=== PATIENT | female | born 1955 | race Two or more races ===

== ENCOUNTER → 2016-08-30 | Outpatient (REF) | payer BC ==
[2016-08-30 17:34] LABS: ALBUMIN 4.2 GM/DL (3.2-5.2); ALBUMIN/GLOBULIN RATIO 1.62 (1.00-1.93); ALKALINE PHOSPHATASE 45 U/L (45-117); ALT/SGPT 15 U/L (12-78); ANION GAP 9 MEQ/L (8-16); AST/SGOT 8 U/L (15-37); BILIRUBIN,TOTAL 0.5 MG/DL (0.2-1.0); BLOOD UREA NITROGEN 17 MG/DL (7-18); CALCIUM LEVEL 9.1 MG/DL (8.8-10.2); CARBON DIOXIDE LEVEL 28 MEQ/L (21-32); CHLORIDE LEVEL 106 MEQ/L (98-107); CHOLESTEROL LEVEL 256 MG/DL (<200); CREATININE FOR GFR 0.79 MG/DL (0.55-1.02); GLOMERULAR FILTRATION RATE > 60.0 (>45); GLUCOSE, FASTING 103 MG/DL (80-110); POTASSIUM SERUM 4.4 MEQ/L (3.5-5.1); SODIUM LEVEL 143 MEQ/L (136-145); TOTAL PROTEIN 6.8 GM/DL (6.4-8.2); TRIGLYCERIDES LEVEL 159 MG/DL (<150)
== END ==
LOC: M SFHCCLAY 10:00
PROVIDERS: ATTEND Family Medicine
DX: E78.4 Other hyperlipidemia (principal)

== ENCOUNTER → 2016-08-30 | Outpatient (CLI) | payer BC ==
--- NOTE | 2016-08-30 10:54 | REP ---
Clinical: Right chest and rib pain . Comparison: None . Technique: PA and lateral. Findings: The mediastinum and cardiac silhouette are normal. The lung camacho are clear and without acute consolidation, effusion, or pneumothorax. The skeletal structures are intact and normal. Impression: 1. No acute cardiopulmonary process.
== END ==
LOC: M CLY 10:12
PROVIDERS: ATTEND Family Medicine
DX: R07.81 Pleurodynia (principal)

== ENCOUNTER → 2016-10-29 | Outpatient (CLI) | payer BC ==
[2016-10-29 18:21] LABS: ALBUMIN 3.9 GM/DL (3.2-5.2); ANION GAP 9 MEQ/L (8-16); BLOOD UREA NITROGEN 21 MG/DL (7-18); CARBON DIOXIDE LEVEL 27 MEQ/L (21-32); CHLORIDE LEVEL 106 MEQ/L (98-107); CREATININE FOR GFR 0.93 MG/DL (0.55-1.02); GLOMERULAR FILTRATION RATE > 60.0 (>45); GLUCOSE, FASTING 106 MG/DL (80-110); MAGNESIUM LEVEL 2.3 MG/DL (1.8-2.4); PHOSPHORUS LEVEL 3.8 MG/DL (2.5-4.9); POTASSIUM SERUM 4.1 MEQ/L (3.5-5.1); SODIUM LEVEL 142 MEQ/L (136-145)
== END ==
LOC: M LAB 16:23
PROVIDERS: ATTEND Internal Medicine Cardiovascular Disease
DX: I10 Essential (primary) hypertension (principal); R00.2 Palpitations; R94.31 Abnormal electrocardiogram [ECG] [EKG]

== ENCOUNTER → 2016-12-12 | Outpatient (CLI) | payer BC ==
[2016-12-12 09:03] LABS: ALBUMIN 3.9 GM/DL (3.2-5.2); ALBUMIN/GLOBULIN RATIO 1.39 (1.00-1.93); BILIRUBIN,DIRECT 0.1 MG/DL (0.0-0.2); BILIRUBIN,TOTAL 0.5 MG/DL (0.2-1.0); TOTAL PROTEIN 6.7 GM/DL (6.4-8.2)
== END ==
LOC: M LAB 07:56
PROVIDERS: ATTEND Internal Medicine Cardiovascular Disease
DX: E78.00 Pure hypercholesterolemia, unspecified (principal)

== ENCOUNTER → 2017-03-14 | Outpatient (CLI) | payer BC ==
--- NOTE | 2017-03-14 14:30 | REPMRS ---
Patient History The patient states she had a clinical breast exam in November 2016. Family history of prostate cancer in maternal grandfather at age 75 and breast cancer in paternal aunt at age 65. Took hormonal contraceptives for 5 years. Taking estrogen for 3 months. Taking unspecified hormones for 3 years. Digital Mammo Screening Bilat: March 14, 2017 - Exam #: [id number] Bilateral CC and MLO view(s) were taken. Technologist: Joanna Santiago, Technologist Prior study comparison: February 21, 2016, bilateral digital mammo screening bilat performed at [facility]. November 05, 2014, bilateral digital mammo screening bilat performed at [facility]. October 28, 2013, bilateral bilat screen digital mammo, performed at [facility] ([facility]). FINDINGS: There are scattered fibroglandular densities. There has been no change in the appearance of the mammogram from the prior studies. There is a mild amount of scattered fibroglandular density which is fairly symmetric. There is no interval development of dominant mass, architectural distortion, or clustered microcalcification suggestive of malignancy. ASSESSMENT: BI-RADS/ACR category 1 mammogram. Negative. Recommendation Routine screening mammogram in 1 year (for women over age 40). This mammogram was interpreted with the aid of an FDA-approved computer-aided dectection system. Electronically Signed By: Jigar Moses MD 03/14/17 1370
== END ==
LOC: M RAD 13:51
PROVIDERS: ATTEND Specialist
DX: Z12.31 Encounter for screening mammogram for malignant neoplasm of breast (principal)

== ENCOUNTER → 2017-03-14 | Outpatient (CLI) | payer BC ==
[2017-03-14 15:45] LABS: ALBUMIN 4.1 GM/DL (3.2-5.2); CREATININE FOR GFR 1.08 MG/DL (0.55-1.02); GLOMERULAR FILTRATION RATE 54.7 (>45); PHOSPHORUS LEVEL 3.7 MG/DL (2.5-4.9); POTASSIUM SERUM 3.9 MEQ/L (3.5-5.1)
== END ==
LOC: M LAB 14:17
PROVIDERS: ATTEND Internal Medicine Cardiovascular Disease
DX: I10 Essential (primary) hypertension (principal)

== ENCOUNTER → 2017-04-17 | Outpatient (CLI) | payer BC ==
--- NOTE | 2017-04-17 13:23 | PFTRPT ---
Tech: Margarito ARMSTRONG RRT Age: 62 Sex: Female Race: Height: 63.00 Inches Weight: 166.00 Lbs BSA: 1.79 Diagnosis: R06.09 PULMONARY FUNCTION REPORT ORDERING PROVIDER: Vishal Ruiz DO DATE OF SERVICE: 04/17/17 SPIROMETRY: Excellent technical quality. The forced vital capacity is normal. The FEV1 is in proportion. The obstructive index is, therefore, normal. FLOW VOLUME LOOP: The expiratory limb of the flow volume loop is normal. LUNG VOLUMES: The total lung capacity is normal. The residual volume is borderline for air trapping. DIFFUSION CAPACITY: The diffusion capacity is normal. HEMOGLOBIN: No hemoglobin is available for correction. AIRWAY MECHANICS: Airways resistance and conductance are normal. IMPRESSION: Borderline air trapping; otherwise, normal study. Please correlate clinically. MTDD
== END ==
LOC: M CARPUL 12:48
PROVIDERS: ATTEND Family Medicine
DX: R06.09 Other forms of dyspnea (principal)

== ENCOUNTER → 2017-06-06 | Outpatient (RCR) | payer BC | LOC: M PT 05-21 15:37 | PROVIDERS: ATTEND Family Medicine | DX: Z51.89 Encounter for other specified aftercare (principal); M54.6 Pain in thoracic spine; M54.5 Low back pain | CPT/HCPCS: 97035; 97110; 97162; G0283 ==

== ENCOUNTER 2017-06-10 15:41 | Outpatient (RCR) | payer BC | END 2017-07-07 | LOC: M PT 15:41 | DX: Z51.89 Encounter for other specified aftercare (principal); M54.6 Pain in thoracic spine; M54.5 Low back pain | CPT/HCPCS: 97110 ==

== ENCOUNTER 2017-07-12 12:47 | Outpatient (RCR) | payer BC | END 2017-08-07 | LOC: M PT 12:47 | DX: Z51.89 Encounter for other specified aftercare (principal); M54.6 Pain in thoracic spine; M54.5 Low back pain | CPT/HCPCS: 97110 ==

== ENCOUNTER → 2017-07-18 | Outpatient (REF) | payer BC ==
[2017-07-18 13:14] LABS: BASO # 0.1 10^3/uL (0.0-0.2); BASO % 1.2 % (0.0-1.0); EOS # 0.2 10^3/uL (0.0-0.50); EOS % 3.9 % (0.0-3.0); HEMATOCRIT 39.7 % (36.0-47.0); HEMOGLOBIN 13.3 g/dl (12.0-16.0); LYMPH # 1.7 10^3/uL (1.5-4.5); LYMPH % 39.7 % (24.0-44.0); MEAN CORPUSCULAR HEMOGLOBIN 30.9 pg (27.0-33.0); MEAN CORPUSCULAR HGB CONC 33.5 g/dl (32.0-36.5); MEAN CORPUSCULAR VOLUME 92.3 fl (80.0-96.0); MONO # 0.4 10^3/uL (0.0-0.8); MONO % 9.3 % (0.0-5.0); NEUTROPHILS % 45.9 % (36.0-66.0); PLATELET COUNT, AUTOMATED 243 10^3/uL (150-450); WHITE BLOOD COUNT 4.3 10^3/uL (4.0-10.0)
[2017-07-18 14:00] LABS: FOLATE 17.4 NG/ML (>5.4); VITAMIN B12 LEVEL 370 PG/ML (247-911)
[2017-07-18 14:19] LABS: ALBUMIN 4.3 GM/DL (3.2-5.2); ALBUMIN/GLOBULIN RATIO 1.59 (1.00-1.93); ALKALINE PHOSPHATASE 52 U/L (45-117); ALT/SGPT 20 U/L (12-78); ANION GAP 8 MEQ/L (8-16); AST/SGOT 14 U/L (7-37); BILIRUBIN,TOTAL 0.5 MG/DL (0.2-1.0); BLOOD UREA NITROGEN 23 MG/DL (7-18); CALCIUM LEVEL 9.3 MG/DL (8.8-10.2); CARBON DIOXIDE LEVEL 29 MEQ/L (21-32); CHLORIDE LEVEL 104 MEQ/L (98-107); CHOLESTEROL LEVEL 161 MG/DL (<200); CHOLESTEROL RISK RATIO 3.037 (<5); CREATININE FOR GFR 0.91 MG/DL (0.55-1.02); GLOMERULAR FILTRATION RATE > 60.0 (>45); GLUCOSE, FASTING 119 MG/DL (80-110); HDL CHOLESTEROL 53 MG/DL (>40); LDL CHOLESTEROL 79.4 MG/DL (<100); MAGNESIUM LEVEL 2.2 MG/DL (1.8-2.4); NON-HDL-C 108 MG/DL; POTASSIUM SERUM 4.3 MEQ/L (3.5-5.1); SODIUM LEVEL 141 MEQ/L (136-145); TRIGLYCERIDES LEVEL 143 MG/DL (<150)
[2017-07-22 14:11] LABS: VITAMIN D 1,25 DIHYDROXY 45.8 pg/mL (19.9-79.3)
== END ==
LOC: M SFHCCLAY 09:05
DX: E78.4 Other hyperlipidemia (principal); E53.8 Deficiency of other specified B group vitamins; K50.90 Crohn's disease, unspecified, without complications; R20.2 Paresthesia of skin; R20.0 Anesthesia of skin; E55.9 Vitamin D deficiency, unspecified
CPT/HCPCS: 82746

== ENCOUNTER → 2018-03-06 | Outpatient (CLI) | payer BC | LOC: M CLY 11:06 | DX: M25.572 Pain in left ankle and joints of left foot (principal) ==

== ENCOUNTER 2018-03-13 14:18 | Outpatient (RCR) | payer BC | END 2018-04-06 | LOC: M PT 14:18 | DX: M79.605 Pain in left leg (principal) | CPT/HCPCS: 97010 ==

== ENCOUNTER → 2018-03-17 | Outpatient (REF) | payer BC ==
[2018-03-17 19:23] LABS: APPEARANCE, URINE CLEAR (CLEAR); BACTERIA, URINE AUTO NEGATIVE (NEGATIVE); BILIRUBIN, URINE AUTO NEGATIVE (NEGATIVE); BLOOD, URINE BLOOD NEGATIVE (NEGATIVE); COLOR, URINE YELLOW (YELLOW); GLUCOSE, URINE (UA) AUTO NEGATIVE (NEGATIVE); KETONE, URINE AUTO NEGATIVE (NEGATIVE); LEUKOCYTE ESTERASE, URINE AUTO NEGATIVE (NEGATIVE); MUCUS, URINE SMALL (NEGATIVE); NITRITE, URINE AUTO NEGATIVE (NEGATIVE); PROTEIN, URINE AUTO NEGATIVE (NEGATIVE); RBC, URINE AUTO 0 /HPF (0-3); SPECIFIC GRAVITY URINE AUTO 1.012 (1.002-1.035); SQUAMOUS EPITHELIAL CELL UR AU 0 /HPF (0-6); UROBILINOGEN, URINE AUTO 0.2 mg/dL (0.0-2.0); WBC, URINE AUTO 1 /HPF (0-3)
== END ==
LOC: M SMT 17:10
DX: N39.0 Urinary tract infection, site not specified (principal)
CPT/HCPCS: 81001

== ENCOUNTER 2018-06-11 07:03 | Day surgery (SDC) | payer BC ==
[2018-06-11] MEDS ORDERED: LIDOCAINE 2% INJ 100 MG/5 ML SDV (FOR ANES.) As Ordered (07:14)
[2018-06-11] MEDS ORDERED: PROPOFOL 200 MG/20 ML VIAL As Ordered ×2 (07:14→08:12)
[2018-06-11] MEDS: NS 1,000 ML IV (07:30)
== END 2018-06-11 08:59 | disposition home or self-care (01) ==
LOC: M OPP 07:03
DX: C21.8 Malignant neoplasm of overlapping sites of rectum, anus and anal canal (principal); K57.30 Diverticulosis of large intestine without perforation or abscess without bleeding; I10 Essential (primary) hypertension; K21.9 Gastro-esophageal reflux disease without esophagitis; K50.90 Crohn's disease, unspecified, without complications; Z86.718 Personal history of other venous thrombosis and embolism; M12.9 Arthropathy, unspecified; Z87.440 Personal history of urinary (tract) infections; Z79.899 Other long term (current) drug therapy
CPT/HCPCS: 45380

== ENCOUNTER → 2018-06-27 | Outpatient (CLI) | payer BC ==
[~2018-06-27] MED LIST: ACET-683 PO; ASPI81TA85 PO; ATOR40TA75 PO; CHLO125TA PO; FOLI800C PO; MAGN250T9 PO; MYRB50TA PO; NITR100C2 PO; OMEP20CA3 PO; SPIR-10 PO; VITA100072 PO; VITA200016 PO
[2018-06-27 11:27] LABS: ALT/SGPT 19 U/L (12-78); BILIRUBIN,TOTAL 0.5 MG/DL (0.2-1.0); BLOOD UREA NITROGEN 17 MG/DL (7-18); CALCIUM LEVEL 8.8 MG/DL (8.8-10.2); CARBON DIOXIDE LEVEL 25 MEQ/L (21-32); CHLORIDE LEVEL 103 MEQ/L (98-107); CREATININE FOR GFR 0.84 MG/DL (0.55-1.30); GLOMERULAR FILTRATION RATE > 60.0 (>45); GLUCOSE, FASTING 110 MG/DL (70-100); POTASSIUM SERUM 3.9 MEQ/L (3.5-5.1); SODIUM LEVEL 138 MEQ/L (136-145); TOTAL PROTEIN 7.2 GM/DL (6.4-8.2)
== END ==
LOC: M LAB 10:16
PROVIDERS: ATTEND Radiology Therapeutic Radiology
DX: C21.8 Malignant neoplasm of overlapping sites of rectum, anus and anal canal (principal)

== ENCOUNTER 2018-09-14 17:38 | Inpatient (IN) | payer BC ==
[~2018-09-14] VITALS: Ht 160 cm; Wt 60.1 kg
[2018-09-14] MEDS ORDERED: IMOD2TAB16 PO (18:51)
[2018-09-14] MEDS ORDERED: CALC500C16 PO (18:51)
[2018-09-14] MEDS ORDERED: BUDE3CAP PO (18:51)
[2018-09-14] MEDS ORDERED: XARE15TA PO (18:51)
[2018-09-14] MEDS ORDERED: LIDO2.5C15 TOP (18:51)
[2018-09-14 19:43] LABS: BASO % 0.5 % (0.0-1.0); EOS % 0.2 % (0.0-3.0); HEMATOCRIT 28.6 % (36.0-47.0); HEMOGLOBIN 9.2 g/dl (12.0-15.5); LYMPH # 1.6 10^3/uL (1.5-4.5); LYMPH % 23.4 % (24.0-44.0); MEAN CORPUSCULAR HEMOGLOBIN 31.2 pg (27.0-33.0); MEAN CORPUSCULAR HGB CONC 32.2 g/dl (32.0-36.5); MEAN CORPUSCULAR VOLUME 96.9 fl (80.0-96.0); MONO # 0.6 10^3/uL (0.0-0.8); MONO % 9.2 % (0.0-5.0); NEUTROPHILS # 4.3 10^3/uL (1.8-7.7); PLATELET COUNT, AUTOMATED 260 10^3/uL (150-450); RED BLOOD COUNT 2.95 10^6/uL (4.00-5.40); WHITE BLOOD COUNT 6.6 10^3/uL (4.0-10.0)
[2018-09-14 19:55] LABS: INR 1.97; PROTHROMBIN TIME 22.8 SECONDS (12.1-14.4)
[2018-09-14 19:56] LABS: PARTIAL THROMBOPLASTIN TIME 34.6 SECONDS (25.4-37.6)
[2018-09-14 20:10] LABS: ALBUMIN 3.1 GM/DL (3.2-5.2); ALT/SGPT 32 U/L (12-78); BILIRUBIN,DIRECT 0.1 MG/DL (0.0-0.2); BILIRUBIN,TOTAL 0.3 MG/DL (0.2-1.0); BLOOD UREA NITROGEN 9 MG/DL (7-18); CALCIUM LEVEL 8.1 MG/DL (8.8-10.2); CARBON DIOXIDE LEVEL 22 MEQ/L (21-32); CHLORIDE LEVEL 112 MEQ/L (98-107); CK-MB VALUE MASS < 1.0 NG/ML (<3.6); CPK CREATINE PHOSPHOKINASE 24 U/L (26-192); CREATININE FOR GFR 0.87 MG/DL (0.55-1.30); FREE T4 1.19 NG/DL (0.76-1.46); GLOMERULAR FILTRATION RATE > 60.0 (>45); GLUCOSE, FASTING 97 MG/DL (70-100); MAGNESIUM LEVEL 2.1 MG/DL (1.8-2.4); MB/CK RELATIVE INDEX 4.17 (< OR =4); SODIUM LEVEL 143 MEQ/L (136-145); TROPONIN I < 0.02 NG/ML (< 0.10)
[2018-09-14 20:15] LABS: INFLUENZA A AMPLIFICATION NEGATIVE (NEGATIVE); INFLUENZA B AMPLIFICATION NEGATIVE (NEGATIVE)
[2018-09-14] MEDS ORDERED: ISOVUE-370 76% 100ML VIAL (Q9967) As Ordered ONE (21:01)
--- NOTE | 2018-09-14 21:14 | ECGEPIP ---
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
--- NOTE | 2018-09-14 22:06 | REPVR ---
EXAM: CT Angiography Chest With Contrast EXAM DATE/TIME: 09/14/2018 9:04 PM CLINICAL HISTORY: 63 years old, female; Signs and symptoms; Shortness of breath; Additional info: SOB, HX of pe's, anal cancer, frequent bm's TECHNIQUE: Axial computed tomographic angiography images of the chest with intravenous contrast using CT angiography protocol. All CT scans at this facility use at least one of these dose optimization techniques: automated exposure control; mA and/or kV adjustment per patient size (includes targeted exams where dose is matched to clinical indication); or iterative reconstruction. Coronal and sagittal reformatted images were created and reviewed. MIP reconstructed images were created and reviewed. CONTRAST: Contrast Material: 100 ml of ISOVUE 370; Contrast Route: IV COMPARISON: CR Chest, 2 view PA, Lat 09/14/2018 7:35 PM FINDINGS: Pulmonary arteries: No pulmonary embolus. Aorta: The aorta demonstrates mild atherosclerotic calcification. No aortic aneurysm or dissection. Lungs: There is bibasilar compressive atelectasis. Small upper lobe subpleural nodules on the right measure up to 4 millimeters. These are likely postinflammatory. No followup necessary. Lungs otherwise clear. Pleural space: Right apical pleural-parenchymal scarring. Heart: Normal. No cardiomegaly. No pericardial effusion. Lymph nodes: Unremarkable. No enlarged lymph nodes. Bones/joints: The spine demonstrates mild degenerative changes. Soft tissues: Unremarkable. IMPRESSION: 1. No aortic aneurysm or dissection. 2. No pulmonary embolus. Electronically signed by: James Bryan On 09/14/2018 22:06:33 PM
--- NOTE | 2018-09-14 22:10 | REPVR ---
EXAM: CT Abdomen and Pelvis With Contrast EXAM DATE/TIME: 09/14/2018 9:04 PM CLINICAL HISTORY: 63 years old, female; Pain; Abdominal pain; Generalized; Additional info: SOB, HX of pe's, anal cancer, frequent bm's TECHNIQUE: Axial computed tomography images of the abdomen and pelvis with intravenous contrast. All CT scans at this facility use at least one of these dose optimization techniques: automated exposure control; mA and/or kV adjustment per patient size (includes targeted exams where dose is matched to clinical indication); or iterative reconstruction. Coronal and sagittal reformatted images were created and reviewed. CONTRAST: Contrast Material: 100 ml of ISOVUE 370; Contrast Route: IV COMPARISON: CT ABD PELVIS W/O CONTRAST 10/21/2014 4:36 PM FINDINGS: ABDOMEN: Liver: Normal. No mass. Gallbladder and bile ducts: The gallbladder is incompletely distended. This is most likely related to incomplete fasting. Clinical correlation to exclude gallbladder pathology suggested. Pancreas: Normal. No ductal dilation. Spleen: Normal. No splenomegaly. Adrenals: Normal. No mass. Kidneys and ureters: Normal. No hydronephrosis. Stomach and bowel: Several nondilated loops of small bowel demonstrate diffuse wall thickening, findings which may indicate the presence of enteritis. Mild diverticulosis is present in the distal colon. No diverticulitis. There is increased feces throughout the colon consistent with constipation. Appendix: No evidence of appendicitis. PELVIS: Bladder: Unremarkable as visualized. Reproductive: There has been a hysterectomy. ABDOMEN and PELVIS: Intraperitoneal space: Normal. No free air. No significant fluid collection. Bones/joints: The spine demonstrates mild degenerative changes. Soft tissues: Unremarkable. Vasculature: Normal. No abdominal aortic aneurysm. Lymph nodes: Normal. No enlarged lymph nodes. IMPRESSION: 1. The gallbladder is incompletely distended. This is most likely related to incomplete fasting. Clinical correlation to exclude gallbladder pathology suggested. 2. Several nondilated loops of small bowel demonstrate diffuse wall thickening, findings which may indicate the presence of enteritis. 3. Mild diverticulosis is present in the distal colon. No diverticulitis. 4. There has been a hysterectomy. 5. There is increased feces throughout the colon consistent with constipation. Electronically signed by: James Bryan On 09/14/2018 22:10:01 PM
[2018-09-14] MEDS ORDERED: AMIODARONE HCL 150 MG in APPROPRIATE DILUENT 1 EA IV STA (22:46)
[2018-09-14] MEDS ORDERED: NS 1,000 ML IV SCH (23:25)
[2018-09-14] MEDS ORDERED: VITA100066 PO (23:57)
[2018-09-14] MEDS ORDERED: B-12100011 SL (23:57)
[2018-09-15] MEDS: CALCIUM CARBONATE 500 MG CHEW U/D PO SCH ×2 (02:49→21:12)
--- NOTE | 2018-09-15 04:21 | REP ---
Clinical: Shortness of breath . Comparison: 08/30/2016 . Technique: PA and lateral. Findings: The mediastinum and cardiac silhouette are normal. [id number] with tip in the SVC. The lung camacho are clear and without acute consolidation, effusion, or pneumothorax. The skeletal structures are intact and normal. Impression: 1. No acute cardiopulmonary process. Electronically Signed by Sami Adorno MD 09/15/2018 04:12 A
[2018-09-15 07:00] VITALS: BP 102/66
[2018-09-15 08:00] VITALS: BP 121/66
[2018-09-15 08:33] VITALS: BP 137/79
[2018-09-15 08:36] LABS: BASO % 0.5 % (0.0-1.0); EOS % 0.3 % (0.0-3.0); HEMATOCRIT 24.5 % (36.0-47.0); HEMOGLOBIN 7.9 g/dl (12.0-15.5); LYMPH # 0.8 10^3/uL (1.5-4.5); LYMPH % 19.6 % (24.0-44.0); MEAN CORPUSCULAR HEMOGLOBIN 31.3 pg (27.0-33.0); MEAN CORPUSCULAR HGB CONC 32.2 g/dl (32.0-36.5); MEAN CORPUSCULAR VOLUME 97.2 fl (80.0-96.0); MONO # 0.5 10^3/uL (0.0-0.8); NEUTROPHILS # 2.5 10^3/uL (1.8-7.7); PLATELET COUNT, AUTOMATED 235 10^3/uL (150-450); RED BLOOD COUNT 2.52 10^6/uL (4.00-5.40); WHITE BLOOD COUNT 3.9 10^3/uL (4.0-10.0)
[2018-09-15 09:00] LABS: ALBUMIN 2.6 GM/DL (3.2-5.2); ALT/SGPT 23 U/L (12-78); BILIRUBIN,TOTAL 0.3 MG/DL (0.2-1.0); BLOOD UREA NITROGEN 6 MG/DL (7-18); CALCIUM LEVEL 7.8 MG/DL (8.8-10.2); CARBON DIOXIDE LEVEL 23 MEQ/L (21-32); CHLORIDE LEVEL 112 MEQ/L (98-107); CK-MB VALUE MASS < 1.0 NG/ML (<3.6); CPK CREATINE PHOSPHOKINASE 24 U/L (26-192); CREATININE FOR GFR 0.69 MG/DL (0.55-1.30); GLOMERULAR FILTRATION RATE > 60.0 (>45); GLUCOSE, FASTING 86 MG/DL (70-100); MB/CK RELATIVE INDEX 4.17 (< OR =4); POTASSIUM SERUM 3.3 MEQ/L (3.5-5.1); SODIUM LEVEL 143 MEQ/L (136-145); TOTAL PROTEIN 5.3 GM/DL (6.4-8.2); TROPONIN I 0.02 NG/ML (< 0.10)
[2018-09-15] MEDS: PANTOPRAZOLE 40MG TAB (PROTONIX) PO SCH (09:00)
[2018-09-15] MEDS: SPIRONOLACTONE 12.5MG PER 1/2 TABLET PO SCH (09:10)
[2018-09-15] MEDS: FOLIC ACID 1 MG TAB PO SCH (09:10)
[2018-09-15] MEDS: OMEPRAZOLE 20 MG CAP PO SCH (09:10)
[2018-09-15] MEDS: BUDESONIDE EC 3 MG CAP (ENTOCORT EC) PO SCH (09:10)
[2018-09-15] MEDS: RIVAROXABAN 15 MG TAB (XARELTO) PO SCH ×2 (09:10→21:12)
[2018-09-15] MEDS: VITAMIN D 1,000 INTERNATIONAL UNITS TABLET PO SCH ×2 (09:10→21:12)
[2018-09-15] MEDS: ACETAMINOPHEN 500 MG TAB PO SCH ×2 (09:11→21:13)
[2018-09-15] MEDS ORDERED: POTASSIUM CHLORIDE 10 MEQ SR TABLET PO ONE (14:00)
[2018-09-15 14:30] VITALS: BP 127/71
[2018-09-15 15:55] LABS: HEMATOCRIT 24.1 % (36.0-47.0); HEMOGLOBIN 7.7 g/dl (12.0-15.5); MEAN CORPUSCULAR HEMOGLOBIN 30.9 pg (27.0-33.0); MEAN CORPUSCULAR VOLUME 96.8 fl (80.0-96.0); PLATELET COUNT, AUTOMATED 245 10^3/uL (150-450); RED BLOOD COUNT 2.49 10^6/uL (4.00-5.40); WHITE BLOOD COUNT 3.4 10^3/uL (4.0-10.0)
[2018-09-15 16:00] VITALS: BP 120/71
--- NOTE | 2018-09-15 18:49 | IPN ---
DATE: 09/15/2018 Patient admitted overnight with symptomatic atrial fibrillation with rapid ventricular response, given amiodarone and converted back to sinus. Patient currently still feels weak. Reported palpitations resolved. Currently in sinus rhythm. Denies any chest pain, pressure or discomfort. Denies any fevers or chills. VITAL SIGNS: Temperature 99.3, pulse 78, respiratory rate 18, blood pressure 120/71, pulse oximetry 98% on room air. LABORATORY DATA: WBC 3.4, hemoglobin and hematocrit 7.7/24.1, platelets 245. Sodium 143, potassium 3.3, chloride 112, bicarbonate 23, BUN 6, creatinine 0.69. Cardiac enzymes negative times two. PHYSICAL EXAMINATION: GENERAL: Patient alert, comfortable, pale, in acute distress. HEENT: Normocephalic, atraumatic. PULMONARY: Bilaterally clear. ABDOMEN: Soft, nontender. EXTREMITIES: No clubbing, cyanosis, or edema. GENITOURINARY: Daly in place with peritoneal hyperpigmentation and lower peritoneal minimal skin breakdown and redness. ASSESSMENT AND PLAN: This is a 63-year-old female patient with underlying medical history of hypertension, Crohn's disease, vitamin D deficiency, history of thrombophlebitis, has received Coumadin, dyslipidemia. 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 Furthermore, two weeks ago, patient was admitted to [facility] with pancytopenia, septic shock, possible pneumonia, was in intensive care unit (ICU) requiring pressors and transfusions. Subsequently, patient recovered during ICU stay. Hospital course was also complicated with an episode of atrial fibrillation with rapid ventricular response, resolved after treatment with beta blockers. Patient subsequently was also found to have small segmental pulmonary embolisms (PEs) and lower extremity saphenous vein superficial thrombus. Pt initially was not started on anticoagulation due to pancytopenia but given patient's counts have improved as of 09/10/2017, patient was started on Xarelto by patient's oncologist, but since discharge from [facility] for the past week, patient has been feeling weak with palpitations intermittently with lack of energy and general malaise. She presented to [facility] Emergency Room, found to be in atrial fibrillation with rapid ventricular response, given amiodarone, and request was made to admit the patient. 1. Atrial fibrillation with rapid ventricular response, unknown etiology. Thyroid appreciated. Possibly secondary to chemotherapy versus recent septic shock versus pulmonary embolism (PE). Thyroid-stimulating hormone (TSH) within normal limits. Telemetry, serial cardiac enzymes have been negative, given amiodarone, currently converted back to sinus. Continue Xarelto. Consulted cardiology. Unfortunately, patient's telemetry strip in the emergency room was lost and currently patient is in sinus rhythm. Further recommendations per cardiology. 2. Generalized malaise, likely secondary to chemoradiation as well as underlying cancer with recently severe deconditioning due to septic shock. Acute rehabilitation has been consulted. 3. Hypokalemia. Supplement electrolytes. Patient had poor oral intake. 4. Anemia, likely secondary to recent chemotherapy. Transfusion has been ordered. Consented for transfusion. We will monitor closely. 5. Radiation dermatitis. Wound care as ordered. 6. Deconditioning. Physical therapy (PT)/occupational therapy (OT). 7. Hypertension. Continue aldactone. 8. Recent PE and superficial thrombophlebitis. Patient on Xarelto as per patient's pet handler. 9. Crohn's disease. Continue budesonide. Will need colonoscopy as per patient's radiation oncologist. 10. Hypertension. Aldactone has been ordered, continued. 11. Recently diagnosed squamous cell anorectal cancer, status post radiation and chemotherapy, last chemotherapy is 08/18/2018, last radiation 08/25/2018. Messaged left with patient's oncologist, Dr. James Torres, at [facility] at phone number [phone], awaiting call back. Case discussed with Dr. Coates, radiation oncologist, phone number [phone]. Agree with current management. 12. Peritoneal inflammation and dermatitis due to radiation, currently much improved. Discontinue Daly, voiding trial. 13. Deep vein thrombosis (DVT) prophylaxis. Patient on therapeutic Xarelto started on 09/10/2017. DISPOSITION: Pending physical therapy (PT)/occupational therapy (OT), cardiology consultation, echocardiogram, and possible acute rehabilitation transfer.
[2018-09-15 20:00] VITALS: BP 111/67
[2018-09-15] MEDS: FLECAINIDE 50MG TABLET PO SCH (21:12)
[2018-09-16] VITALS (7 sets, daily range): BP systolic 117–149; BP diastolic 57–84
[2018-09-16 06:11] LABS: BASO % 0.3 % (0.0-1.0); EOS % 0.3 % (0.0-3.0); HEMATOCRIT 27.9 % (36.0-47.0); HEMOGLOBIN 9.2 g/dl (12.0-15.5); LYMPH # 0.6 10^3/uL (1.5-4.5); LYMPH % 16.6 % (24.0-44.0); MEAN CORPUSCULAR HEMOGLOBIN 31.2 pg (27.0-33.0); MEAN CORPUSCULAR VOLUME 94.6 fl (80.0-96.0); MONO # 0.6 10^3/uL (0.0-0.8); MONO % 15.8 % (0.0-5.0); NEUTROPHILS # 2.4 10^3/uL (1.8-7.7); NEUTROPHILS % 65.4 % (36.0-66.0); PLATELET COUNT, AUTOMATED 230 10^3/uL (150-450); RED BLOOD COUNT 2.95 10^6/uL (4.00-5.40); WHITE BLOOD COUNT 3.7 10^3/uL (4.0-10.0)
[2018-09-16 06:35] LABS: BLOOD UREA NITROGEN 8 MG/DL (7-18); CARBON DIOXIDE LEVEL 24 MEQ/L (21-32); CHLORIDE LEVEL 112 MEQ/L (98-107); GLOMERULAR FILTRATION RATE > 60.0 (>45); GLUCOSE, FASTING 80 MG/DL (70-100); POTASSIUM SERUM 3.6 MEQ/L (3.5-5.1); SODIUM LEVEL 143 MEQ/L (136-145)
--- NOTE | 2018-09-16 07:22 | ECHO ---
DATE OF PROCEDURE: 09/15/2018 AGE: 63 GENDER: Female. HEIGHT: 63 inches. WEIGHT: 143 pounds. BODY SURFACE AREA: 1.68 sq m. INPATIENT: PCU Room 3220. REFERRING PHYSICIAN: Dr. Weber. INDICATION: Abnormal EKG, paroxysmal atrial fibrillation. MEASUREMENTS: 2D MEASUREMENTS: RV - 3.0 cm LV- 4.9 cm Septum - 1.0 cm Posterior wall - 1.0 cm Aortic root - 3.7 cm LA - 3.6 cm LVEF - 75% DOPPLER MEASUREMENTS: AV - 1.22 m/s LVOT - 1.96 m/s LVOT diameter- 1.8 cm MV-E: 77 A: 100 E/A ratio 0.8 Early mitral deceleration time 222 ms E-prime - 8.8 A-prime - 11 E/E prime ratio 8.8 PV - 0.85 m/s Pulmonary artery acceleration time 140 ms RVSP- 24 mmHg IVC - 1.9 cm COMMENT: Normal sinus rhythm without intraventricular conduction disturbance. M-mode and two-dimensional echocardiography was performed with pulsed, continuous wave, color flow, and tissue Doppler studies. Normal left ventricular size, wall thickness and hyperkinetic wall motion. Left atrial size upper limits of normal with current Doppler evidence of an impairment of LV diastolic function but normal estimated mean left atrial pressure. Normal right heart chamber sizes and motion with normal estimated pulmonary atrial pressure. Normal IVC size and collapse against an elevated central venous pressure. Normal-appearing aortic valve without functional abnormality. Normal year or aortic root size. Normal-appearing mitral valvular apparatus with physiological very mild insufficiency. No apparent intracardiac mass or pericardial effusion.
[2018-09-16] MEDS: PANTOPRAZOLE 40MG TAB (PROTONIX) PO SCH (09:00)
--- NOTE | 2018-09-16 09:41 | HPE ---
DATE OF ADMISSION: 09/14/2018 PRIMARY CARE PROVIDER: Dr. Ruiz HOSPICE EXECUTIVE DIRECTOR: Dr. Lopez SOLE ROUNDER: Dr. Aguirre ATTENDING PHYSICIAN: Dr. Weber CHIEF COMPLAINT: Generalized weakness and palpitations. HISTORY OF PRESENT ILLNESS: This patient is a 63-year-old white female with a recent history of adenocarcinoma who presented to the hospital here for evaluation of generalized weakness and palpitations. The history was provided by herself. She states back to June last year she was diagnosed with squamous cell carcinoma. For that she is following with an oncology service in [facility] and she received 2 rounds of chemotherapy and 24 radiation therapy from July to August this year. However, she ended up septic and pleural effusion and had to be hospitalized recently in [facility]. She was discharged home last Saturday. Since then she stated she feels very weak and also she has these persistent palpitations. She called Dr. Lopez' office and scheduled for appointment on Saturday. However due to persistent palpitations as well as weakness she decided to come to the emergency room (ER) for the following evaluation. In the ER her workup was not significant except mild anemia. She had a CT of chest as well as abdomen done which did not show any evidence of the pulmonary embolism. In the ER she was found to have paroxysmal atrial fibrillation. Her heart rate was up and down. On-call detector car operator, Dr. Lopez, was called by ER attending and recommended to give her one dose of amiodarone. Dr. Lopez will come to see her tomorrow morning. Medicine service called for the admission. REVIEW OF SYSTEMS: Denies fever, no chills, no headache. No blurred vision. No shortness of breath. No coughing. No chest pain but positive palpitations. No abdominal pain and no diarrhea. No tingling, numbness, or weakness in the arms or lower extremities but generalized weakness. All other systems reviewed but were negative. PAST MEDICAL HISTORY: 1. 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 Status post chemotherapy as well as radiation therapy. 2. Pulmonary embolism on Xarelto. 3. Hypertension. 4. Paroxysmal atrial fibrillation. 5. Urine retention on chronic Daly catheter. 6. Crohn's disease. 7. Acid reflux. PAST SURGICAL HISTORY: 1. Hysterectomy. 2. Bladder reconstruction. ALLERGIES: Allergic to CODEINE, MORPHINE, DILAUDID and SULFA DRUGS. SOCIAL HISTORY: Denies tobacco use, denies alcohol abuse, denies illicit drug abuse and she is F[employer]. 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 FAMILY HISTORY: Positive for myocardial infarction and one sister has history of blood clot. MEDICATIONS: Medications are reviewed. PHYSICAL EXAMINATION: VITAL SIGNS: Temperature is 96.7, heart rate is 87, respirations 16, blood pressure is 126/73, oxygen saturation is 96% on room air. GENERAL: She is awake, alert and oriented x3. She is not in acute distress. HEENT: Atraumatic. Pupils are equal, round, reactive to light. No jaundice. Extraocular muscles are intact. Ears, nose and throat are normal. Mouth: Mucosa is a little bit dry. NECK: No jugular venous distention (JVD). No bruits. LUNGS: Clear. No wheezing, no crackles. HEART: S1, S2, regular, no murmur. ABDOMEN: Soft, positive bowel sounds, nontender. LOWER EXTREMITIES: No edema in bilateral lower extremities. NEUROLOGIC: Nonfocal. SKIN: No rash. PSYCHIATRIC: No acute psychosis. DIAGNOSTIC LABORATORY STUDIES: Include the following: CBC and differential: WBC 6.6, hemoglobin and hematocrit (H and H) 9.2/28.6, platelets 260. Sodium 143, potassium 4.0, chloride 112, bicarbonate 22, BUN 9, creatinine 0.8, glucose 97. TSH was within normal limits. Chest clear to auscultation as well as abdomen CT is reviewed. IMPRESSION: 1. Paroxysmal atrial fibrillation currently in normal sinus rhythm. 2. Recent history of adenosquamous cell carcinoma. 3. Hypertension. 4. Pulmonary embolism. 5. Crohn's disease. 6. Gastroesophageal reflux disease (GERD). PLAN: The patient will be admitted to the progressive care unit (PCU) for close monitoring. In the ER she was found to have paroxysmal atrial fibrillation which converted itself. Dr. Lopez recommended giving one dose of amiodarone in the ER which was done and I will schedule an echocardiogram for tomorrow. Will continue her regular medications including Xarelto. Dr. Lopez will consult tomorrow.
[2018-09-16] MEDS: FOLIC ACID 1 MG TAB PO SCH (10:01)
[2018-09-16] MEDS: OMEPRAZOLE 20 MG CAP PO SCH (10:01)
[2018-09-16] MEDS: RIVAROXABAN 15 MG TAB (XARELTO) PO SCH ×2 (10:02→21:43)
[2018-09-16] MEDS: ACETAMINOPHEN 500 MG TAB PO SCH ×2 (10:02→21:44)
[2018-09-16] MEDS: FLECAINIDE 50MG TABLET PO SCH ×2 (10:02→21:43)
[2018-09-16] MEDS: VITAMIN D 1,000 INTERNATIONAL UNITS TABLET PO SCH ×2 (10:02→21:43)
[2018-09-16] MEDS: BUDESONIDE EC 3 MG CAP (ENTOCORT EC) PO SCH (10:02)
[2018-09-16] MEDS: SPIRONOLACTONE 12.5MG PER 1/2 TABLET PO SCH (10:02)
--- NOTE | 2018-09-16 11:06 | CR ---
DATE OF CONSULTATION: 09/15/2018 HISTORY OF PRESENT ILLNESS: This is a 63 YO F with history of recent chemotherapy and radiation or treatment of adenocarcinoma of the rectum. She follows with [facility] hematology oncology. About a month ago she was hospitalized with septic shock and was reportedly found to be in atrial fibrillation with rapid ventricular response. She also had a pulmonary embolism for which she was put on Xarelto. She came to the [facility] ER on September 14 with complaints of weakness and palpitations. She states that while laying in bed at home her heart was making "flips" and she was having chest pressure radiating to her carotids. In the emergency room she was found to have several events of atrial fibrillation with rapid ventricular response. However, we do not have strips to assess. The patient reports that she had not had any chest pain since this time. She is not experiencing any shortness of breath, and she believes that her lower extremity edema is improving. She denies any fevers or chills. No abdominal pain. No nausea, vomiting, and no diarrhea at this time. OBJECTIVE: VITAL SIGNS: Temperature 99.3, pulse 78, respiratory rate 18, blood pressure 120/71. She is saturating 96% on room air. PHYSICAL EXAMINATION: GENERAL: The patient is lying awake in bed, comfortable, very pale, in no acute distress. HEENT: She has moist mucous membranes. Normocephalic, atraumatic. Extraocular movements are intact. Tongue is midline. Dentition is good. PULMONARY: Clear to auscultation bilaterally without any adventitious breath sounds. No crackles. No rales. No rhonchi. CARDIAC: Regular rate and rhythm without any murmurs, rubs or gallops. She has a normal S1, S2 without S3 or S4. EXTREMITIES: Peripheral pulses are intact. No clubbing or cyanosis. 1+ pitting in her lower extremities bilaterally up to her shins. ABDOMEN: Soft and nontender to palpation. No lymphadenopathy. Positive bowel sounds. No masses appreciated. MUSCULOSKELETAL: She moves all of her extremities well. Strength is 5/5 in upper and lower extremities bilaterally. LABORATORIES: Her white blood cell count is 3.4 today. Hemoglobin is 7.7, hematocrit 24.1, and platelet count is 245. Her sodium is 143, potassium 3.3, chloride is 112, carbon dioxide 23, BUN 6, creatinine 0.69. Her calcium is 7.8, troponins have been negative this admission at less than 0.2. Her total protein is 5.3. Her albumin is 2.6. She underwent a CT angiogram in the emergency room, which was negative for any pulmonary embolism. She had no aortic aneurysm or dissection. She had a chest x-ray done that showed no acute cardiopulmonary process and she had a CT of the abdomen and pelvis that demonstrated a distended gallbladder, several nondilated loops of small bowel demonstrating diffuse wall thickening. She had mild diverticulosis and increased feces throughout the colon consistent with constipation. Her last echocardiogram was on 09/18/2016, which showed right proximal septal hypertrophy with normal left ventricular size and wall motion. She had normal left atrial size but left ventricular diastolic dysfunction and a normal left atrial pressure. She had normal right heart chamber sizes and PA and CVP pressures. Normal valvular structures and function and no pericardial effusion. On 09/19/2016, she underwent a treadmill stress SPECT study, which shows borderline increased pulmonary uptake at peak exercise. She had a normal left ventricular size and hyperkinetic wall motion with a left ventricular ejection fraction of 84%. There was no reversal of stress SPECT myocardial perfusion defect. On 09/13/2016 she had a Holter monitor, which showed normal sinus rhythm with a rate of 45 to 130, averaging 75 beats per minute. She had 12 PACs with no significant bradyarrhythmia or tachyarrhythmias. She did report shortness of breath, throat soreness and flutters correlating with a sinus rhythm at 90 to 128 beats per minute. ASSESSMENT AND PLAN: This is a 63-year-old woman with weakness and chest pain, found to have paroxysmal atrial fibrillation 1. Paroxysmal atrial fibrillation. The patient does have an underlying hypertensive heart disease and it is possible that this arrhythmia is triggered by her current illness. She most recently was in [facility] for her cancer treatment and was diagnosed with sepsis, was treated with pressors. Currently, she has normal sinus rhythm. Given her history of bradycardia, we will start flecainide 50 mg twice a day at this time. Continue the patient on continuous telemetry. Continue Xarelto at this time for history of pulmonary embolism. We will continue to monitor. 2. She had an abnormal EKG. Her EKG from the emergency room reads normal sinus rhythm with a normal MA interval, left axis deviation, slow R wave progression; however, there is no change from 2017 on her last EKG in the cardiology office. She does have coronary artery disease risk factors, but at this time she has a negative troponin, she is currently on a statin, and we will start her on flecainide and continue on Xarelto. 3. Hypertensive heart disease. Appears to be benign without any heart failure associated with it. She has had shortness of breath, but she does not show any other signs of symptoms of congestion at this time. 4. Dyspnea, may be secondary to her profound anemia. The patient is undergoing a transfusion of packed red blood cells at this time. We will continue to monitor for improvement of her shortness of breath with this transfusion. 5. Chronic venous insufficiency. At this time, she has no jugular venous distention (JVD), although she has somewhat lower extremity edema, she does not appear to be completely insufficient at this time. My faculty preceptor for this patient encounter was physically present during the encounter and was fully available. All aspects of the patient interview, examination, medical decision making process, and medical care plan development were reviewed and approved by the faculty preceptor. The faculty preceptor is aware and concurs with the plan as stated in the body of this note and will attest to such by his/her co-signature. JB
--- NOTE | 2018-09-16 14:47 | IPN ---
DATE: 09/16/2018 SUBJECTIVE: The patient reports she is doing well this morning. She had no events overnight. She denies any new cardiac events including no palpitations, no feelings as if she is dizzy, and she slept well overnight. REVIEW OF SYSTEMS: A ten point review of systems was reviewed and only pertinent positives were mentioned above in the history of present illness (HPI). OBJECTIVE: Her temperature is 97.2, pulse 67, respiratory rate 18, blood pressure 117/65, pulse oximetry is 97% on room air. PHYSICAL EXAMINATION: GENERAL: Patient is alert, awake, comfortable, in no acute distress. HEENT: She is normocephalic, atraumatic. Extraocular movements are intact. Tongue is midline. She has moist mucous membranes. No thyromegaly. PULMONARY: She is clear to auscultation bilaterally with no adventitious breath sounds appreciated. CARDIAC EXAM: She is normal S1, normal S2, regular rate and rhythm. No murmurs, rubs, or gallops. ABDOMEN: Soft, nontender to palpation, no masses or organomegaly appreciated. EXTREMITIES: She has no clubbing or cyanosis. She continues to have 1+ pitting edema in her lower extremities bilaterally. MUSCULOSKELETAL: She moves all of her extremities well and she has strength 5/5 in upper and lower extremities bilaterally. NEUROLOGIC: She has no focal deficits. PSYCHIATRIC: She has a normal mood and a normal affect. LABORATORY DATA: Today, her white blood cell count is 3.7, her hemoglobin 9.2 up from 7.7 yesterday, hematocrit is 27.9, and her platelet count is 230. Her sodium is 143, her potassium is 3.6, chloride is 112, carbon dioxide is 24, BUN is 8, creatinine is 0.7, and her calcium is 8.0. No other investigations at this time. ASSESSMENT AND PLAN: This is a 63-year-old female with a history of squamous cell carcinoma and colorectal cancer completing her treatment but found to have paroxysmal atrial fibrillation and chest pain with intermittent palpitations. 1. Paroxysmal atrial fibrillation: The patient was started on flecainide 50 mg twice a day yesterday. She continues on Xarelto as well. We will continue to monitor her for any episodes of atrial fibrillation at this time, however overnight she had none, neither does she complain of any chest pain or shortness of breath at this time. 2. Abnormal EKG: All troponins were negative. She is not displaying any tachyarrhythmias at this time. Continue the flecainide. 3. Hypertensive heart disease: Continue spironolactone. 4. Dyspnea likely secondary to anemia. The patient underwent transfusion of one unit of packed red blood cells yesterday. Her hemoglobin is up to 9.2 from 7.7 and it appears her shortness of breath has subjectively improved. Will continue to monitor. 5. Chronic venous insufficiency: Stable. My faculty preceptor for this patient encounter was physically present during the encounter and was fully available. All aspects of the patient interview, examination, medical decision making process, and medical care plan development were reviewed and approved by the faculty preceptor. The faculty preceptor is aware and concurs with the plan as stated in the body of this note and will attest to such by his/her cosignature. JB
[2018-09-16] MEDS: cefTRIAXone SOD 2 GM in D5W MINI-BAG PLUS 50 ML IV SCH (17:05)
[2018-09-16] MEDS: ACETAMINOPHEN TAB 650MG DOSE (2X325MG) PO PRN (17:15)
--- NOTE | 2018-09-16 20:53 | IPNPDOC ---
Text Note Date of Service The patient was seen on 09/16/18. NOTE Patient seen and examined. No acute events overnight. Patient currently still feels weak. Reported palpitations resolved. Currently in sinus rhythm. Denies any chest pain, pressure or discomfort. Denies any fevers or chills. PHYSICAL EXAMINATION: GENERAL: Patient alert, comfortable, pale, in acute distress. HEENT: Normocephalic, atraumatic. PULMONARY: Bilaterally clear. ABDOMEN: Soft, nontender. EXTREMITIES: No clubbing, cyanosis, or edema. GENITOURINARY: Daly in place with peritoneal hyperpigmentation and lower peritoneal minimal skin breakdown and redness. ASSESSMENT AND PLAN: This is a 63-year-old female patient with underlying medical history of hypertension, Crohn's disease, vitamin D deficiency, history of thrombophlebitis, has received Coumadin, dyslipidemia. Patient was diagnosed with colorectal cancer, squamous cell carcinoma, rectoanal cancer in March 2018, status post two cycles of chemotherapy at [facility] as well as one cycle of radiation, recently treated we 5FU and mitomycin, last treatment 08/18/2018 and last radiation 08/25/2018, complicated with radiation-induced dermatitis and skin breakdown in the peritoneal area. Furthermore, two weeks ago, patient was admitted to [facility] with pancytopenia, septic shock, possible pneumonia, was in intensive care unit (ICU) requiring pressors and transfusions. Subsequently, patient recovered during ICU stay. Hospital course was also complicated with an episode of atrial fibrillation with rapid ventricular response, resolved after treatment with beta blockers. Patient subsequently was also found to have small segmental pulmonary embolisms (PEs) and lower extremity saphenous vein superficial thrombus. Pt initially was not started on anticoagulation due to pancytopenia but given patient's counts have improved as of 09/10/2017, patient was started on Xarelto by patient's oncologist, but since discharge from [facility] for the past week, patient has been feeling weak with palpitations intermittently with lack of energy and general malaise. She presented to [facility] Emergency Room, found to be in atrial fibrillation with rapid ventricular response, given amiodarone, and request was made to admit the patient. 1. Atrial fibrillation with rapid ventricular response, unknown etiology. Thyroid appreciated. Possibly secondary to chemotherapy versus recent septic shock versus pulmonary embolism (PE). Thyroid-stimulating hormone (TSH) within normal limits. Telemetry, serial cardiac enzymes have been negative, given amiodarone, c urrently converted back to sinus. Continue Xarelto. Consulted cardiology. started on Flecainide as per cardio. Further recommendations per cardiology. 2. Generalized malaise, likely secondary to chemoradiation as well as underlying cancer with recently severe deconditioning due to septic shock. Acute rehabilitation has been consulted. 3. Hypokalemia. Supplement electrolytes. Patient had poor oral intake. 4. Anemia, likely secondary to recent chemotherapy. Transfusion has been ordered. Consented for transfusion. We will monitor closely. 5. Radiation dermatitis. Wound care as ordered. 6. Deconditioning. Physical therapy (PT)/occupational therapy (OT). 7. Hypertension. Continue aldactone. 8. Recent PE and superficial thrombophlebitis. Patient on Xarelto started 09/10, at current 15mg BID dose for 21 days then reduced dose as per patient's toll gate tender. 9. Crohn's disease. Continue budesonide. Will need colonoscopy as per patient's radiation oncologist. 10. Hypertension. Aldactone has been ordered, continued. 11. Recently diagnosed squamous cell anorectal cancer, status post radiation and chemotherapy, last chemotherapy is 08/18/2018, last radiation 08/25/2018. D/W with patient's oncologist, Dr. James Torres, at [facility] at phone number [phone]. Case discussed with Dr. Coates, radiation oncologist, phone number [phone]. Agree with current management. 12. Peritoneal inflammation and dermatitis due to radiation, currently much improved. Discontinue Daly, voiding trial. 13. Overactive bladder c/w home meds 14. Deep vein thrombosis (DVT) prophylaxis. Patient on therapeutic Xarelto started on 09/10/2017. DISPOSITION: Pending physical therapy (PT)/occupational therapy (OT), cardiology consultation, echocardiogram, and possible acute rehabilitation transfer. Saturday VS,Fishbone, I+O VS, Fishbone, I+O Laboratory Tests 09/16/18 05:26 Red Blood Count 2.95 L, Mean Corpuscular Volume 94.6, Mean Corpuscular Hemoglobin 31.2, Mean Corpuscular Hemoglobin Concent 33.0, Red Cell Distribution Width 16.7 H, Neutrophils (%) (Auto) 65.4, Lymphocytes (%) (Auto) 16.6 L, Mon ocytes (%) (Auto) 15.8 H, Eosinophils (%) (Auto) 0.3, Basophils (%) (Auto) 0.3, Neutrophils # (Auto) 2.4, Lymphocytes # (Auto) 0.6 L, Monocytes # (Auto) 0.6, Eosinophils # (Auto) 0.0, Basophils # (Auto) 0.0, Calcium Level 8.0 L Vital Signs Date Time Temp Pulse Resp B/P (MAP) Pulse Ox O2 Delivery O2 Flow Rate FiO2 09/16/18 16:00 98.6 70 18 141/65 (90) 98 09/15/18 06:00 Room Air I&O- Last 24 Hours up to 6 AM 09/16/18 06:00 Intake Total 660 ml Output Total 1120 ml Balance -460 ml JOSI MEI MD Sep 16, 2018 20:53
[2018-09-16] MEDS: CALCIUM CARBONATE 500 MG CHEW U/D PO SCH (21:43)
[2018-09-16] MEDS: LACTOBACILLUS ACIDOPHILUS CAP (BACID) PO SCH (21:43)
[2018-09-17 04:45] VITALS: BP 120/72
[2018-09-17 05:43] LABS: BASO % 0.6 % (0.0-1.0); EOS % 0.3 % (0.0-3.0); HEMATOCRIT 28.4 % (36.0-47.0); HEMOGLOBIN 9.4 g/dl (12.0-15.5); LYMPH # 0.6 10^3/uL (1.5-4.5); LYMPH % 16.9 % (24.0-44.0); MEAN CORPUSCULAR HEMOGLOBIN 31.5 pg (27.0-33.0); MEAN CORPUSCULAR HGB CONC 33.1 g/dl (32.0-36.5); MEAN CORPUSCULAR VOLUME 95.3 fl (80.0-96.0); MONO # 0.5 10^3/uL (0.0-0.8); MONO % 15.7 % (0.0-5.0); NEUTROPHILS # 2.2 10^3/uL (1.8-7.7); NEUTROPHILS % 65.9 % (36.0-66.0); PLATELET COUNT, AUTOMATED 241 10^3/uL (150-450); RED BLOOD COUNT 2.98 10^6/uL (4.00-5.40); WHITE BLOOD COUNT 3.4 10^3/uL (4.0-10.0)
[2018-09-17 06:06] LABS: BLOOD UREA NITROGEN 11 MG/DL (7-18); CALCIUM LEVEL 8.1 MG/DL (8.8-10.2); CARBON DIOXIDE LEVEL 24 MEQ/L (21-32); CHLORIDE LEVEL 111 MEQ/L (98-107); CREATININE FOR GFR 0.73 MG/DL (0.55-1.30); GLOMERULAR FILTRATION RATE > 60.0 (>45); GLUCOSE, FASTING 84 MG/DL (70-100); POTASSIUM SERUM 3.5 MEQ/L (3.5-5.1); SODIUM LEVEL 142 MEQ/L (136-145)
[2018-09-17 08:00] VITALS: BP 123/76
[2018-09-17] MEDS ORDERED: MYRBETRIQ 50 MG PO SCH (09:00)
[2018-09-17] MEDS: FOLIC ACID 1 MG TAB PO SCH (09:07)
[2018-09-17] MEDS: BUDESONIDE EC 3 MG CAP (ENTOCORT EC) PO SCH (09:07)
[2018-09-17] MEDS: VITAMIN D 1,000 INTERNATIONAL UNITS TABLET PO SCH ×2 (09:07→21:56)
[2018-09-17] MEDS: FLECAINIDE 50MG TABLET PO SCH ×2 (09:08→21:56)
[2018-09-17] MEDS: RIVAROXABAN 15 MG TAB (XARELTO) PO SCH ×2 (09:08→21:56)
[2018-09-17] MEDS: SPIRONOLACTONE 12.5MG PER 1/2 TABLET PO SCH (09:08)
[2018-09-17] MEDS: LACTOBACILLUS ACIDOPHILUS CAP (BACID) PO SCH ×3 (09:08→21:56)
[2018-09-17] MEDS: OMEPRAZOLE 20 MG CAP PO SCH (09:08)
[2018-09-17] MEDS: ACETAMINOPHEN 500 MG TAB PO SCH ×2 (09:09→21:00)
[2018-09-17 12:00] VITALS: BP 122/72
--- NOTE | 2018-09-17 14:40 | IPN ---
DATE OF SERVICE: 09/17/2018 The patient reports that she is doing well this morning. She has no complaints of palpitations or shortness of breath. She has no overnight events of atrial fibrillation, as she is currently in normal sinus rhythm. She is current feeling somewhat better than when she came into the hospital on her current regimen; however, she is still having decreased oral input, as she has no appetite. OBJECTIVE: Her vitals are: Temperature 98.3, pulse 69, respiratory rate of 18, blood pressure 120/72, pulse oximetry is 96% on room air. GENERAL: The patient is awake, comfortable, lying in bed and in no acute distress. HEENT: She is normocephalic, atraumatic. Extraocular movements are intact. Tongue is midline. She has moist mucous membranes and no thyromegaly. PULMONARY: Clear to auscultation bilaterally with no adventitious breath sounds appreciated. CARDIAC: She has a normal S1, normal S2. Regular rate and rhythm. No S3 or S4 heard. No murmurs, rubs or gallops. ABDOMEN: Soft and nontender to palpation. No masses or organomegaly is appreciated. EXTREMITIES: She has no clubbing or cyanosis. She continues to have 1+ pitting edema in her lower extremities bilaterally. MUSCULOSKELETAL: She moves all of her extremities well. She has a strength of 5/5 in upper and lower extremities bilaterally. NEUROLOGIC: She has no focal deficits. PSYCHIATRIC: She has normal mood and normal affect at this time. Input and output: She is net negative 1725 mL with no bowel movements recorded yesterday. LABORATORIES: Her white blood cell count is 3.4, hemoglobin 9.4 from 9.2 yesterday, hematocrit is 28.4 and her platelet count is 241. Chemistries: Her sodium is 142, potassium 3.5, chloride 111, carbon dioxide 24, BUN 11, creatinine 0.73, calcium 8.1. She was found to have on a urinalysis 1+ blood, 3+ leukocyte esterase, numerous white blood cells, suspicious for a urinary tract infection (UTI). Urine culture is pending at this time. ASSESSMENT AND PLAN: This is a 63-year-old female with a history of squamous cell carcinoma and colorectal cancer, who has just completed her chemotherapy and radiation and found to have paroxysmal atrial fibrillation and chest pain with intermittent palpitations. 1. Paroxysmal atrial fibrillation. The patient has been on flecainide 50 mg twice a day and she continues on Xarelto, which is for her suspected atrial fibrillation and for history of pulmonary embolus. She has not had any events since she has been moved to the progressive care unit (PCU). We will continue to monitor her for any episodes of atrial fibrillation at this time, although the patient does not report any chest pain or the palpitations that she was when she got admitted. 2. Abnormal electrocardiogram (EKG). She is not displaying any tachyarrhythmias at this time. Continue the flecainide. 3. Hypertensive heart disease. Her blood pressure has been normotension on this admission. Continue spironolactone. 4. Dyspnea, likely secondary to her anemia. He patient is status post transfusion of 1 unit of packed red blood cells 2 days ago. Her hemoglobin is stable at 9.4 and her shortness of breath has improved. We will continue to monitor. 5. Chronic venous insufficiency, stable. My faculty preceptor for this patient encounter was physically present during the encounter and was fully available. All aspects of the patient interview, examination, medical decision making process, and medical care plan development were reviewed and approved by the faculty preceptor. The faculty preceptor is aware and concurs with the plan as stated in the body of this note and will attest to such by his/her co-signature.
[2018-09-17 16:00] VITALS: BP_SYST 114; BP_SYST 148; BP_DIAS 67; BP_DIAS 77
[2018-09-17] MEDS: cefTRIAXone SOD 2 GM in D5W MINI-BAG PLUS 50 ML IV SCH (17:22)
[2018-09-17] MEDS: ACETAMINOPHEN TAB 650MG DOSE (2X325MG) PO PRN (17:32)
--- NOTE | 2018-09-17 19:38 | IPNPDOC ---
Text Note Date of Service The patient was seen on 09/17/18. NOTE Patient seen and examined. No acute events overnight. Patient currently still feels weak. Reported palpitations resolved. Currently in sinus rhythm with mild sinus letty. Denies any chest pain, pressure or discomfort. Denies any fevers or chills. PHYSICAL EXAMINATION: GENERAL: Patient alert, comfortable, pale, in acute distress. HEENT: Normocephalic, atraumatic. PULMONARY: Bilaterally clear. ABDOMEN: Soft, nontender. EXTREMITIES: No clubbing, cyanosis, or edema. NOA lemus DC ASSESSMENT AND PLAN: This is a 63-year-old female patient with underlying medical history of hypertension, Crohn's disease, vitamin D deficiency, history of thrombophlebitis, has received Coumadin, dyslipidemia. Patient was diagnosed with colorectal cancer, squamous cell carcinoma, rectoanal cancer in March 2018, status post two cycles of chemotherapy at [facility] as well as one cycle of radiation, recently treated we 5FU and mitomycin, last treatment 08/18/2018 and last radiation 08/25/2018, complicated with radiation-induced dermatitis and skin breakdown in the peritoneal area. Furthermore, two weeks ago, patient was admitted to [facility] with pancytopenia, septic shock, possible pneumonia, was in intensive care unit (ICU) requiring pressors and transfusions. Subsequently, patient recovered during ICU stay. Hospital course was also complicated with an episode of atrial fibrillation with rapid ventricular response, resolved after treatment with beta blockers. Patient subsequently was also found to have small segmental pulmonary embolisms (PEs) and lower extremity saphenous vein superficial thrombus. Pt initially was not started on anticoagulation due to pancytopenia but given patient's counts have improved as of 09/10/2017, patient was started on Xarelto by patient's oncologist, but since discharge from [facility] for the past week, patient has been feeling weak with palpitations intermittently with lack of energy and general malaise. She presented to [facility] Emergency Room, found to be in atrial fibrillation with rapid ventricular response, given amiodarone, and request was made to admit the patient. 1. Atrial fibrillation with rapid ventricular response, unknown etiology. Thyroid appreciated. Possibly secondary to chemotherapy versus recent septic shock versus pulmonary embolism (PE). Thyroid-stimulating hormone (TSH) within normal limits. Telemetry, serial cardiac enzymes have been negative, given amiodarone, currently converted back to sinus. Continue Xarelto. Consulted cardiology. started on Fl ecainide as per cardio. Further recommendations per cardiology. 2. Generalized malaise, likely secondary to chemoradiation as well as underlying cancer with recently severe deconditioning due to septic shock. Acute rehabilitation has been consulted. 3. Hypokalemia. Supplement electrolytes. Patient had poor oral intake. 4. Anemia, likely secondary to recent chemotherapy. Transfusion has been ordered. Consented for transfusion. We will monitor closely. 5. Radiation dermatitis. Wound care as ordered. 6. Deconditioning. Physical therapy (PT)/occupational therapy (OT). 7. Hypertension. Continue aldactone. 8. Recent PE and superficial thrombophlebitis. Patient on Xarelto started 09/10, at current 15mg BID dose for 21 days then reduced to 20mg Po daily as per patient's medical technologist blood bank. 9. Crohn's disease. Continue budesonide. con't vitamins. check Vit D, Folate, B12. Will need colonoscopy as per patient's radiation oncologist. 10. Hypertension. Aldactone has been ordered, continued. 11. Recently diagnosed squamous cell anorectal cancer, status post radiation and chemotherapy, last chemotherapy is 08/18/2018, last radiation 08/25/2018. D/W with patient's oncologist, Dr. James Torres, at [facility] at phone number [phone]. Case discussed with Dr. Coates, radiation oncologist, phone number [phone]. Agree with current management. 12. Peritoneal inflammation and dermatitis due to radiation, currently much improved. Discontinue Lemus, able to voiding 13. Overactive bladder c/w home meds 14. Deep vein thrombosis (DVT) prophylaxis. Patient on therapeutic Xarelto started on 09/10/2017. DISPOSITION: Pending physical therapy (PT)/occupational therapy (OT), cardiology consultation, echocardiogram, and possible acute rehabilitation transfer. Saturday VS,Hanybone, I+O VS, Fishbone, I+O Laboratory Tests 09/17/18 05:29 Red Blood Count 2.98 L, Mean Corpuscular Volume 95.3, Mean Corpuscular Hemoglobin 31.5, Mean Corpuscular Hemoglobin Concent 33.1, Red Cell Distribution Width 17.0 H, Neutrophils (%) (Auto) 65.9, Lymphocytes (%) (Auto) 16.9 L, Monocytes (%) (Auto) 15.7 H, Eosinophils (%) (Auto) 0.3, Basophils (%) (Auto) 0.6, Neutrophils # (Auto) 2.2, Lymphocytes # (Auto) 0.6 L, Monocytes # (Auto) 0.5, Eosinophils # (Auto) 0.0, Basophils # (Auto) 0.0, Calcium Level 8.1 L Vital Signs Date Time Temp Pulse Resp B/P (MAP) Pulse Ox O2 Delivery O2 Flow Rate FiO2 09/17/18 16:00 97.3 85 20 114/77 (89) 98 09/15/18 06:00 Room Air I&O- Last 24 Hours up to 6 AM 09/17/18 05:59 Intake Total 1370 ml Output Total 1475 ml Balance -105 ml JOSI MEI MD Sep 17, 2018 19:38
[2018-09-17 20:00] VITALS: BP 120/64
[2018-09-17] MEDS: MYRBETRIQ 50 MG PO SCH (21:56)
[2018-09-17] MEDS: CALCIUM CARBONATE 500 MG CHEW U/D PO SCH (21:56)
[2018-09-17 23:59] VITALS: BP 127/56
[2018-09-18] MEDS: ACETAMINOPHEN TAB 650MG DOSE (2X325MG) PO PRN ×2 (00:08→14:44)
[2018-09-18 04:00] VITALS: BP 119/63
[2018-09-18 06:10] LABS: BASO % 0.6 % (0.0-1.0); EOS % 0.3 % (0.0-3.0); HEMATOCRIT 29.2 % (36.0-47.0); HEMOGLOBIN 9.6 g/dl (12.0-15.5); LYMPH # 0.8 10^3/uL (1.5-4.5); LYMPH % 23.2 % (24.0-44.0); MEAN CORPUSCULAR HEMOGLOBIN 31.7 pg (27.0-33.0); MEAN CORPUSCULAR HGB CONC 32.9 g/dl (32.0-36.5); MEAN CORPUSCULAR VOLUME 96.4 fl (80.0-96.0); MONO # 0.5 10^3/uL (0.0-0.8); MONO % 15.2 % (0.0-5.0); NEUTROPHILS # 2.1 10^3/uL (1.8-7.7); NEUTROPHILS % 59.8 % (36.0-66.0); PLATELET COUNT, AUTOMATED 243 10^3/uL (150-450); RED BLOOD COUNT 3.03 10^6/uL (4.00-5.40); WHITE BLOOD COUNT 3.5 10^3/uL (4.0-10.0)
[2018-09-18 06:35] LABS: BLOOD UREA NITROGEN 12 MG/DL (7-18); CARBON DIOXIDE LEVEL 26 MEQ/L (21-32); CHLORIDE LEVEL 109 MEQ/L (98-107); CREATININE FOR GFR 0.73 MG/DL (0.55-1.30); GLOMERULAR FILTRATION RATE > 60.0 (>45); GLUCOSE, FASTING 96 MG/DL (70-100); POTASSIUM SERUM 3.7 MEQ/L (3.5-5.1); SODIUM LEVEL 143 MEQ/L (136-145)
[2018-09-18 08:00] VITALS: BP 130/81
[2018-09-18] MEDS: FLECAINIDE 50MG TABLET PO SCH ×2 (08:49→20:30)
[2018-09-18] MEDS: FOLIC ACID 1 MG TAB PO SCH (08:49)
[2018-09-18] MEDS: BUDESONIDE EC 3 MG CAP (ENTOCORT EC) PO SCH (08:50)
[2018-09-18] MEDS: OMEPRAZOLE 20 MG CAP PO SCH (08:50)
[2018-09-18] MEDS: RIVAROXABAN 15 MG TAB (XARELTO) PO SCH ×2 (08:50→20:30)
[2018-09-18] MEDS: SPIRONOLACTONE 12.5MG PER 1/2 TABLET PO SCH (08:51)
[2018-09-18] MEDS: VITAMIN D 1,000 INTERNATIONAL UNITS TABLET PO SCH ×2 (08:51→20:30)
[2018-09-18] MEDS: LACTOBACILLUS ACIDOPHILUS CAP (BACID) PO SCH ×3 (08:51→20:30)
[2018-09-18] MEDS: ACETAMINOPHEN 500 MG TAB PO SCH ×2 (08:52→20:31)
[2018-09-18 12:00] VITALS: BP 110/62
[2018-09-18 15:19] LABS: VITAMIN B12 LEVEL 1099 PG/ML (247-911)
[2018-09-18 15:20] LABS: FOLATE 12.8 NG/ML (>5.4)
[2018-09-18 15:32] LABS: TOTAL 25(OH) VITAMIN D 40.1 NG/ML (30.0-100.0)
[2018-09-18 16:00] VITALS: BP 121/72
[2018-09-18] MEDS: cefTRIAXone SOD 2 GM in D5W MINI-BAG PLUS 50 ML IV SCH (16:06)
--- NOTE | 2018-09-18 19:34 | IPNPDOC ---
Text Note Date of Service The patient was seen on 09/18/18. NOTE Patient seen and examined. No acute events overnight. Patient currently still feels weak. Reported palpitations resolved. Currently in sinus rhythm. Denies any chest pain, pressure or discomfort. Denies any fevers or chills. PHYSICAL EXAMINATION: GENERAL: Patient alert, comfortable, pale, in acute distress. HEENT: Normocephalic, atraumatic. PULMONARY: Bilaterally clear. ABDOMEN: Soft, nontender. EXTREMITIES: No clubbing, cyanosis, or edema. right perineal stage I lesion improved ASSESSMENT AND PLAN: This is a 63-year-old female patient with underlying medical history of hypertension, Crohn's disease, vitamin D deficiency, history of thrombophlebitis, dyslipidemia. 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 Furthermore, two weeks ago, patient was admitted to [facility] with pancytopenia, septic shock, possible pneumonia, was in intensive care unit (ICU) requiring pressors and transfusions. Subsequently, patient recovered during ICU stay. Hospital course was also complicated with an episode of atrial fibrillation with rapid ventricular response, resolved after treatment with beta blockers. Patient subsequently was also found to have small segmental pulmonary embolisms (PEs) and lower extremity saphenous vein superficial thrombus. Pt initially was not started on anticoagulation due to pancytopenia but given patient's counts have improved as of 09/10/2017, patient was started on Xarelto by patient's oncologist, but since discharge from [facility] for the past week, patient has been feeling weak with palpitations intermittently with lack of energy and general malaise. She presented to [facility] Emergency Room, found to be in atrial fibrillation with rapid ventricular response, given amiodarone, and request was made to admit the patient. 1. Atrial fibrillation with rapid ventricular response, unknown etiology. Thyroid appreciated. Possibly secondary to chemotherapy versus recent septic shock versus pulmonary embolism (PE). Thyroid-stimulating hormone (TSH) within normal limits. Telemetry for 72hr, serial cardiac enzymes have been negative, given amiodarone, currently converted back to sinus. Continue Xarelto. Consulted cardiology. started on Flecainide as per cardio. Further recommendations per cardiology. 2. Generalized malaise, likely secondary to chemoradiation as well as underlying cancer with recently severe deconditioning due to septic shock. Acute rehabilitation has been consulted. 3. Hypokalemia. Supplement electrolytes. Patient had poor oral intake. 4. Anemia, likely secondary to recent chemotherapy. Transfusion has been ordere d. Consented for transfusion. We will monitor closely. 5. Radiation dermatitis. Wound care as ordered. 6. Deconditioning. Physical therapy (PT)/occupational therapy (OT). 7. Hypertension. Continue spironolactone. 8. Recent PE and superficial thrombophlebitis. 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 9. Crohn's disease. Continue budesonide. con't vitamins. check Vit D, Folate, B12. Will need colonoscopy as per patient's radiation oncologist. 10. Hypertension. Aldactone has been ordered, continued. 11. Recently diagnosed squamous cell anorectal cancer, status post radiation and chemotherapy, last chemotherapy is 08/18/2018, last radiation 08/25/2018. D/W with patient's oncologist, Dr. James Torres, at [facility] at phone number [phone]. Case discussed with Dr. Coates, radiation oncologist, phone number [phone]. Agree with current management. 12. Peritoneal inflammation and dermatitis due to radiation, currently much improved. Discontinue Daly, able to voiding 13. Overactive bladder c/w home meds 14. Deep vein thrombosis (DVT) prophylaxis. Patient on therapeutic Xarelto started on 09/10/2017. DISPOSITION: Pending physical therapy (PT)/occupational therapy (OT), cardiology consultation, echocardiogram, and possible acute rehabilitation transfer. Saturday VS,Fishbone, I+O VS, Fishbone, I+O Laboratory Tests 09/18/18 05:33 Red Blood Count 3.03 L, Mean Corpuscular Volume 96.4 H, Mean Corpuscular Hemoglobin 31.7, Mean Corpuscular Hemoglobin Concent 32.9, Red Cell Distribution Width 17.2 H, Neutrophils (%) (Auto) 59.8, Lymphocytes (%) (Auto) 23.2 L, Monocytes (%) (Auto) 15.2 H, Eosinophils (%) (Auto) 0.3, Basophils (%) (Auto) 0.6, Neutrophils # (Auto) 2.1, Lymphocytes # (Auto) 0.8 L, Monocytes # (Auto) 0.5, Eosinophils # (Auto) 0.0, Basophils # (Auto) 0.0, Calcium Level 8.0 L Vital Signs Date Time Temp Pulse Resp B/P (MAP) Pulse Ox O2 Delivery O2 Flow Rate FiO2 09/18/18 16:00 98.2 78 18 121/72 (88) 98 09/15/18 06:00 Room Air I&O- Last 24 Hours up to 6 AM 09/18/18 06:00 Intake Total 1510 ml Output Total 1600 ml Balance -90 ml JOSI MEI MD Sep 18, 2018 19:34
[2018-09-18 20:00] VITALS: BP 110/63
[2018-09-18] MEDS: VITAMIN B12 1000 MCG SL SCH (20:29)
[2018-09-18] MEDS: MYRBETRIQ 50 MG PO SCH (20:29)
[2018-09-18] MEDS: CALCIUM CARBONATE 500 MG CHEW U/D PO SCH (20:30)
--- NOTE | 2018-09-18 20:48 | IPN ---
CARDIOLOGY PROGRESS NOTE: 09/18/2018 SUBJECTIVE The patient has been up walking in the means short distances and has been feeling stronger each day with the help of physical therapy and her blood transfusions. Has been completely free of any further palpitations on low-dose flecainide. OBJECTIVE Pleasant, slim late middle-aged woman currently lying comfortably with the head of the bed elevated 30 degrees. Heart rate 78 bpm and regular. Blood pressure 121/72, respiratory rate 18, O2 saturation 98% on room air. Afebrile. Her weight has been stable the past 3 days. 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 Rhythm has been regular sinus. BLOOD WORK: Hemoglobin today 9.6 up from 7.7 September 15. White blood cell count remains soft at 3.5, platelet count has normalized. Remains on Xarelto twice a day for her pulmonary embolism without manifest bleeding. Electrolytes were normal with BUN 12, creatinine 0.7, fasting glucose 96, magnesium 2.0, albumin was 2.6 September 15. IMPRESSION / PLAN 1. Paroxysmal atrial fibrillation: Controlled on low-dose flecainide 50 mg twice a day. Remains on Xarelto for her pulmonary embolism but this would be continued after a 21-day course to regular dosage once a day. A followup EKG will be obtained tomorrow but at this point 72 hours on flecainide I believe she could be safely discharged from our standpoint. 2. Abnormal EKG: Has remained free of symptomatic myocardial ischemia despite her challenging medical problems and marked anemia. In hospital they have not continued her statin therapy or aspirin because of her ongoing anemia and need for further chemotherapy. 3. Hypertensive heart disease (benign without heart failure): Less shortness of breath with improved hemoglobin and physical therapy. Current blood pressure is well-controlled on low-dose spirolactone alone. This agent is also useful to prevent atrial fibrillation. 4. Chronic venous insufficiency: Remains free of sign of right heart failure despite her pulmonary embolic events. I am somewhat impressed by the findings of her chest CT angiogram September 14, 2018 which showed no evidence of pulmonary embolism despite this study performed relatively recently in [place] showing multiple emboli? Regardless, she will require long-term oral anticoagulation for her atrial fibrillation. Our plan would be to arrange for a followup appointment in our office for clinic visit and EKG in 2 weeks. She has been encouraged to contact us promptly for recurrent palpitations.
[2018-09-18 23:00] VITALS: BP 135/62
[2018-09-19 04:00] VITALS: BP 109/60
[2018-09-19] MEDS: ACETAMINOPHEN TAB 650MG DOSE (2X325MG) PO PRN (04:35)
[2018-09-19 05:35] LABS: BASO % 0.6 % (0.0-1.0); EOS % 0.6 % (0.0-3.0); HEMOGLOBIN 9.3 g/dl (12.0-15.5); LYMPH % 29.1 % (24.0-44.0); MEAN CORPUSCULAR HEMOGLOBIN 30.7 pg (27.0-33.0); MEAN CORPUSCULAR HGB CONC 32.1 g/dl (32.0-36.5); MEAN CORPUSCULAR VOLUME 95.7 fl (80.0-96.0); MONO # 0.6 10^3/uL (0.0-0.8); MONO % 16.2 % (0.0-5.0); NEUTROPHILS # 1.9 10^3/uL (1.8-7.7); NEUTROPHILS % 52.7 % (36.0-66.0); PLATELET COUNT, AUTOMATED 248 10^3/uL (150-450); RED BLOOD COUNT 3.03 10^6/uL (4.00-5.40); WHITE BLOOD COUNT 3.6 10^3/uL (4.0-10.0)
[2018-09-19 05:53] LABS: BLOOD UREA NITROGEN 16 MG/DL (7-18); CALCIUM LEVEL 8.2 MG/DL (8.8-10.2); CARBON DIOXIDE LEVEL 24 MEQ/L (21-32); CHLORIDE LEVEL 111 MEQ/L (98-107); GLOMERULAR FILTRATION RATE > 60.0 (>45); GLUCOSE, FASTING 91 MG/DL (70-100); POTASSIUM SERUM 3.5 MEQ/L (3.5-5.1); SODIUM LEVEL 142 MEQ/L (136-145)
[2018-09-19 08:00] VITALS: BP 119/79
[2018-09-19] MEDS: BUDESONIDE EC 3 MG CAP (ENTOCORT EC) PO SCH (09:55)
[2018-09-19] MEDS: VITAMIN D 1,000 INTERNATIONAL UNITS TABLET PO SCH ×2 (09:55→21:00)
[2018-09-19] MEDS: LACTOBACILLUS ACIDOPHILUS CAP (BACID) PO SCH ×3 (09:55→21:00)
[2018-09-19] MEDS: FLECAINIDE 50MG TABLET PO SCH ×2 (09:56→21:07)
[2018-09-19] MEDS: ACETAMINOPHEN 500 MG TAB PO SCH ×2 (09:56→23:52)
[2018-09-19] MEDS: FOLIC ACID 1 MG TAB PO SCH (09:56)
[2018-09-19] MEDS: OMEPRAZOLE 20 MG CAP PO SCH (09:56)
[2018-09-19] MEDS: RIVAROXABAN 15 MG TAB (XARELTO) PO SCH ×2 (09:56→21:00)
[2018-09-19] MEDS: SPIRONOLACTONE 12.5MG PER 1/2 TABLET PO SCH (09:56)
[2018-09-19] MEDS ORDERED: POTASSIUM CHLORIDE 10 MEQ SR TABLET PO ONE (11:15)
[2018-09-19 12:00] VITALS: BP 108/59
[2018-09-19 16:00] VITALS: BP 115/67
[2018-09-19] MEDS: cefTRIAXone SOD 2 GM in D5W MINI-BAG PLUS 50 ML IV SCH (17:16)
[2018-09-19 18:07] LABS: CREATININE,RANDOM URINE 42.5 MG/DL; POTASSIUM RANDOM URINE 11.2 MEQ/L; TOTAL PROTEIN,RANDOM URINE 8.8 MG/DL (0.0-12.0)
--- NOTE | 2018-09-19 19:44 | IPNPDOC ---
Text Note Date of Service The patient was seen on 09/19/18. NOTE Patient seen and examined. No acute events overnight. improved weakness. working with PO/OT. Currently in sinus rhythm. Denies any chest pain, pressure or discomfort. Denies any fevers or chills. PHYSICAL EXAMINATION: GENERAL: Patient alert, comfortable, pale, in acute distress. HEENT: Normocephalic, atraumatic. PULMONARY: Bilaterally clear. ABDOMEN: Soft, nontender. EXTREMITIES: No clubbing, cyanosis, or edema. right perineal stage I lesion improved ASSESSMENT AND PLAN: This is a 63-year-old female patient with underlying medical history of hypertension, Crohn's disease, vitamin D deficiency, history of thrombophlebitis, dyslipidemia. 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 as well as one cycle of radiation, recently treated we 5FU and mitomycin, last treatment 08/18/2018 and last radiation 08/25/2018, complicated with radiation-induced dermatitis and skin breakdown in the peritoneal area. Furthermore, two weeks ago, patient was admitted to [facility] with pancytopenia, septic shock, possible pneumonia, was in intensive care unit (ICU) requiring pressors and transfusions. Subsequently, patient recovered during ICU stay. Hospital course was also complicated with an episode of atrial fibrillation with rapid ventricular response, resolved after treatment with beta blockers. Patient subsequently was also found to have small segmental pulmonary embolisms (PEs) and lower extremity saphenous vein superficial thrombus. Pt initially was not started on anticoagulation due to pancytopenia but given patient's counts have improved as of 09/10/2017, patient was started on Xarelto by patient's oncologist, but since discharge from [facility] for the past week, patient has been feeling weak with palpitations intermittently with lack of energy and general malaise. She presented to [facility] Emergency Room, found to be in atrial fibrillation with rapid ventricular response, given amiodarone, and request was made to admit the patient. 1. Atrial fibrillation with rapid ventricular response, unknown etiology. Thyroid-stimulating hormone (TSH) within normal limits. Telemetry, serial cardiac enzymes have been negative, given amiodarone, currently converted back to sinus. Continue Xarelto. Consulted cardiology. started on Flecainide as per cardio. Further recommendations per cardiology. 2. Generalized malaise, likely secondary to chemoradiation as well as underlying cancer with recently severe deconditioning due to septic shock. Acute rehabilitation has been consulted. PT/OT 3. Hypokalemia. Supplement electrolytes. Patient had poor oral intake. 4. Anemia, likely secondary to recent chemotherapy. Transfusion has been ordered. Consented for transfusion. We will monitor closely. 5. Radiation dermatitis. Wound care as ordered. 6. Deconditioning. Physical therapy (PT)/occupational therapy (OT). 7. Hypertension. Continue spironolactone. 8. Recent PE and superficial thrombophlebitis. 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 9. Crohn's disease. Continue budesonide. con't vitamins. Vit D, Folate, B12 level appreciated. Will need colonoscopy as per patient's radiation oncologist. 10. Hypertension. Aldactone has been ordered, continued. 11. Recently diagnosed squamous cell anorectal cancer, status post radiation and chemotherapy, last chemotherapy is 08/18/2018, last radiation 08/25/2018. D/W with patient's oncologist, Dr. James Torres, at [facility] at phone number [phone]. Case discussed with Dr. Coates, radiation oncologist, phone number [phone]. Agree with current management. 12. Peritoneal inflammation and dermatitis due to radiation, currently much improved. Discontinue Daly, able to voiding 13. Overactive bladder c/w home meds 14, hypokalemia. supplemented. Urine electrolytes. no evidence of GI loss. possible poor PO 15. Deep vein thrombosis (DVT) prophylaxis. Patient on therapeutic Xarelto started on 09/10/2017. DISPOSITION: Pending physical therapy (PT)/occupational therapy (OT), ARU VS,Irwin, I+O VS, Irwin, I+O Laboratory Tests 09/19/18 04:53 Red Blood Count 3.03 L, Mean Corpuscular Volume 95.7, Mean Corpuscular Hemoglobin 30.7, Mean Corpuscular Hemoglobin Concent 32.1, Red Cell Distribution Width 17.1 H, Neutrophils (%) (Auto) 52.7, Lymphocytes (%) (Auto) 29.1, Monocytes (%) (Auto) 16.2 H, Eosinophils (%) (Auto) 0.6, Basophils (%) (Auto) 0.6, Neutrophils # (Auto) 1.9, Lymphocytes # (Auto) 1.0 L, Monocytes # (Auto) 0.6, Eosinophils # (Auto) 0.0, Basophils # (Auto) 0.0, Calcium Level 8.2 L Vital Signs Date Time Temp Pulse Resp B/P (MAP) Pulse Ox O2 Delivery O2 Flow Rate FiO2 09/19/18 16:00 98.1 80 18 115/67 (83) 97 09/15/18 06:00 Room Air I&O- Last 24 Hours up to 6 AM 09/19/18 05:59 Intake Total 200 ml Output Total 1300 ml Balance -1100 ml JOSI MEI MD Sep 19, 2018 19:44
[2018-09-19 20:00] VITALS: BP 113/71
[2018-09-19] MEDS: CALCIUM CARBONATE 500 MG CHEW U/D PO SCH (21:00)
[2018-09-19] MEDS: MYRBETRIQ 50 MG PO SCH (21:00)
[2018-09-19] MEDS: VITAMIN B12 1000 MCG SL SCH (21:01)
[2018-09-20] VITALS: BP 111/68
[2018-09-20 04:00] VITALS: BP 125/72
[2018-09-20 05:57] LABS: BASO % 0.6 % (0.0-1.0); EOS % 0.3 % (0.0-3.0); HEMATOCRIT 29.3 % (36.0-47.0); HEMOGLOBIN 9.6 g/dl (12.0-15.5); LYMPH % 29.9 % (24.0-44.0); MEAN CORPUSCULAR HEMOGLOBIN 31.9 pg (27.0-33.0); MEAN CORPUSCULAR HGB CONC 32.8 g/dl (32.0-36.5); MEAN CORPUSCULAR VOLUME 97.3 fl (80.0-96.0); MONO # 0.6 10^3/uL (0.0-0.8); MONO % 16.6 % (0.0-5.0); NEUTROPHILS # 1.8 10^3/uL (1.8-7.7); NEUTROPHILS % 52.3 % (36.0-66.0); PLATELET COUNT, AUTOMATED 222 10^3/uL (150-450); RED BLOOD COUNT 3.01 10^6/uL (4.00-5.40); WHITE BLOOD COUNT 3.4 10^3/uL (4.0-10.0)
[2018-09-20 06:21] LABS: BLOOD UREA NITROGEN 14 MG/DL (7-18); CALCIUM LEVEL 8.1 MG/DL (8.8-10.2); CARBON DIOXIDE LEVEL 22 MEQ/L (21-32); CHLORIDE LEVEL 113 MEQ/L (98-107); CREATININE FOR GFR 0.67 MG/DL (0.55-1.30); GLOMERULAR FILTRATION RATE > 60.0 (>45); GLUCOSE, FASTING 85 MG/DL (70-100); MAGNESIUM LEVEL 1.9 MG/DL (1.8-2.4); POTASSIUM SERUM 3.8 MEQ/L (3.5-5.1); SODIUM LEVEL 141 MEQ/L (136-145)
[2018-09-20 07:58] VITALS: BP 119/73
[2018-09-20] MEDS: BUDESONIDE EC 3 MG CAP (ENTOCORT EC) PO SCH (09:00)
[2018-09-20] MEDS: SPIRONOLACTONE 12.5MG PER 1/2 TABLET PO SCH (09:01)
[2018-09-20] MEDS: OMEPRAZOLE 20 MG CAP PO SCH (09:01)
[2018-09-20] MEDS: VITAMIN D 1,000 INTERNATIONAL UNITS TABLET PO SCH ×2 (09:01→20:29)
[2018-09-20] MEDS: RIVAROXABAN 15 MG TAB (XARELTO) PO SCH ×2 (09:01→20:29)
[2018-09-20] MEDS: ACETAMINOPHEN 500 MG TAB PO SCH ×2 (09:01→20:29)
[2018-09-20] MEDS: LACTOBACILLUS ACIDOPHILUS CAP (BACID) PO SCH ×3 (09:01→20:30)
[2018-09-20] MEDS: FOLIC ACID 1 MG TAB PO SCH (09:01)
[2018-09-20] MEDS: FLECAINIDE 50MG TABLET PO SCH ×2 (09:01→20:29)
[2018-09-20 12:00] VITALS: BP 120/75
--- NOTE | 2018-09-20 13:30 | ECGEPIP ---
Stationary ECG Study 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
[2018-09-20] MEDS: cefTRIAXone SOD 2 GM in D5W MINI-BAG PLUS 50 ML IV SCH (16:04)
[2018-09-20] MEDS: ACETAMINOPHEN TAB 650MG DOSE (2X325MG) PO PRN (16:05)
[2018-09-20 16:10] VITALS: BP 128/63
--- NOTE | 2018-09-20 17:46 | IPNPDOC ---
Text Note Date of Service The patient was seen on 09/20/18. NOTE Patient seen and examined. No acute events overnight. improved weakness. Denies any chest pain, pressure or discomfort. Denies any fevers or chills. reported rectal pain PHYSICAL EXAMINATION: GENERAL: Patient alert, comfortable, pale, in acute distress. HEENT: Normocephalic, atraumatic. PULMONARY: Bilaterally clear. ABDOMEN: Soft, nontender. EXTREMITIES: No clubbing, cyanosis, or edema. ASSESSMENT AND PLAN: This is a 63-year-old female patient with underlying medical history of hypertension, Crohn's disease, vitamin D deficiency, history of thrombophlebitis, dyslipidemia. 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 Furthermore, two weeks ago, patient was admitted to [facility] with pancytopenia, septic shock, possible pneumonia, was in intensive care unit (ICU) requiring pressors and transfusions. Subsequently, patient recovered during ICU stay. Hospital course was also complicated with an episode of atrial fibrillation with rapid ventricular response, resolved after treatment with beta blockers. Patient subsequently was also found to have small segmental pulmonary embolisms (PEs) and lower extremity saphenous vein superficial thrombus. Pt initially was not started on anticoagulation due to pancytopenia but given patient's counts have improved as of 09/10/2017, patient was started on Xarelto by patient's oncologist, but since discharge from [facility] for the past week, patient has been feeling weak with palpitations intermittently with lack of energy and general malaise. She presented to [facility] Emergency Room, found to be in atrial fibrillation with rapid ventricular response, given amiodarone, and request was made to admit the patient. 1. Atrial fibrillation with rapid ventricular response, unknown etiology. Thyroid-stimulating hormone (TSH) within normal limits. Telemetry, serial cardiac enzymes have been negative, given amiodarone, currently converted back to sinus. Continue Xarelto. Consulted cardiology. started on Flecainide as per cardio. Further recommendations per cardiology. 2. Generalized malaise, likely secondary to chemoradiation as well as underlying cancer with recently severe deconditioning due to septic shock. Acute rehabilitation has been consulted. PT/OT 3. Hypokalemia. Supplement electrolytes. Patient had poor oral intake. 4. Anemia, likely secondary to recent chemotherapy. Transfusion 1U pRBC Consented for transfusion. We will monitor closely. 5. Radiation dermatitis. Wound care as ordered. 6. Deconditioning. Physical therapy (PT)/occupational therapy (OT). 7. Hypertension. Continue spironolactone. 8. Recent PE and superficial thrombophlebitis. 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 9. Crohn's disease. Continue budesonide. con't vitamins. Vit D, Folate, B12 level appreciated. Will need colonoscopy as per patient's radiation oncologist. 10. Hypertension. Aldactone has been ordered, continued. 11. Recently diagnosed squamous cell anorectal cancer, status post radiation and chemotherapy, last chemotherapy is 08/18/2018, last radiation 08/25/2018. D/W with patient's oncologist, Dr. James Torres, at [facility] at phone number [phone]. Case discussed with Dr. Coates, radiation oncologist, phone number [phone]. Agree with current management. 12. Peritoneal inflammation and dermatitis due to radiation, currently much improved. Discontinue Daly, able to voiding 13. Overactive bladder c/w home meds 14, hypokalemia. supplemented. Urine electrolytes. no evidence of GI loss. possible poor PO 15. Deep vein thrombosis (DVT) prophylaxis. Patient on therapeutic Xarelto started on 09/10/2017. DISPOSITION: Pending physical therapy (PT)/occupational therapy (OT), ARU VS,Irwin, I+O VS, Irwin, I+O Laboratory Tests 09/20/18 05:39 Red Blood Count 3.01 L, Mean Corpuscular Volume 97.3 H, Mean Corpuscular Hemoglobin 31.9, Mean Corpuscular Hemoglobin Concent 32.8, Red Cell Distribution Width 17.2 H, Neutrophils (%) (Auto) 52.3, Lymphocytes (%) (Auto) 29.9, Monocytes (%) (Auto) 16.6 H, Eosinophils (%) (Auto) 0.3, Basophils (%) (Auto) 0.6, Neutrophils # (Auto) 1.8, Lymphocytes # (Auto) 1.0 L, Monocytes # (Auto) 0.6, Eosinophils # (Auto) 0.0, Basophils # (Auto) 0.0, Calcium Level 8.1 L Vital Signs Date Time Temp Pulse Resp B/P (MAP) Pulse Ox O2 Delivery O2 Flow Rate FiO2 09/20/18 16:10 97.5 74 18 128/63 (84) 97 09/15/18 06:00 Room Air I&O- Last 24 Hours up to 6 AM 09/20/18 06:00 Intake Total 1130 ml Output Total 1400 ml Balance -270 ml JOSI MEI MD Sep 20, 2018 17:46
[2018-09-20] MEDS: MYRBETRIQ 50 MG PO SCH (20:30)
[2018-09-20] MEDS: VITAMIN B12 1000 MCG SL SCH (20:31)
[2018-09-20] MEDS: CALCIUM CARBONATE 500 MG CHEW U/D PO SCH (20:31)
[2018-09-20 22:00] VITALS: BP 126/74
[2018-09-21 02:00] VITALS: BP 103/64
[2018-09-21 06:00] VITALS: BP 119/64
[2018-09-21 06:56] LABS: BASO % 0.6 % (0.0-1.0); EOS % 0.6 % (0.0-3.0); HEMATOCRIT 29.7 % (36.0-47.0); HEMOGLOBIN 9.7 g/dl (12.0-15.5); LYMPH # 0.9 10^3/uL (1.5-4.5); LYMPH % 28.2 % (24.0-44.0); MEAN CORPUSCULAR HEMOGLOBIN 31.6 pg (27.0-33.0); MEAN CORPUSCULAR HGB CONC 32.7 g/dl (32.0-36.5); MEAN CORPUSCULAR VOLUME 96.7 fl (80.0-96.0); MONO # 0.5 10^3/uL (0.0-0.8); MONO % 16.3 % (0.0-5.0); NEUTROPHILS # 1.8 10^3/uL (1.8-7.7); NEUTROPHILS % 53.7 % (36.0-66.0); PLATELET COUNT, AUTOMATED 232 10^3/uL (150-450); RED BLOOD COUNT 3.07 10^6/uL (4.00-5.40); WHITE BLOOD COUNT 3.3 10^3/uL (4.0-10.0)
[2018-09-21 07:20] LABS: BLOOD UREA NITROGEN 13 MG/DL (7-18); CALCIUM LEVEL 8.4 MG/DL (8.8-10.2); CARBON DIOXIDE LEVEL 24 MEQ/L (21-32); CHLORIDE LEVEL 112 MEQ/L (98-107); CREATININE FOR GFR 0.67 MG/DL (0.55-1.30); GLOMERULAR FILTRATION RATE > 60.0 (>45); GLUCOSE, FASTING 88 MG/DL (70-100); POTASSIUM SERUM 3.5 MEQ/L (3.5-5.1); SODIUM LEVEL 142 MEQ/L (136-145)
[2018-09-21] MEDS ORDERED: POTASSIUM CHLORIDE 10 MEQ SR TABLET PO SCH (09:00)
[2018-09-21 09:29] LABS: C REACTIVE PROTEIN QUANTITATIV < 0.30 MG/DL (0.00-0.30)
[2018-09-21 10:00] VITALS: BP 116/78
[2018-09-21 10:04] LABS: ERYTHROCYTE SEDIMENTATION RATE 37 mm/hr (0-30)
[2018-09-21] MEDS: RIVAROXABAN 15 MG TAB (XARELTO) PO SCH ×2 (10:14→21:32)
[2018-09-21] MEDS: FLECAINIDE 50MG TABLET PO SCH ×2 (10:14→21:33)
[2018-09-21] MEDS: BUDESONIDE EC 3 MG CAP (ENTOCORT EC) PO SCH (10:14)
[2018-09-21] MEDS: SPIRONOLACTONE 12.5MG PER 1/2 TABLET PO SCH (10:14)
[2018-09-21] MEDS: LACTOBACILLUS ACIDOPHILUS CAP (BACID) PO SCH ×3 (10:15→21:33)
[2018-09-21] MEDS: ACETAMINOPHEN 500 MG TAB PO SCH ×2 (10:15→21:34)
[2018-09-21] MEDS: OMEPRAZOLE 20 MG CAP PO SCH (10:15)
[2018-09-21] MEDS: FOLIC ACID 1 MG TAB PO SCH (10:15)
[2018-09-21] MEDS: VITAMIN D 1,000 INTERNATIONAL UNITS TABLET PO SCH ×2 (10:15→21:32)
[2018-09-21] MEDS: LOPERAMIDE 2 MG CAP PO PRN ×2 (10:20→16:38)
[2018-09-21 14:00] VITALS: BP 111/70
[2018-09-21] MEDS: ACETAMINOPHEN TAB 650MG DOSE (2X325MG) PO PRN (15:34)
--- NOTE | 2018-09-21 15:49 | IPNPDOC ---
Text Note Date of Service The patient was seen on 09/21/18. NOTE Patient seen and examined. No acute events overnight. improved weakness. Denies any chest pain, pressure or discomfort. Denies any fevers or chills. reported rectal pain PHYSICAL EXAMINATION: GENERAL: Patient alert, comfortable, pale, in acute distress. HEENT: Normocephalic, atraumatic. PULMONARY: Bilaterally clear. ABDOMEN: Soft, nontender. mild rectal redness EXTREMITIES: No clubbing, cyanosis, or edema. ASSESSMENT AND PLAN: This is a 63-year-old female patient with underlying medical history of hypertension, Crohn's disease, vitamin D deficiency, history of thrombophlebitis, dyslipidemia. 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 ([facility] as well as one cycle of radiation, recently treated we 5FU and mitomycin, last treatment 08/18/2018 and last radiation 08/25/2018, complicated with radiation-induced dermatitis and skin breakdown in the peritoneal area. Furthermore, two weeks ago, patient was admitted to [facility] with pancytopenia, septic shock, possible pneumonia, was in intensive care unit (ICU) requiring pressors and transfusions. Subsequently, patient recovered during ICU stay. Hospital course was also complicated with an episode of atrial fibrillation with rapid ventricular response, resolved after treatment with beta blockers. Patient subsequently was also found to have small segmental pulmonary embolisms (PEs) and lower extremity saphenous vein superficial thrombus. Pt initially was not started on anticoagulation due to pancytopenia but given patient's counts have improved as of 09/10/2017, patient was started on Xarelto by patient's oncologist, but since discharge from [facility] for the past week, patient has been feeling weak with palpitations intermittently with lack of energy and general malaise. She presented to [facility] Emergency Room, found to be in atrial fibrillation with rapid ventricular response, given amiodarone, and request was made to admit the patient. 1. Atrial fibrillation with rapid ventricular response, unknown etiology. Thyroid-stimulating hormone (TSH) within normal limits. Telemetry, serial cardiac enzymes have been negative, given amiodarone, currently converted back to sinus. Continue Xarelto. Consulted cardiology. started on Flecainide as per cardio. Further recommendations per cardiology. 2. Generalized malaise, likely secondary to chemoradiation as well as underlying cancer with recently severe deconditioning due to septic shock. Acute rehabilitation has been consulted. PT/OT 3. Hypokalemia. Supplement electrolytes. Patient had poor oral intake. 4. Anemia, likely secondary to recent chemotherapy. Transfusion 1U pRBC Consented for transfusion. We will monitor closely. 5. Radiation dermatitis. Wound care as ordered. 6. Deconditioning. Physical therapy (PT)/occupational therapy (OT). 7. Hypertension. Continue spironolactone. 8. Recent PE and superficial thrombophlebitis. 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 9. Crohn's disease. Continue budesonide. con't vitamins. Vit D, Folate, B12 level appreciated. Will need colonoscopy as per patient's radiation oncologist. 10. Hypertension. Aldactone has been ordered, continued. 11. Recently diagnosed squamous cell anorectal cancer, status post radiation and chemotherapy, last chemotherapy is 08/18/2018, last radiation 08/25/2018. D/W with patient's oncologist, Dr. James Torres, at [facility] at phone number [phone]. Case discussed with Dr. Coates, radiation oncologist, phone number [phone]. Agree with current management. 12. Peritoneal inflammation and dermatitis due to radiation, currently much improved. Discontinue Daly, able to voiding 13. Overactive bladder c/w home meds 14, hypokalemia. supplemented. Urine electrolytes. no evidence of GI loss. possible poor PO 15. Deep vein thrombosis (DVT) prophylaxis. Patient on therapeutic Xarelto started on 09/10/2017. DISPOSITION: Pending physical therapy (PT)/occupational therapy (OT), ARU VS,[place], I+O VS, [place], I+O Laboratory Tests 09/21/18 06:26 Red Blood Count 3.07 L, Mean Corpuscular Volume 96.7 H, Mean Corpuscular Hemoglobin 31.6, Mean Corpuscular Hemoglobin Concent 32.7, Red Cell Distribution Width 17.2 H, Neutrophils (%) (Auto) 53.7, Lymphocytes (%) (Auto) 28.2, Monocytes (%) (Auto) 16.3 H, Eosinophils (%) (Auto) 0.6, Basophils (%) (Auto) 0.6, Neutrophils # (Auto) 1.8, Lymphocytes # (Auto) 0.9 L, Monocytes # (Auto) 0.5, Eosinophils # (Auto) 0.0, Basophils # (Auto) 0.0, Calcium Level 8.4 L Vital Signs Date Time Temp Pulse Resp B/P (MAP) Pulse Ox O2 Delivery O2 Flow Rate FiO2 09/21/18 14:00 97.7 80 20 111/70 (84) 98 09/15/18 06:00 Room Air I&O- Last 24 Hours up to 6 AM 09/21/18 05:59 Intake Total 660 ml Output Total 800 ml Balance -140 ml JOSI MEI MD Sep 21, 2018 15:49
[2018-09-21] MEDS: cefTRIAXone SOD 2 GM in D5W MINI-BAG PLUS 50 ML IV SCH (16:37)
[2018-09-21] MEDS: MYRBETRIQ 50 MG PO SCH (21:32)
[2018-09-21] MEDS: VITAMIN B12 1000 MCG SL SCH (21:35)
[2018-09-21] MEDS: CALCIUM CARBONATE 500 MG CHEW U/D PO SCH (21:36)
[2018-09-21 22:00] VITALS: BP 119/64
[2018-09-22 06:00] VITALS: BP 116/68
[2018-09-22 06:25] LABS: BASO % 0.5 % (0.0-1.0); EOS % 0.5 % (0.0-3.0); HEMOGLOBIN 10.4 g/dl (12.0-15.5); LYMPH # 1.6 10^3/uL (1.5-4.5); LYMPH % 37.2 % (24.0-44.0); MEAN CORPUSCULAR HEMOGLOBIN 30.9 pg (27.0-33.0); MEAN CORPUSCULAR HGB CONC 32.5 g/dl (32.0-36.5); MONO # 0.6 10^3/uL (0.0-0.8); MONO % 14.6 % (0.0-5.0); NEUTROPHILS % 46.5 % (36.0-66.0); PLATELET COUNT, AUTOMATED 264 10^3/uL (150-450); RED BLOOD COUNT 3.37 10^6/uL (4.00-5.40); WHITE BLOOD COUNT 4.3 10^3/uL (4.0-10.0)
[2018-09-22 06:43] LABS: BLOOD UREA NITROGEN 13 MG/DL (7-18); CALCIUM LEVEL 8.7 MG/DL (8.8-10.2); CARBON DIOXIDE LEVEL 23 MEQ/L (21-32); CHLORIDE LEVEL 111 MEQ/L (98-107); CREATININE FOR GFR 0.78 MG/DL (0.55-1.30); GLOMERULAR FILTRATION RATE > 60.0 (>45); GLUCOSE, FASTING 95 MG/DL (70-100); MAGNESIUM LEVEL 2.7 MG/DL (1.8-2.4); POTASSIUM SERUM 3.4 MEQ/L (3.5-5.1); SODIUM LEVEL 142 MEQ/L (136-145)
[2018-09-22] MEDS: VITAMIN D 1,000 INTERNATIONAL UNITS TABLET PO SCH ×2 (08:11→21:18)
[2018-09-22] MEDS: POTASSIUM CHLORIDE 10 MEQ SR TABLET PO SCH (08:11)
[2018-09-22] MEDS: LACTOBACILLUS ACIDOPHILUS CAP (BACID) PO SCH ×3 (08:11→21:18)
[2018-09-22] MEDS: BUDESONIDE EC 3 MG CAP (ENTOCORT EC) PO SCH (08:11)
[2018-09-22] MEDS: RIVAROXABAN 15 MG TAB (XARELTO) PO SCH ×2 (08:12→21:18)
[2018-09-22] MEDS: FOLIC ACID 1 MG TAB PO SCH (08:12)
[2018-09-22] MEDS: ACETAMINOPHEN 500 MG TAB PO SCH ×2 (08:12→21:19)
[2018-09-22] MEDS: SPIRONOLACTONE 12.5MG PER 1/2 TABLET PO SCH (08:12)
[2018-09-22] MEDS: FLECAINIDE 50MG TABLET PO SCH ×2 (08:12→21:18)
[2018-09-22] MEDS: OMEPRAZOLE 20 MG CAP PO SCH (08:12)
[2018-09-22] MEDS: LOPERAMIDE 2 MG CAP PO PRN (08:25)
[2018-09-22] MEDS ORDERED: METAMUCIL (PSYLLIUM) PACKET PO SCH (09:00)
[2018-09-22] MEDS: METAMUCIL (PSYLLIUM) PACKET PO SCH (11:59)
[2018-09-22 12:02] VITALS: BP 118/72
[2018-09-22 14:00] VITALS: BP 113/78
[2018-09-22] MEDS: cefTRIAXone SOD 2 GM in D5W MINI-BAG PLUS 50 ML IV SCH (15:15)
--- NOTE | 2018-09-22 19:45 | IPNPDOC ---
Text Note Date of Service The patient was seen on 09/22/18. NOTE Patient seen and examined. No acute events overnight. improved weakness. Denies any chest pain, pressure or discomfort. Denies any fevers or chills. r PHYSICAL EXAMINATION: GENERAL: Patient alert, comfortable, pale, in acute distress. HEENT: Normocephalic, atraumatic. PULMONARY: Bilaterally clear. ABDOMEN: Soft, nontender. mild rectal redness EXTREMITIES: No clubbing, cyanosis, or edema. ASSESSMENT AND PLAN: This is a 63-year-old female patient with underlying medical history of hypertension, Crohn's disease, vitamin D deficiency, history of thrombophlebitis, dyslipidemia. Patient was diagnosed with colorectal cancer, squamous cell carcinoma, rectoanal cancer in March 2018, status post two cycles of chemotherapy at [facility] ([facility] as well as one cycle of radiation, recently treated we 5FU and mitomycin, last treatment 08/18/2018 and last radiation 08/25/2018, complicated with radiation-induced dermatitis and skin breakdown in the peritoneal area. Furthermore, two weeks ago, patient was admitted to [facility] with pancytopenia, septic shock, possible pneumonia, was in intensive care unit (ICU) requiring pressors and transfusions. Subsequently, patient recovered during ICU stay. Hospital course was also complicated with an episode of atrial fibrillation with rapid ventricular response, resolved after treatment with beta blockers. Patient subsequently was also found to have small segmental pulmonary embolisms (PEs) and lower extremity saphenous vein superficial thrombus. Pt initially was not started on anticoagulation due to pancytopenia but given patient's counts have improved as of 09/10/2017, patient was started on Xarelto by patient's oncologist, but since discharge from [facility] for the past week, patient has been feeling weak with palpitations intermittently with lack of energy and general malaise. She presented to [facility] Emergency Room, found to be in atrial fibrillation with rapid ventricular response, given amiodarone, and request was made to admit the patient. 1. Atrial fibrillation with rapid ventricular response, unknown etiology. Thyroid-stimulating hormone (TSH) within normal limits. Telemetry, serial cardiac enzymes have been negative, given amiodarone, currently converted back to sinus. Continue Xarelto. Consulted cardiology. started on Flecainide as per cardio. Further recommendations per cardiology. 2. Generalized malaise, likely secondary to chemoradiation as well as underlying cancer with recently severe deconditioning due to septic shock. Acute rehabilitation has been consulted. PT/OT 3. Hypokalemia. Supplement electrolytes. Patient had poor oral intake. 4. Anemia, likely secondary to recent chemotherapy. Transfusion 1U pRBC Consented for transfusion. We will monitor closely. 5. Radiation dermatitis. Wound care as ordered. 6. Deconditioning. Physical therapy (PT)/occupational therapy (OT). 7. Hypertension. Continue spironolactone. 8. Recent PE and superficial thrombophlebitis. Patient on Xarelto started 09/10, at current 15mg BID dose for 21 days then reduced to 20mg Po daily as per patient's datastage developer. 9. Crohn's disease. Continue budesonide, Metamucil. con't vitamins. Vit D, Folate, B12 level appreciated. Will need colonoscopy as per patient's radiation oncologist. 10. Hypertension. Aldactone has been ordered, continued. 11. Recently diagnosed squamous cell anorectal cancer, status post radiation and chemotherapy, last chemotherapy is 08/18/2018, last radiation 08/25/2018. D/W with patient's oncologist, Dr. James Torres, at [facility] at phone number [phone]. Case discussed with Dr. Coates, radiation oncologist, phone number [phone]. Agree with current management. 12. Peritoneal inflammation and dermatitis due to radiation, currently much improved. Discontinue Daly, able to voiding 13. Overactive bladder c/w home meds 14, hypokalemia. supplemented. Urine electrolytes. possible GI loss. possible poor PO 15. Deep vein thrombosis (DVT) prophylaxis. Patient on therapeutic Xarelto started on 09/10/2017. DISPOSITION: Pending physical therapy (PT)/occupational therapy (OT), ARU possible VS,[place], I+O VS, [place], I+O Laboratory Tests 09/22/18 06:05 Red Blood Count 3.37 L, Mean Corpuscular Volume 95.0, Mean Corpuscular Hemoglobin 30.9, Mean Corpuscular Hemoglobin Concent 32.5, Red Cell Distribution Width 17.3 H, Neutrophils (%) (Auto) 46.5, Lymphocytes (%) (Auto) 37.2, Monocytes (%) (Auto) 14.6 H, Eosinophils (%) (Auto) 0.5, Basophils (%) (Auto) 0.5, Neutrophils # (Auto) 2.0, Lymphocytes # (Auto) 1.6, Monocytes # (Auto) 0.6, Eosinophils # (Auto) 0.0, Basophils # (Auto) 0.0, Calcium Level 8.7 L Vital Signs Date Time Temp Pulse Resp B/P (MAP) Pulse Ox O2 Delivery O2 Flow Rate FiO2 09/22/18 14:00 98.6 80 22 113/78 (48) 98 I&O- Last 24 Hours up to 6 AM 09/22/18 06:00 Intake Total 1420 ml Output Total 0 ml Balance 1420 ml JOSI MEI MD Sep 22, 2018 19:45
[2018-09-22] MEDS: CALCIUM CARBONATE 500 MG CHEW U/D PO SCH (21:18)
[2018-09-22] MEDS: VITAMIN B12 1000 MCG SL SCH (21:19)
[2018-09-22] MEDS: MYRBETRIQ 50 MG PO SCH (21:19)
[2018-09-22 22:00] VITALS: BP 140/86
[2018-09-23 02:00] VITALS: BP 138/82
[2018-09-23 06:00] VITALS: BP 113/71
[2018-09-23 06:02] LABS: HEMATOCRIT 29.8 % (36.0-47.0); HEMOGLOBIN 9.7 g/dl (12.0-15.5); MEAN CORPUSCULAR HEMOGLOBIN 31.4 pg (27.0-33.0); MEAN CORPUSCULAR HGB CONC 32.6 g/dl (32.0-36.5); MEAN CORPUSCULAR VOLUME 96.4 fl (80.0-96.0); PLATELET COUNT, AUTOMATED 217 10^3/uL (150-450); RED BLOOD COUNT 3.09 10^6/uL (4.00-5.40); WHITE BLOOD COUNT 3.7 10^3/uL (4.0-10.0)
[2018-09-23 06:36] LABS: BLOOD UREA NITROGEN 13 MG/DL (7-18); CALCIUM LEVEL 8.5 MG/DL (8.8-10.2); CARBON DIOXIDE LEVEL 26 MEQ/L (21-32); CHLORIDE LEVEL 110 MEQ/L (98-107); GLOMERULAR FILTRATION RATE > 60.0 (>45); GLUCOSE, FASTING 86 MG/DL (70-100); MAGNESIUM LEVEL 1.9 MG/DL (1.8-2.4); POTASSIUM SERUM 4.1 MEQ/L (3.5-5.1); SODIUM LEVEL 141 MEQ/L (136-145)
[2018-09-23] MEDS: SPIRONOLACTONE 12.5MG PER 1/2 TABLET PO SCH (09:58)
[2018-09-23] MEDS: OMEPRAZOLE 20 MG CAP PO SCH (09:58)
[2018-09-23] MEDS: LACTOBACILLUS ACIDOPHILUS CAP (BACID) PO SCH (09:59)
[2018-09-23] MEDS: FLECAINIDE 50MG TABLET PO SCH (09:59)
[2018-09-23] MEDS: BUDESONIDE EC 3 MG CAP (ENTOCORT EC) PO SCH (09:59)
[2018-09-23] MEDS: FOLIC ACID 1 MG TAB PO SCH (09:59)
[2018-09-23] MEDS: VITAMIN D 1,000 INTERNATIONAL UNITS TABLET PO SCH (09:59)
[2018-09-23] MEDS: ACETAMINOPHEN 500 MG TAB PO SCH (09:59)
[2018-09-23] MEDS: RIVAROXABAN 15 MG TAB (XARELTO) PO SCH (09:59)
[2018-09-23] MEDS: POTASSIUM CHLORIDE 10 MEQ SR TABLET PO SCH (10:00)
[2018-09-23] MEDS: METAMUCIL (PSYLLIUM) PACKET PO SCH (10:00)
[2018-09-23] MEDS ORDERED: FLEC25TA PO (10:45)
[2018-09-23] MEDS ORDERED: K-TA1TAB PO (10:45)
[2018-09-23] MEDS ORDERED: META1POW PO (10:45)
[2018-09-23] MEDS ORDERED: XARE20TA PO (10:45)
--- NOTE | 2018-09-23 19:27 | DSES ---
DATE OF ADMISSION: 09/14/2018 DATE OF DISCHARGE: 09/23/2018 PRIMARY CARE PROVIDER: Dr. Vishal Ruiz CEMENT TILE MAKER: Dr. Lopez ONCOLOGIST: Dr. James Torres RADIATION ONCOLOGIST: Dr. Coates FINAL DIAGNOSES: Atrial fibrillation with rapid ventricular response. Generalized malaise Deconditioning Gait instability. Hypokalemia. Anemia secondary to chemotherapy. Radiation dermatitis. Hypertension. Recent pulmonary embolism (PE) with superficial thrombophlebitis. Crohn's disease. Recently diagnosed and treated squamous cell anorectal cancer, status post radiation and chemotherapy. Peritoneal inflammation due to radiation. Overactive bladder. HISTORY OF PRESENT ILLNESS: This is a 63-year-old female patient with underlying medical history of squamous cell carcinoma of anorectal diagnosed June 2018, treated with radiation and chemo at [facility], [place] - on Xarelto, recently diagnosed, hypertension, paroxysmal atrial fibrillation, urinary retention requiring Daly catheter due to radiation peritoneal inflammation, Crohn's disease, gastroesophageal reflux disease (GERD). The patient was diagnosed with above squamous cell carcinoma June 2018 for which the patient was receiving radiation and chemotherapy in July and August. Following her treatment, she developed septic shock, pancytopenia with pleural effusion, lower extremity edema requiring intensive care unit (ICU) stay at [facility]. The patient was discharged. During ICU course, patient was found to be in atrial fibrillation with rapid ventricular response and diagnosed with segmental PE, as well as superficial thrombophlebitis. The patient was later on placed on Xarelto by patient's oncologist. Following discharge, the patient had had persistent weakness and palpitations, called Dr. Lopez's office for a followup appointment but instead the patient presented to the emergency department (ED). In the ED, the patient was found to be atrial fibrillation with rapid ventricular response. Garbage Collector Supervisor dairy feed sales consultant, Dr. Lopez, was consulted. Patient was given a dose of amiodarone, spontaneously converted to sinus. HOSPITAL COURSE: The patient was admitted to the hospital, telemetry monitoring, serial cardiac enzymes were done, thyroid profile was done, echocardiogram was done. Dr. Lopez was consulted. Patient was started on flecainide by Dr. Lopez. Hospital course was also complicated with anemia due to chemotherapy regimen, requiring transfusion. Patient's hemoglobin and hematocrit remained relatively stable. Physical therapy (PT), occupational therapy (OT), acute rehabilitation (rehab) was consulted given deconditioning, gait instability. Patient tolerated physical therapy but unfortunately insurance did not approve acute rehab for further care. Metamucil was also added due to diarrhea but patient has no elevation in inflammatory markers. Patient currently is tolerating oral, is tolerating physical therapy as well. Treated for urinary tract infection (UTI) with Rocephin. Current comfortable. Daly catheter was discontinued and patient was able to void, tolerating oral, tolerating physical therapy, ready to be discharged for further care as an outpatient. VITAL SIGNS: Temperature 96.4, pulse 72, respirations 20, blood pressure 113/71, pulse oximetry 96% on room air. GENERAL: Patient frail, pale, in no acute distress. HEENT: Normocephalic, atraumatic. PULMONARY: Bilaterally clear. CARDIAC: Regular, S1, S2. ABDOMEN: Soft, nontender. EXTREMITIES: No clubbing, cyanosis, or edema. LABORATORY: WBC 3.7, hemoglobin and hematocrit 9.7 over 29.8, platelets 217. Chemistry: Sodium 141, potassium 4.1, chloride 110, bicarbonate 26, BUN 13, creatinine 0.7. DISCHARGE MEDICATIONS: - flecainide 50 mg by mouth twice a day - potassium chloride 20 mEq by mouth daily for 10 days - Metamucil one packet by mouth daily for 14 days - Xarelto 20 mg by mouth daily to start on November 02, 2018 after finishing 15 mg by mouth twice a day dose. - acetaminophen 1000 mg by mouth twice a day - budesonide 9 mg by mouth daily - calcium carbonate 500 mg by mouth nightly - vitamin D 1000 units by mouth twice a day - vitamin B12 1000 mcg by mouth sublingual nightly - folic acid 500 mcg by mouth daily - lidocaine prilocaine cream 2.5-2.5% topical as directed - Imodium 2 mg by mouth as needed - magnesium oxide 250 mg by mouth daily - Myrbetriq 50 mg by mouth nightly - omeprazole 20 mg by mouth daily - Xarelto 15 mg by mouth twice a day until November 01, 2018, then can resume 20 mg by mouth once a day - spironolactone 12.5 mg by mouth daily DISCHARGE INSTRUCTIONS: Please see primary care provider in 7 days. Followup basic metabolic panel, CBC in 7 days with primary. Please see moth proofer in 10 days, Dr. Lopez. Please see oncologist and radiation oncologist; patient already has an appointment. Return if symptoms worsen. Fall precautions.
== END 2018-09-23 13:55 | disposition home health service (06) | DRG 201 ==
LOC: EDBD 17:38 → M ED 17:38 → M ED INP 23:25 → M PCU 09-15 14:25 → M MS5PR 09-20 15:35
PROVIDERS: ADMIT Hospitalist; ATTEND Hospitalist
PROC: 30233N1 Transfusion of Nonautologous Red Blood Cells into Peripheral Vein, Percutaneous Approach (ICD-10-PCS; principal; 2018-09-15)
DX: I48.0 Paroxysmal atrial fibrillation (principal); C21.0 Malignant neoplasm of anus, unspecified; K50.90 Crohn's disease, unspecified, without complications; N32.81 Overactive bladder; E55.9 Vitamin D deficiency, unspecified; I11.9 Hypertensive heart disease without heart failure; D64.81 Anemia due to antineoplastic chemotherapy; L59.8 Other specified disorders of the skin and subcutaneous tissue related to radiation; E87.6 Hypokalemia; R26.89 Other abnormalities of gait and mobility; Z86.711 Personal history of pulmonary embolism; K21.9 Gastro-esophageal reflux disease without esophagitis; Z79.899 Other long term (current) drug therapy; R33.9 Retention of urine, unspecified; Z88.5 Allergy status to narcotic agent; Z88.2 Allergy status to sulfonamides

== ENCOUNTER → 2018-09-29 | Outpatient (REF) | payer BC ==
[~2018-09-29] MED LIST changes: +B-12100011 SL; +BUDE3CAP PO; +CALC500C16 PO; +FLEC25TA PO; +IMOD2TAB16 PO; +K-TA1TAB PO; +LIDO2.5C15 TOP; +META1POW PO; +VITA100066 PO; +XARE15TA PO; +XARE20TA PO
== END ==
LOC: M SMT 17:24
PROVIDERS: ATTEND Nurse Practitioner Family
DX: N39.0 Urinary tract infection, site not specified (principal)

== ENCOUNTER → 2018-10-03 | Outpatient (REF) | payer BC | LOC: M LAB REF 17:16 | PROVIDERS: ATTEND Obstetrics & Gynecology | DX: R23.4 Changes in skin texture (principal) ==

== ENCOUNTER → 2018-10-13 | Outpatient (REF) | payer BC ==
[~2018-10-13] MED LIST changes: +VITA100018 PO; -VITA100072 PO
[2018-10-13 16:32] LABS: BASO % 0.3 % (0.0-1.0); EOS # 0.1 10^3/uL (0.0-0.50); EOS % 1.2 % (0.0-3.0); HEMATOCRIT 34.7 % (36.0-47.0); HEMOGLOBIN 10.8 g/dl (12.0-15.5); LYMPH # 0.8 10^3/uL (1.5-4.5); LYMPH % 11.9 % (24.0-44.0); MEAN CORPUSCULAR HEMOGLOBIN 31.6 pg (27.0-33.0); MEAN CORPUSCULAR HGB CONC 31.1 g/dl (32.0-36.5); MEAN CORPUSCULAR VOLUME 101.5 fl (80.0-96.0); MONO # 0.3 10^3/uL (0.0-0.8); MONO % 5.1 % (0.0-5.0); NEUTROPHILS # 5.3 10^3/uL (1.8-7.7); NEUTROPHILS % 81.3 % (36.0-66.0); PLATELET COUNT, AUTOMATED 218 10^3/uL (150-450); RED BLOOD COUNT 3.42 10^6/uL (4.00-5.40); WHITE BLOOD COUNT 6.5 10^3/uL (4.0-10.0)
[2018-10-13 16:58] LABS: ALBUMIN 3.7 GM/DL (3.2-5.2); ALT/SGPT 15 U/L (12-78); BILIRUBIN,TOTAL 0.4 MG/DL (0.2-1.0); BLOOD UREA NITROGEN 19 MG/DL (7-18); CARBON DIOXIDE LEVEL 26 MEQ/L (21-32); CHLORIDE LEVEL 109 MEQ/L (98-107); CREATININE FOR GFR 0.99 MG/DL (0.55-1.30); GLOMERULAR FILTRATION RATE > 60.0 (>45); GLUCOSE, FASTING 124 MG/DL (70-100); IRON (FE) 51 UG/DL (50-170); POTASSIUM SERUM 3.9 MEQ/L (3.5-5.1); SODIUM LEVEL 141 MEQ/L (136-145); TOTAL PROTEIN 6.5 GM/DL (6.4-8.2)
== END ==
LOC: M SHH 16:02
PROVIDERS: ATTEND Family Medicine
DX: D64.9 Anemia, unspecified (principal); I10 Essential (primary) hypertension

== ENCOUNTER → 2018-11-18 | Outpatient (REF) | payer BC ==
[2018-11-18 14:37] LABS: APPEARANCE, URINE CLEAR (CLEAR); BACTERIA, URINE AUTO 1+ (NEGATIVE); BILIRUBIN, URINE AUTO NEGATIVE (NEGATIVE); BLOOD, URINE BLOOD NEGATIVE (NEGATIVE); COLOR, URINE YELLOW (YELLOW); GLUCOSE, URINE (UA) AUTO NEGATIVE (NEGATIVE); KETONE, URINE AUTO NEGATIVE (NEGATIVE); LEUKOCYTE ESTERASE, URINE AUTO NEGATIVE (NEGATIVE); NITRITE, URINE AUTO NEGATIVE (NEGATIVE); PROTEIN, URINE AUTO NEGATIVE (NEGATIVE); RBC, URINE AUTO 0 /HPF (0-3); SPECIFIC GRAVITY URINE AUTO 1.013 (1.002-1.035); SQUAMOUS EPITHELIAL CELL UR AU 0 /HPF (0-6); UROBILINOGEN, URINE AUTO 0.2 mg/dL (0.0-2.0); WBC, URINE AUTO 3 /HPF (0-3)
== END ==
LOC: M SMT 14:13
PROVIDERS: ATTEND Nurse Practitioner Family
DX: N39.0 Urinary tract infection, site not specified (principal)

== ENCOUNTER → 2018-12-09 | Outpatient (REF) | payer BC ==
[2018-12-09 17:07] LABS: ALBUMIN 3.6 GM/DL (3.2-5.2); ALT/SGPT 15 U/L (12-78); BILIRUBIN,TOTAL 0.3 MG/DL (0.2-1.0); BLOOD UREA NITROGEN 15 MG/DL (7-18); CALCIUM LEVEL 9.3 MG/DL (8.8-10.2); CARBON DIOXIDE LEVEL 27 MEQ/L (21-32); CHLORIDE LEVEL 109 MEQ/L (98-107); CREATININE FOR GFR 0.73 MG/DL (0.55-1.30); GLOMERULAR FILTRATION RATE > 60.0 (>45); GLUCOSE, FASTING 76 MG/DL (70-100); IRON (FE) 70 UG/DL (50-170); POTASSIUM SERUM 4.2 MEQ/L (3.5-5.1); SODIUM LEVEL 144 MEQ/L (136-145); TOTAL PROTEIN 6.3 GM/DL (6.4-8.2)
[2018-12-09 17:09] LABS: FOLATE 18.3 NG/ML (>5.4); VITAMIN B12 LEVEL 859 PG/ML (247-911)
[2018-12-09 17:46] LABS: BASO % 0.7 % (0.0-1.0); EOS # 0.1 10^3/uL (0.0-0.50); EOS % 1.2 % (0.0-3.0); HEMATOCRIT 37.1 % (36.0-47.0); HEMOGLOBIN 11.8 g/dl (12.0-15.5); LYMPH # 1.4 10^3/uL (1.5-4.5); LYMPH % 32.3 % (24.0-44.0); MEAN CORPUSCULAR HEMOGLOBIN 32.2 pg (27.0-33.0); MEAN CORPUSCULAR HGB CONC 31.8 g/dl (32.0-36.5); MEAN CORPUSCULAR VOLUME 101.1 fl (80.0-96.0); MONO # 0.5 10^3/uL (0.0-0.8); MONO % 11.8 % (0.0-5.0); NEUTROPHILS # 2.3 10^3/uL (1.8-7.7); NEUTROPHILS % 53.8 % (36.0-66.0); PLATELET COUNT, AUTOMATED 218 10^3/uL (150-450); RED BLOOD COUNT 3.67 10^6/uL (4.00-5.40); WHITE BLOOD COUNT 4.2 10^3/uL (4.0-10.0)
== END ==
LOC: M SFHCCLAY 11:44
PROVIDERS: ATTEND Family Medicine
DX: I10 Essential (primary) hypertension (principal); D64.9 Anemia, unspecified

== ENCOUNTER 2019-01-01 11:30 | Outpatient (RCR) | payer BC | END 2019-01-04 | LOC: M PT 11:30 | PROVIDERS: ATTEND Specialist | DX: R15.2 Fecal urgency (principal) ==

== ENCOUNTER 2019-01-27 11:31 | Outpatient (RCR) | payer BC ==
[~2019-01-27 11:31] MED LIST changes: -OMEP20CA3 PO; +OMEP20CA4 PO
== END 2019-02-04 ==
LOC: M PT 11:31
PROVIDERS: ATTEND Specialist
DX: Z51.89 Encounter for other specified aftercare (principal); R15.2 Fecal urgency; N94.819 Vulvodynia, unspecified

== ENCOUNTER 2019-02-25 11:15 | Outpatient (RCR) | payer BC | END 2019-03-07 | LOC: M PT 11:15 | PROVIDERS: ATTEND Specialist | DX: Z51.89 Encounter for other specified aftercare (principal); R15.2 Fecal urgency ==

== ENCOUNTER → 2019-03-20 | Outpatient (REF) | payer BC ==
[2019-03-20 16:50] LABS: BLOOD UREA NITROGEN 20 MG/DL (7-18); CALCIUM LEVEL 9.4 MG/DL (8.8-10.2); CARBON DIOXIDE LEVEL 25 MEQ/L (21-32); CHLORIDE LEVEL 110 MEQ/L (98-107); CHOLESTEROL LEVEL 279 MG/DL (<200); CHOLESTEROL RISK RATIO 5.936 (<5); CREATININE FOR GFR 0.84 MG/DL (0.55-1.30); GLOMERULAR FILTRATION RATE > 60.0 (>45); GLUCOSE, FASTING 88 MG/DL (70-100); HDL CHOLESTEROL 47 MG/DL (>40); LDL CHOLESTEROL 199 MG/DL (<100); MAGNESIUM LEVEL 2.4 MG/DL (1.8-2.4); NON-HDL-C 232 MG/DL; POTASSIUM SERUM 4.5 MEQ/L (3.5-5.1); SODIUM LEVEL 144 MEQ/L (136-145); THYROXINE (T4) 8.3 UG/DL (4.5-12.0); TRIGLYCERIDES LEVEL 165 MG/DL (<150)
== END ==
LOC: M SFHCCLAY 10:50
PROVIDERS: ATTEND Family Medicine
DX: I10 Essential (primary) hypertension (principal); E78.2 Mixed hyperlipidemia; E55.9 Vitamin D deficiency, unspecified; R53.82 Chronic fatigue, unspecified

== ENCOUNTER 2019-04-03 11:00 | Outpatient (RCR) | payer BC | END 2019-04-06 | LOC: M PT 11:00 | PROVIDERS: ATTEND Specialist | DX: Z51.89 Encounter for other specified aftercare (principal); R10.2 Pelvic and perineal pain; R15.2 Fecal urgency ==

== ENCOUNTER 2019-05-06 13:00 | Outpatient (RCR) | payer MEDICARE | END 2019-05-07 | LOC: M PT 13:00 | PROVIDERS: ATTEND Specialist | DX: Z51.89 Encounter for other specified aftercare (principal); R15.2 Fecal urgency; R10.2 Pelvic and perineal pain ==

== ENCOUNTER 2019-06-02 09:00 | Outpatient (RCR) | payer MEDICARE | END 2019-06-06 | LOC: M PT 09:00 | PROVIDERS: ATTEND Specialist | DX: Z51.89 Encounter for other specified aftercare (principal); R15.2 Fecal urgency; R10.2 Pelvic and perineal pain ==

== ENCOUNTER → 2019-06-16 | Outpatient (REF) | payer MEDICARE ==
[~2019-06-16] MED LIST changes: +OMEP-172 PO; -OMEP20CA4 PO
[2019-06-16 16:32] LABS: BASO % 0.8 % (0.0-1.0); EOS # 0.1 10^3/uL (0.0-0.5); EOS % 1.3 % (0.0-3.0); HEMOGLOBIN 11.6 g/dl (12.0-15.5); LYMPH % 24.6 % (24.0-44.0); MEAN CORPUSCULAR HGB CONC 31.4 g/dl (32.0-36.5); MEAN CORPUSCULAR VOLUME 98.9 fl (80.0-96.0); MONO # 0.5 10^3/uL (0.0-0.8); MONO % 12.2 % (0.0-5.0); NEUTROPHILS # 2.4 10^3/uL (1.5-8.5); NEUTROPHILS % 61.1 % (36.0-66.0); PLATELET COUNT, AUTOMATED 222 10^3/uL (150-450); RED BLOOD COUNT 3.74 10^6/uL (4.00-5.40); WHITE BLOOD COUNT 3.9 10^3/uL (4.0-10.0)
[2019-06-16 16:42] LABS: INR 1.27; PROTHROMBIN TIME 15.6 SECONDS (11.8-14.0)
[2019-06-16 16:43] LABS: PARTIAL THROMBOPLASTIN TIME 32.3 SECONDS (25.0-38.4)
== END ==
LOC: M SFHCCLAY 13:02
PROVIDERS: ATTEND Family Medicine
DX: C21.0 Malignant neoplasm of anus, unspecified (principal); I10 Essential (primary) hypertension; I48.0 Paroxysmal atrial fibrillation

== ENCOUNTER → 2019-09-11 | Outpatient (REF) | payer MEDICARE ==
[~2019-09-11] MED LIST changes: -OMEP-172 PO; +OMEP1CAP73 PO
== END ==
LOC: M SFHCCLAY 19:09
PROVIDERS: ATTEND Family Medicine
DX: L82.1 Other seborrheic keratosis (principal)
CPT/HCPCS: 11106; 88305; G0463

== ENCOUNTER → 2019-11-12 | Outpatient (REF) | payer MEDICARE ==
[2019-11-12 16:12] LABS: BASO % 0.6 % (0.0-1.0); EOS % 0.9 % (0.0-3.0); HEMATOCRIT 39.1 % (36.0-47.0); HEMOGLOBIN 12.4 g/dl (12.0-15.5); LYMPH # 1.3 10^3/uL (1.5-5.0); LYMPH % 26.8 % (24.0-44.0); MEAN CORPUSCULAR HEMOGLOBIN 30.8 pg (27.0-33.0); MEAN CORPUSCULAR HGB CONC 31.7 g/dl (32.0-36.5); MEAN CORPUSCULAR VOLUME 97.3 fl (80.0-96.0); MONO # 0.6 10^3/uL (0.0-0.8); MONO % 12.4 % (0.0-5.0); NEUTROPHILS # 2.8 10^3/uL (1.5-8.5); NEUTROPHILS % 59.1 % (36.0-66.0); PLATELET COUNT, AUTOMATED 243 10^3/uL (150-450); RED BLOOD COUNT 4.02 10^6/uL (4.00-5.40); WHITE BLOOD COUNT 4.7 10^3/uL (4.0-10.0)
[2019-11-12 16:17] LABS: ALT/SGPT 20 U/L (12-78); BILIRUBIN,TOTAL 0.4 MG/DL (0.2-1.0); BLOOD UREA NITROGEN 22 MG/DL (7-18); CALCIUM LEVEL 9.1 MG/DL (8.8-10.2); CARBON DIOXIDE LEVEL 31 MEQ/L (21-32); CHLORIDE LEVEL 106 MEQ/L (98-107); CHOLESTEROL LEVEL 295 MG/DL (<200); CHOLESTEROL RISK RATIO 5.175 (<5); CREATININE FOR GFR 0.88 MG/DL (0.55-1.30); GLOMERULAR FILTRATION RATE > 60.0 (>45); GLUCOSE, FASTING 92 MG/DL (70-100); HDL CHOLESTEROL 57 MG/DL (>40); IRON (FE) 111 UG/DL (50-170); LDL CHOLESTEROL 207 MG/DL (<100); MAGNESIUM LEVEL 2.3 MG/DL (1.8-2.4); NON-HDL-C 238 MG/DL; POTASSIUM SERUM 4.3 MEQ/L (3.5-5.1); SODIUM LEVEL 142 MEQ/L (136-145); TOTAL PROTEIN 6.8 GM/DL (6.4-8.2); TRIGLYCERIDES LEVEL 156 MG/DL (<150)
[2019-11-12 16:31] LABS: FOLATE > 24.0 NG/ML (>5.4); VITAMIN B12 LEVEL > 2000 PG/ML (247-911)
== END ==
LOC: M SFHCCLAY 11:57
PROVIDERS: ATTEND Family Medicine
DX: I10 Essential (primary) hypertension (principal); E78.2 Mixed hyperlipidemia; D64.9 Anemia, unspecified

== ENCOUNTER → 2019-12-15 | Outpatient (REF) | payer MEDICARE ==
[~2019-12-15] MED LIST changes: -ASPI81TA85 PO; +ASPI81TA86 PO
== END ==
LOC: M LAB REF 17:46
PROVIDERS: ATTEND Dermatology
DX: D22.61 Melanocytic nevi of right upper limb, including shoulder (principal)
CPT/HCPCS: 11104; 17000; 88305; G0463

== ENCOUNTER → 2020-05-12 | Outpatient (REF) | payer MEDICARE ==
[2020-05-12 16:12] LABS: BASO % 0.8 % (0.0-1.0); EOS % 1.1 % (0.0-3.0); HEMATOCRIT 38.3 % (36.0-47.0); HEMOGLOBIN 12.1 g/dl (12.0-15.5); LYMPH # 1.2 10^3/uL (1.5-5.0); LYMPH % 32.4 % (24.0-44.0); MEAN CORPUSCULAR HEMOGLOBIN 30.6 pg (27.0-33.0); MEAN CORPUSCULAR HGB CONC 31.6 g/dl (32.0-36.5); MEAN CORPUSCULAR VOLUME 96.7 fl (80.0-96.0); MONO # 0.4 10^3/uL (0.0-0.8); MONO % 9.7 % (0.0-5.0); NEUTROPHILS # 2.1 10^3/uL (1.5-8.5); NEUTROPHILS % 55.7 % (36.0-66.0); PLATELET COUNT, AUTOMATED 233 10^3/uL (150-450); RED BLOOD COUNT 3.96 10^6/uL (4.00-5.40); WHITE BLOOD COUNT 3.7 10^3/uL (4.0-10.0)
[2020-05-12 16:43] LABS: ALBUMIN 4.1 GM/DL (3.2-5.2); ALT/SGPT 18 U/L (12-78); BILIRUBIN,TOTAL 0.5 MG/DL (0.2-1.0); BLOOD UREA NITROGEN 22 MG/DL (7-18); CALCIUM LEVEL 9.7 MG/DL (8.8-10.2); CARBON DIOXIDE LEVEL 28 MEQ/L (21-32); CHLORIDE LEVEL 104 MEQ/L (98-107); CREATININE FOR GFR 0.89 MG/DL (0.55-1.30); GLOMERULAR FILTRATION RATE > 60.0 (>45); GLUCOSE, FASTING 87 MG/DL (70-100); POTASSIUM SERUM 4.7 MEQ/L (3.5-5.1); SODIUM LEVEL 140 MEQ/L (136-145); TOTAL PROTEIN 6.9 GM/DL (6.4-8.2)
== END ==
LOC: M SFHCCLAY 11:02
PROVIDERS: ATTEND Family Medicine
DX: I10 Essential (primary) hypertension (principal); Z23 Encounter for immunization
CPT/HCPCS: 80053; 85025; 90682; 90732; G0008; G0009; G0463

== ENCOUNTER → 2020-08-17 | Outpatient (REF) | payer MEDICARE ==
[2020-08-17 16:35] LABS: APPEARANCE, URINE HAZY (CLEAR); BACTERIA, URINE AUTO NEGATIVE (NEGATIVE); BILIRUBIN, URINE AUTO NEGATIVE (NEGATIVE); BLOOD, URINE BLOOD 1+ (NEGATIVE); COLOR, URINE AMBER (YELLOW); GLUCOSE, URINE (UA) AUTO NEGATIVE (NEGATIVE); KETONE, URINE AUTO NEGATIVE (NEGATIVE); LEUKOCYTE ESTERASE, URINE AUTO 2+ (NEGATIVE); MUCUS, URINE SMALL (NEGATIVE); NITRITE, URINE AUTO POSITIVE (NEGATIVE); PROTEIN, URINE AUTO NEGATIVE (NEGATIVE); RBC, URINE AUTO 3 /HPF (0-3); RENAL EPITHELIAL CELLS 1 /HPF; SQUAMOUS EPITHELIAL CELL UR AU 0 /HPF (0-6); WBC, URINE AUTO TNTC /HPF (0-3)
== END ==
LOC: M LABSMT 10:54
PROVIDERS: ATTEND Nurse Practitioner Family
DX: N39.0 Urinary tract infection, site not specified (principal)

== ENCOUNTER → 2020-12-02 | Outpatient (CLI) | payer MEDICARE ==
[~2020-12-02] MED LIST changes: +LIDO1CRE42 TOP; -LIDO2.5C15 TOP
--- NOTE | 2020-12-02 11:10 | REP ---
INDICATION: M79.641, RIGHT HAND PAIN COMPARISON: None. TECHNIQUE: AP, lateral, bilateral oblique views right hand. FINDINGS: Moderate osteoarthritic degenerative changes primarily involving the interphalangeal joints noted. Findings include periarticular sclerosis, joint space narrowing, marginal spurring/osteophyte formation. Mild degenerative changes at the 1st metacarpophalangeal joint includes periarticular sclerosis and minimal joint space narrowing. No periarticular erosive changes or loose bodies are identified. No acute fracture or dislocation. IMPRESSION: Moderate osteoarthritic degenerative changes. No acute fracture or dislocation. <Electronically signed by Sami Adorno > 12/02/20 1100
== END ==
LOC: M CLY 09:59
PROVIDERS: ATTEND Family Medicine
DX: M19.041 Primary osteoarthritis, right hand (principal); M79.641 Pain in right hand
CPT/HCPCS: 73130; G0463

== ENCOUNTER → 2020-12-02 | Outpatient (REF) | payer MEDICARE ==
[2020-12-02 16:45] LABS: BASO % 0.8 % (0.0-1.0); EOS # 0.1 10^3/uL (0.0-0.5); EOS % 3.4 % (0.0-3.0); HEMATOCRIT 38.5 % (36.0-47.0); HEMOGLOBIN 12.3 g/dl (12.0-15.5); LYMPH # 0.9 10^3/uL (1.5-5.0); LYMPH % 26.1 % (24.0-44.0); MEAN CORPUSCULAR HEMOGLOBIN 31.1 pg (27.0-33.0); MEAN CORPUSCULAR HGB CONC 31.9 g/dl (32.0-36.5); MEAN CORPUSCULAR VOLUME 97.2 fl (80.0-96.0); MONO # 0.5 10^3/uL (0.0-0.8); NEUTROPHILS % 55.4 % (36.0-66.0); PLATELET COUNT, AUTOMATED 245 10^3/uL (150-450); RED BLOOD COUNT 3.96 10^6/uL (4.00-5.40); WHITE BLOOD COUNT 3.6 10^3/uL (4.0-10.0)
[2020-12-02 17:35] LABS: ERYTHROCYTE SEDIMENTATION RATE 18 mm/hr (0-30)
[2020-12-02 17:41] LABS: ALBUMIN 3.8 GM/DL (3.2-5.2); ALT/SGPT 20 U/L (12-78); BILIRUBIN,TOTAL 0.3 MG/DL (0.2-1.0); BLOOD UREA NITROGEN 19 MG/DL (7-18); C REACTIVE PROTEIN QUANTITATIV 0.38 MG/DL (0.00-0.30); CALCIUM LEVEL 9.8 MG/DL (8.8-10.2); CARBON DIOXIDE LEVEL 29 MEQ/L (21-32); CHLORIDE LEVEL 106 MEQ/L (98-107); CHOLESTEROL LEVEL 246 MG/DL (<200); CHOLESTEROL RISK RATIO 4.823 (<5); CREATININE FOR GFR 0.89 MG/DL (0.55-1.30); GLOMERULAR FILTRATION RATE > 60.0 (>45); GLUCOSE, FASTING 83 MG/DL (70-100); HDL CHOLESTEROL 51 MG/DL (>40); IRON (FE) 77 UG/DL (50-170); LDL CHOLESTEROL 172 MG/DL (<100); NON-HDL-C 195 MG/DL; POTASSIUM SERUM 4.7 MEQ/L (3.5-5.1); RHEUMATOID FACTOR QUANT < 10.0 IU/ML (<15.0); SODIUM LEVEL 141 MEQ/L (136-145); TOTAL PROTEIN 6.6 GM/DL (6.4-8.2); TRIGLYCERIDES LEVEL 117 MG/DL (<150)
[2020-12-02 17:53] LABS: FOLATE > 24.0 NG/ML (>5.4); VITAMIN B12 LEVEL > 2000 PG/ML (247-911)
[2020-12-07 00:07] LABS: ANA (HEP2) Negative (.); CYCLIC CITRULLINATED PEPTIDE 3 units (0-19); Lyme Disease IgG/IgM Antibodie <0.91 ISR (0.00-0.90); Lyme Disease IgM Ab Quantitati <0.80 index (0.00-0.79)
== END ==
LOC: M SFHCCLAY 09:55
PROVIDERS: ATTEND Family Medicine
DX: E78.2 Mixed hyperlipidemia (principal); M79.641 Pain in right hand; M79.10 Myalgia, unspecified site; D64.9 Anemia, unspecified

== ENCOUNTER → 2021-02-08 | Outpatient (REF) | payer MEDICARE ==
[2021-02-08 11:53] LABS: BASO % 0.3 % (0.0-1.0); EOS # 0.1 10^3/uL (0.0-0.5); EOS % 1.3 % (0.0-3.0); HEMOGLOBIN 12.7 g/dl (12.0-15.5); LYMPH # 2.4 10^3/uL (1.5-5.0); LYMPH % 35.2 % (24.0-44.0); MEAN CORPUSCULAR HEMOGLOBIN 30.6 pg (27.0-33.0); MEAN CORPUSCULAR HGB CONC 31.8 g/dl (32.0-36.5); MEAN CORPUSCULAR VOLUME 96.4 fl (80.0-96.0); MONO # 0.7 10^3/uL (0.0-0.8); MONO % 10.3 % (2.0-8.0); NEUTROPHILS # 3.6 10^3/uL (1.5-8.5); PLATELET COUNT, AUTOMATED 334 10^3/uL (150-450); RED BLOOD COUNT 4.15 10^6/uL (4.00-5.40); WHITE BLOOD COUNT 6.9 10^3/uL (4.0-10.0)
[2021-02-08 12:29] LABS: BLOOD UREA NITROGEN 23 MG/DL (7-18); CALCIUM LEVEL 9.5 MG/DL (8.8-10.2); CARBON DIOXIDE LEVEL 32 MEQ/L (21-32); CHLORIDE LEVEL 103 MEQ/L (98-107); CHOLESTEROL LEVEL 292 MG/DL (<200); CHOLESTEROL RISK RATIO 4.949 (<5); CREATININE FOR GFR 0.93 MG/DL (0.55-1.30); GLOMERULAR FILTRATION RATE > 60.0 (>45); GLUCOSE, FASTING 84 MG/DL (70-100); HDL CHOLESTEROL 59 MG/DL (>40); LDL CHOLESTEROL 188 MG/DL (<100); MAGNESIUM LEVEL 2.5 MG/DL (1.8-2.4); NON-HDL-C 233 MG/DL; POTASSIUM SERUM 4.3 MEQ/L (3.5-5.1); SODIUM LEVEL 140 MEQ/L (136-145); TRIGLYCERIDES LEVEL 227 MG/DL (<150)
== END ==
LOC: M LABDRAWC 11:26
PROVIDERS: ATTEND Physician Assistant
DX: I48.0 Paroxysmal atrial fibrillation (principal); E78.00 Pure hypercholesterolemia, unspecified

== ENCOUNTER → 2021-02-20 | Outpatient (REF) | payer MEDICARE ==
[2021-02-21 11:51] LABS: FREE T4 0.73 NG/DL (0.76-1.46)
[2021-02-21 11:53] LABS: THYROGLOBULIN ANTIBODY < 15.0 U/ML (<60.0); TOTAL T3 104.1 NG/DL (60.0-181.0)
== END ==
LOC: M SFHCCLAY 13:58
PROVIDERS: ATTEND Family Medicine
DX: R79.89 Other specified abnormal findings of blood chemistry (principal)

== ENCOUNTER → 2021-03-14 | Outpatient (REF) | payer MEDICARE ==
[2021-03-16 23:07] LABS: FLECAINIDE LEVEL <0.10 ug/mL (0.20-1.00)
== END ==
LOC: M LABDRAWC 11:15
PROVIDERS: ATTEND Physician Assistant
DX: I48.0 Paroxysmal atrial fibrillation (principal)

== ENCOUNTER → 2021-03-14 | Outpatient (REF) | payer MEDICARE ==
[2021-03-14 13:06] LABS: CORTISOL AM 28.1 UG/DL (4.3-22.4); FREE T4 0.85 NG/DL (0.76-1.46); THYROID STIMULATING HORMONE 6.76 uIU/ML (0.358-3.740); TOTAL T3 106.7 NG/DL (60.0-181.0)
== END ==
LOC: M SFHCCLAY 07:10
PROVIDERS: ATTEND Family Medicine
DX: R79.89 Other specified abnormal findings of blood chemistry (principal); I48.0 Paroxysmal atrial fibrillation

== ENCOUNTER → 2021-03-27 | Outpatient (CLI) | payer MEDICARE | LOC: M RAD 14:24 | PROVIDERS: ATTEND Family Medicine | DX: H53.9 Unspecified visual disturbance (principal); R20.0 Anesthesia of skin; R79.89 Other specified abnormal findings of blood chemistry ==

== ENCOUNTER → 2021-04-04 | Outpatient (REF) | payer MEDICARE ==
[2021-04-04 12:07] LABS: BASO % 1.1 % (0.0-1.0); EOS # 0.2 10^3/uL (0.0-0.5); EOS % 4.2 % (0.0-3.0); HEMATOCRIT 37.9 % (36.0-47.0); HEMOGLOBIN 12.3 g/dl (12.0-15.5); LYMPH # 1.2 10^3/uL (1.5-5.0); LYMPH % 34.3 % (24.0-44.0); MEAN CORPUSCULAR HEMOGLOBIN 31.1 pg (27.0-33.0); MEAN CORPUSCULAR HGB CONC 32.5 g/dl (32.0-36.5); MEAN CORPUSCULAR VOLUME 95.7 fl (80.0-96.0); MONO # 0.5 10^3/uL (0.0-0.8); MONO % 13.2 % (2.0-8.0); NEUTROPHILS # 1.7 10^3/uL (1.5-8.5); NEUTROPHILS % 46.9 % (36.0-66.0); PLATELET COUNT, AUTOMATED 254 10^3/uL (150-450); RED BLOOD COUNT 3.96 10^6/uL (4.00-5.40); WHITE BLOOD COUNT 3.6 10^3/uL (4.0-10.0)
[2021-04-04 12:36] LABS: FOLATE > 24.0 NG/ML (>5.4); FREE T4 1.12 NG/DL (0.76-1.46); TOTAL T3 97.5 NG/DL (60.0-181.0); VITAMIN B12 LEVEL > 2000 PG/ML (247-911)
== END ==
LOC: M SFHCCLAY 08:57
PROVIDERS: ATTEND Family Medicine
DX: D64.9 Anemia, unspecified (principal); R20.0 Anesthesia of skin; E55.9 Vitamin D deficiency, unspecified; R79.89 Other specified abnormal findings of blood chemistry; M79.10 Myalgia, unspecified site

== ENCOUNTER → 2021-05-17 | Outpatient (REF) | payer MEDICARE ==
[2021-05-17 17:17] LABS: FREE T4 1.16 NG/DL (0.76-1.46); THYROID STIMULATING HORMONE 0.942 uIU/ML (0.358-3.740); TOTAL T3 105.8 NG/DL (60.0-181.0)
== END ==
LOC: M SFHCCLAY 10:41
PROVIDERS: ATTEND Nurse Practitioner Family
DX: R79.89 Other specified abnormal findings of blood chemistry (principal)

== ENCOUNTER → 2021-07-19 | Outpatient (REF) | payer MEDICARE, BC ==
[2021-07-19 12:07] LABS: BASO % 0.9 % (0.0-1.0); EOS # 0.2 10^3/uL (0.0-0.5); EOS % 5.3 % (0.0-3.0); HEMATOCRIT 38.7 % (36.0-47.0); HEMOGLOBIN 12.1 g/dl (12.0-15.5); LYMPH # 1.4 10^3/uL (1.5-5.0); LYMPH % 30.7 % (24.0-44.0); MEAN CORPUSCULAR HGB CONC 31.3 g/dl (32.0-36.5); MEAN CORPUSCULAR VOLUME 95.8 fl (80.0-96.0); MONO # 0.5 10^3/uL (0.0-0.8); MONO % 11.9 % (2.0-8.0); NEUTROPHILS # 2.3 10^3/uL (1.5-8.5); PLATELET COUNT, AUTOMATED 250 10^3/uL (150-450); RED BLOOD COUNT 4.04 10^6/uL (4.00-5.40); WHITE BLOOD COUNT 4.5 10^3/uL (4.0-10.0)
[2021-07-19 13:36] LABS: ALBUMIN 3.8 GM/DL (3.2-5.2); ALT/SGPT 22 U/L (12-78); BILIRUBIN,TOTAL 0.3 MG/DL (0.2-1.0); BLOOD UREA NITROGEN 18 MG/DL (7-18); CALCIUM LEVEL 9.4 MG/DL (8.8-10.2); CARBON DIOXIDE LEVEL 27 MEQ/L (21-32); CHLORIDE LEVEL 108 MEQ/L (98-107); CHOLESTEROL LEVEL 213 MG/DL (<200); CHOLESTEROL RISK RATIO 4.018 (<5); CREATININE FOR GFR 0.93 MG/DL (0.55-1.30); FOLATE > 24.0 NG/ML (>5.4); FREE T4 1.12 NG/DL (0.76-1.46); GLOMERULAR FILTRATION RATE > 60.0 (>45); GLUCOSE, FASTING 108 MG/DL (70-100); HDL CHOLESTEROL 53 MG/DL (>40); IRON (FE) 77 UG/DL (50-170); LDL CHOLESTEROL 136 MG/DL (<100); MAGNESIUM LEVEL 2.3 MG/DL (1.8-2.4); NON-HDL-C 160 MG/DL; POTASSIUM SERUM 4.7 MEQ/L (3.5-5.1); SODIUM LEVEL 143 MEQ/L (136-145); TOTAL PROTEIN 6.7 GM/DL (6.4-8.2); TRIGLYCERIDES LEVEL 120 MG/DL (<150); VITAMIN B12 LEVEL > 2000 PG/ML (247-911)
== END ==
LOC: M SFHCCLAY 08:10
PROVIDERS: ATTEND Family Medicine
DX: R79.89 Other specified abnormal findings of blood chemistry (principal); E78.2 Mixed hyperlipidemia; I10 Essential (primary) hypertension; D64.9 Anemia, unspecified

== ENCOUNTER → 2021-08-07 | Outpatient (CLI) | payer MEDICARE, BC | LOC: M PLAIMG 14:41 | PROVIDERS: ATTEND Specialist | DX: M89.9 Disorder of bone, unspecified (principal) ==

== ENCOUNTER → 2021-10-24 | Outpatient (REF) | payer MEDICARE, BC ==
[2021-10-24 12:02] LABS: BASO # 0.1 10^3/uL (0.0-0.2); EOS # 0.1 10^3/uL (0.0-0.5); EOS % 2.2 % (0.0-3.0); HEMATOCRIT 37.8 % (36.0-47.0); HEMOGLOBIN 12.3 g/dl (12.0-15.5); LYMPH # 1.8 10^3/uL (1.5-5.0); LYMPH % 28.7 % (24.0-44.0); MEAN CORPUSCULAR HEMOGLOBIN 30.5 pg (27.0-33.0); MEAN CORPUSCULAR HGB CONC 32.5 g/dl (32.0-36.5); MEAN CORPUSCULAR VOLUME 93.8 fl (80.0-96.0); MONO # 0.6 10^3/uL (0.0-0.8); MONO % 8.9 % (2.0-8.0); NEUTROPHILS # 3.7 10^3/uL (1.5-8.5); NEUTROPHILS % 58.6 % (36.0-66.0); PLATELET COUNT, AUTOMATED 242 10^3/uL (150-450); RED BLOOD COUNT 4.03 10^6/uL (4.00-5.40); WHITE BLOOD COUNT 6.3 10^3/uL (4.0-10.0)
[2021-10-24 12:43] LABS: ALBUMIN 3.8 GM/DL (3.2-5.2); ALT/SGPT 21 U/L (12-78); BILIRUBIN,TOTAL 0.5 MG/DL (0.2-1.0); BLOOD UREA NITROGEN 20 MG/DL (7-18); CALCIUM LEVEL 9.7 MG/DL (8.8-10.2); CARBON DIOXIDE LEVEL 28 MEQ/L (21-32); CHLORIDE LEVEL 108 MEQ/L (98-107); CREATININE FOR GFR 0.75 MG/DL (0.55-1.30); FREE T4 0.98 NG/DL (0.76-1.46); GLOMERULAR FILTRATION RATE > 60.0 (>45); GLUCOSE, FASTING 108 MG/DL (70-100); POTASSIUM SERUM 4.3 MEQ/L (3.5-5.1); SODIUM LEVEL 142 MEQ/L (136-145); TOTAL PROTEIN 6.6 GM/DL (6.4-8.2); TOTAL T3 108.2 NG/DL (60.0-181.0)
== END ==
LOC: M SFHCCLAY 07:49
PROVIDERS: ATTEND Family Medicine
DX: R79.89 Other specified abnormal findings of blood chemistry (principal); I10 Essential (primary) hypertension; D64.9 Anemia, unspecified

== ENCOUNTER → 2022-01-17 | Outpatient (REF) | payer MEDICARE, BC ==
[2022-01-17 12:08] LABS: BASO % 1.3 % (0.0-1.0); EOS # 0.1 10^3/uL (0.0-0.5); EOS % 4.2 % (0.0-3.0); HEMATOCRIT 38.9 % (36.0-47.0); HEMOGLOBIN 12.5 g/dl (12.0-15.5); LYMPH # 1.2 10^3/uL (1.5-5.0); LYMPH % 37.9 % (24.0-44.0); MEAN CORPUSCULAR HEMOGLOBIN 30.9 pg (27.0-33.0); MEAN CORPUSCULAR HGB CONC 32.1 g/dl (32.0-36.5); MEAN CORPUSCULAR VOLUME 96.3 fl (80.0-96.0); MONO # 0.3 10^3/uL (0.0-0.8); MONO % 10.7 % (2.0-8.0); NEUTROPHILS # 1.4 10^3/uL (1.5-8.5); NEUTROPHILS % 45.9 % (36.0-66.0); PLATELET COUNT, AUTOMATED 227 10^3/uL (150-450); RED BLOOD COUNT 4.04 10^6/uL (4.00-5.40); WHITE BLOOD COUNT 3.1 10^3/uL (4.0-10.0)
[2022-01-17 13:19] LABS: ALBUMIN 3.9 GM/DL (3.2-5.2); ALT/SGPT 21 U/L (12-78); BILIRUBIN,TOTAL 0.5 MG/DL (0.2-1.0); BLOOD UREA NITROGEN 21 MG/DL (7-18); CALCIUM LEVEL 9.2 MG/DL (8.8-10.2); CARBON DIOXIDE LEVEL 29 MEQ/L (21-32); CHLORIDE LEVEL 108 MEQ/L (98-107); GLOMERULAR FILTRATION RATE > 60.0 (>45); GLUCOSE, FASTING 110 MG/DL (70-100); IRON (FE) 97 UG/DL (50-170); POTASSIUM SERUM 4.4 MEQ/L (3.5-5.1); SODIUM LEVEL 141 MEQ/L (136-145); TOTAL PROTEIN 6.5 GM/DL (6.4-8.2)
[2022-01-17 13:53] LABS: VITAMIN B12 LEVEL 583 PG/ML (247-911)
[2022-01-17 13:54] LABS: FOLATE > 24.0 NG/ML (>5.4)
[2022-01-18 15:24] LABS: CHOLESTEROL LEVEL 200 MG/DL (<200); CHOLESTEROL RISK RATIO 3.773 (<5); HDL CHOLESTEROL 53 MG/DL (>40); LDL CHOLESTEROL 125 MG/DL (<100); NON-HDL-C 147 MG/DL; TRIGLYCERIDES LEVEL 110 MG/DL (<150)
== END ==
LOC: M SFHCCLAY 08:12
PROVIDERS: ATTEND Family Medicine
DX: R79.89 Other specified abnormal findings of blood chemistry (principal); D64.9 Anemia, unspecified; E55.9 Vitamin D deficiency, unspecified; I10 Essential (primary) hypertension

== ENCOUNTER → 2022-05-02 | Outpatient (REF) | payer MEDICARE, BC ==
[2022-05-02 17:30] LABS: BASO % 0.4 % (0.0-1.0); EOS # 0.1 10^3/uL (0.0-0.5); EOS % 1.2 % (0.0-3.0); HEMATOCRIT 38.6 % (36.0-47.0); HEMOGLOBIN 12.4 g/dl (12.0-15.5); LYMPH # 1.4 10^3/uL (1.5-5.0); MEAN CORPUSCULAR HEMOGLOBIN 31.3 pg (27.0-33.0); MEAN CORPUSCULAR HGB CONC 32.1 g/dl (32.0-36.5); MEAN CORPUSCULAR VOLUME 97.5 fl (80.0-96.0); MONO # 0.4 10^3/uL (0.0-0.8); MONO % 8.8 % (2.0-8.0); NEUTROPHILS # 2.9 10^3/uL (1.5-8.5); NEUTROPHILS % 60.4 % (36.0-66.0); PLATELET COUNT, AUTOMATED 326 10^3/uL (150-450); RED BLOOD COUNT 3.96 10^6/uL (4.00-5.40); WHITE BLOOD COUNT 4.9 10^3/uL (4.0-10.0)
[2022-05-02 19:41] LABS: ALBUMIN 3.9 GM/DL (3.2-5.2); ALT/SGPT 22 U/L (12-78); BILIRUBIN,TOTAL 0.5 MG/DL (0.2-1.0); BLOOD UREA NITROGEN 21 MG/DL (7-18); CALCIUM LEVEL 9.3 MG/DL (8.8-10.2); CARBON DIOXIDE LEVEL 28 MEQ/L (21-32); CHLORIDE LEVEL 106 MEQ/L (98-107); CREATININE FOR GFR 0.84 MG/DL (0.55-1.30); GLOMERULAR FILTRATION RATE > 60.0 (>45); GLUCOSE, FASTING 99 MG/DL (70-100); SODIUM LEVEL 139 MEQ/L (136-145); TOTAL PROTEIN 6.9 GM/DL (6.4-8.2)
[2022-05-02 20:51] LABS: HEMOGLOBIN A1c 5.7 %
== END ==
LOC: M SFHCCLAY 11:07
PROVIDERS: ATTEND Family Medicine
DX: R79.89 Other specified abnormal findings of blood chemistry (principal); I10 Essential (primary) hypertension; R73.09 Other abnormal glucose; D64.9 Anemia, unspecified; E55.9 Vitamin D deficiency, unspecified; E78.2 Mixed hyperlipidemia

== ENCOUNTER → 2022-08-10 | Outpatient (REF) | payer MEDICARE, BC ==
[2022-08-10 11:41] LABS: BASO % 0.8 % (0.0-1.0); EOS # 0.1 10^3/uL (0.0-0.5); EOS % 3.7 % (0.0-3.0); HEMATOCRIT 37.4 % (36.0-47.0); HEMOGLOBIN 11.9 g/dl (12.0-15.5); LYMPH # 1.7 10^3/uL (1.5-5.0); LYMPH % 45.3 % (24.0-44.0); MEAN CORPUSCULAR HGB CONC 31.8 g/dl (32.0-36.5); MEAN CORPUSCULAR VOLUME 97.4 fl (80.0-96.0); MONO # 0.4 10^3/uL (0.0-0.8); MONO % 11.7 % (2.0-8.0); NEUTROPHILS # 1.4 10^3/uL (1.5-8.5); NEUTROPHILS % 38.5 % (36.0-66.0); PLATELET COUNT, AUTOMATED 211 10^3/uL (150-450); RED BLOOD COUNT 3.84 10^6/uL (4.00-5.40); WHITE BLOOD COUNT 3.8 10^3/uL (4.0-10.0)
[2022-08-10 12:11] LABS: ALBUMIN 3.7 G/DL (3.2-5.2); ALKALINE PHOSPHATASE 52 U/L (46-116); ALT/SGPT 15 U/L (7.0-40); AST/SGOT 18 U/L (<34); BILIRUBIN,TOTAL 0.4 MG/DL (0.3-1.2); BLOOD UREA NITROGEN 23 MG/DL (9-23); CALCIUM LEVEL 9.4 MG/DL (8.3-10.6); CARBON DIOXIDE LEVEL 28 MMOL/L (20-31); CHLORIDE LEVEL 107 MMOL/L (98-107); CREATININE FOR GFR 0.82 MG/DL (0.55-1.30); GLOMERULAR FILTRATION RATE > 60.0 (>45); GLUCOSE, FASTING 100 MG/DL (74-106); MAGNESIUM LEVEL 2.1 MG/DL (1.8-2.4); POTASSIUM SERUM 4.5 MMOL/L (3.5-5.1); SODIUM LEVEL 144 MMOL/L (136-145); TOTAL PROTEIN 6.2 G/DL (5.7-8.2)
[2022-08-10 12:15] LABS: TOTAL T3 98.3 NG/DL (60.0-181.0)
[2022-08-10 12:16] LABS: FREE T4 1.19 NG/DL (0.89-1.76); VITAMIN B12 LEVEL 636 PG/ML (211-911)
[2022-08-10 12:17] LABS: FOLATE > 24.00 NG/ML (>5.4)
== END ==
LOC: M SFHCCLAY 07:29
PROVIDERS: ATTEND Family Medicine
DX: I10 Essential (primary) hypertension (principal); R79.89 Other specified abnormal findings of blood chemistry; D64.9 Anemia, unspecified; E55.9 Vitamin D deficiency, unspecified

== ENCOUNTER → 2022-08-14 | Outpatient (REF) | payer MEDICARE, BC ==
[2022-08-21 12:09] LABS: ANTI THROMBIN 3 ANTIGEN IMMUNO 103 % (72-124); ANTI THROMBIN 3 FUNCT ACTIVITY 124 % (75-135); PROTEIN C FUNCTIONAL ACTIVITY 166 % (73-180); PROTEIN S ANTIGEN FREE 122 % (61-136); PROTEIN S ANTIGEN TOTAL 86 % (60-150)
== END ==
LOC: M SFHCCLAY 09:14
PROVIDERS: ATTEND Family Medicine
DX: I82.1 Thrombophlebitis migrans (principal)

== ENCOUNTER → 2022-11-19 | Outpatient (REF) | payer MEDICARE, BC ==
[2022-11-19 11:40] LABS: BASO % 1.1 % (0.0-1.0); EOS # 0.2 10^3/uL (0.0-0.5); EOS % 4.2 % (0.0-3.0); HEMATOCRIT 35.1 % (36.0-47.0); HEMOGLOBIN 11.5 g/dl (12.0-15.5); LYMPH % 28.5 % (24.0-44.0); MEAN CORPUSCULAR HEMOGLOBIN 31.9 pg (27.0-33.0); MEAN CORPUSCULAR HGB CONC 32.8 g/dl (32.0-36.5); MEAN CORPUSCULAR VOLUME 97.2 fl (80.0-96.0); MONO # 0.4 10^3/uL (0.0-0.8); MONO % 9.8 % (2.0-8.0); NEUTROPHILS % 56.1 % (36.0-66.0); PLATELET COUNT, AUTOMATED 229 10^3/uL (150-450); RED BLOOD COUNT 3.61 10^6/uL (4.00-5.40); WHITE BLOOD COUNT 3.6 10^3/uL (4.0-10.0)
[2022-11-19 12:00] LABS: HEMOGLOBIN A1c 5.2 % (4.0-6.0)
[2022-11-19 12:08] LABS: ALBUMIN 3.9 G/DL (3.2-5.2); ALKALINE PHOSPHATASE 54 U/L (46-116); ALT/SGPT 15 U/L (7.0-40); AST/SGOT 15 U/L (<34); BILIRUBIN,TOTAL 0.4 MG/DL (0.3-1.2); BLOOD UREA NITROGEN 22 MG/DL (9-23); CALCIUM LEVEL 9.6 MG/DL (8.3-10.6); CARBON DIOXIDE LEVEL 27 MMOL/L (20-31); CHLORIDE LEVEL 108 MMOL/L (98-107); CREATININE FOR GFR 0.86 MG/DL (0.55-1.30); FOLATE > 24.00 NG/ML (>5.4); GLOMERULAR FILTRATION RATE > 60.0 (>45); GLUCOSE, FASTING 107 MG/DL (74-106); POTASSIUM SERUM 4.9 MMOL/L (3.5-5.1); SODIUM LEVEL 142 MMOL/L (136-145); TOTAL PROTEIN 6.3 G/DL (5.7-8.2); TOTAL T3 117.1 NG/DL (60.0-181.0)
[2022-11-19 12:09] LABS: FREE T4 1.27 NG/DL (0.89-1.76)
[2022-11-19 12:10] LABS: THYROID STIMULATING HORMONE 1.532 uIU/ML (0.55-4.78)
[2022-11-19 12:13] LABS: VITAMIN B12 LEVEL > 2000 PG/ML (211-911)
== END ==
LOC: M SFHCCLAY 07:22
PROVIDERS: ATTEND Family Medicine
DX: I10 Essential (primary) hypertension (principal); G62.9 Polyneuropathy, unspecified; D64.9 Anemia, unspecified; R79.89 Other specified abnormal findings of blood chemistry; R73.09 Other abnormal glucose

== ENCOUNTER 2022-12-10 10:38 | Day surgery (SDC) | payer MEDICARE, BC ==
[~2022-12-10] VITALS: Ht 160 cm; Wt 69.7 kg
[~2022-12-10 10:38] MED LIST changes: +CALTTAB6 PO; +CENT1TAB PO; +ECOT81TA5 PO; +LIDOCAINE 2% 100MG/5ML SDV (FOR ANES.) As Ordered ONE; +LOPE2TAB12 PO; +MACR100C43 PO; +MESA50SU PR; +NS 1,000 ML IV ONE; +PENT500C PO; +SYNT50TA PO; +VITA100093 PO; +propofoL 200 MG/20 ML VIAL As Ordered ONE
[2022-12-10 13:00] VITALS: BP 131/59
== END 2022-12-10 13:02 | disposition home or self-care (01) ==
LOC: M OPP 10:38
PROVIDERS: ATTEND Internal Medicine Gastroenterology
DX: Z85.048 Personal history of other malignant neoplasm of rectum, rectosigmoid junction, and anus (principal); K64.0 First degree hemorrhoids; K57.30 Diverticulosis of large intestine without perforation or abscess without bleeding; I48.91 Unspecified atrial fibrillation; I10 Essential (primary) hypertension; E78.5 Hyperlipidemia, unspecified; E03.9 Hypothyroidism, unspecified; K21.9 Gastro-esophageal reflux disease without esophagitis; M19.90 Unspecified osteoarthritis, unspecified site; Z86.711 Personal history of pulmonary embolism; Z86.718 Personal history of other venous thrombosis and embolism; Z92.21 Personal history of antineoplastic chemotherapy; Z92.3 Personal history of irradiation; Z88.2 Allergy status to sulfonamides; Z88.5 Allergy status to narcotic agent; Z91.011 Allergy to milk products; Z79.82 Long term (current) use of aspirin; Z79.890 Hormone replacement therapy; Z79.899 Other long term (current) drug therapy

== ENCOUNTER → 2022-12-14 | Outpatient (CLI) | payer MEDICARE, BC ==
[~2022-12-14] MED LIST changes: -LIDOCAINE 2% 100MG/5ML SDV (FOR ANES.) As Ordered ONE; -NS 1,000 ML IV ONE; -propofoL 200 MG/20 ML VIAL As Ordered ONE
[2022-12-14 11:54] LABS: APPEARANCE, URINE MANUAL HAZY (CLEAR); COLOR, URINE MANUAL COLORLESS (YELLOW); PH,URINE MAN 5.5 UNITS (5.0 - 7.0)
[2022-12-14 11:55] LABS: BILIRUBIN, URINE MANUAL NEGATIVE (NEGATIVE); BLOOD URINE MANUAL POSITIVE (NEGATIVE); GLUCOSE, URINE (UA) MANUAL NEGATIVE (NEGATIVE); KETONE, URINE MANUAL NEGATIVE (NEGATIVE); LEUKOCYTE ESTERASE, URINE MAN POSITIVE (NEGATIVE); NITRITE, URINE MANUAL NEGATIVE (NEGATIVE); PROTEIN, URINE MANUAL 1+ mg/dL (NEGATIVE); UROBILINOGEN, URINE MANUAL NORMAL (NORMAL)
[2022-12-14 12:12] LABS: BACTERIA, URINE SMALL AMOUNT; HYALINE CAST, URINE NONE SEEN /lpf (0-1); RBC, URINE NONE SEEN /hpf (0-3); SQUAMOUS EPITHELIAL CELL URINE NONE SEEN /hpf (SMALL AMT); WBC, URINE 15-20 /hpf (0-3)
== END ==
LOC: M LAB 10:53
PROVIDERS: ATTEND Urology
DX: R30.0 Dysuria (principal)

== ENCOUNTER → 2022-12-14 | Outpatient (CLI) | payer MEDICARE, BC | LOC: M LAB 10:50 | PROVIDERS: ATTEND Family Medicine | DX: N39.0 Urinary tract infection, site not specified (principal) ==

== ENCOUNTER → 2023-03-07 | Outpatient (REF) | payer MEDICARE, BC ==
[~2023-03-07] MED LIST changes: -LIDO1CRE42 TOP; +LIDO30CR18 TOP
[2023-03-07 11:45] LABS: AMORPHOUS SEDIMENT SMALL (NEGATIVE); APPEARANCE, URINE CLEAR (CLEAR); BACTERIA, URINE AUTO NEGATIVE (NEGATIVE); BILIRUBIN, URINE AUTO NEGATIVE (NEGATIVE); BLOOD, URINE BLOOD NEGATIVE (NEGATIVE); COLOR, URINE YELLOW (YELLOW); GLUCOSE, URINE (UA) AUTO NEGATIVE (NEGATIVE); KETONE, URINE AUTO NEGATIVE (NEGATIVE); LEUKOCYTE ESTERASE, URINE AUTO 1+ (NEGATIVE); MUCUS, URINE SMALL (NEGATIVE); NITRITE, URINE AUTO NEGATIVE (NEGATIVE); PROTEIN, URINE AUTO NEGATIVE (NEGATIVE); RBC, URINE AUTO 0 /HPF (0-3); SPECIFIC GRAVITY URINE AUTO 1.017 (1.002-1.035); SQUAMOUS EPITHELIAL CELL UR AU 1 /HPF (0-6); UROBILINOGEN, URINE AUTO 0.2 mg/dL (0.0-2.0); WBC, URINE AUTO 4 /HPF (0-3)
[2023-03-07 11:51] LABS: HEMATOCRIT 36.6 % (36.0-47.0); MEAN CORPUSCULAR HEMOGLOBIN 32.1 pg (27.0-33.0); MEAN CORPUSCULAR HGB CONC 32.8 g/dl (32.0-36.5); MEAN CORPUSCULAR VOLUME 97.9 fl (80.0-96.0); PLATELET COUNT, AUTOMATED 228 10^3/uL (150-450); RED BLOOD COUNT 3.74 10^6/uL (4.00-5.40); WHITE BLOOD COUNT 3.2 10^3/uL (4.0-10.0)
[2023-03-07 11:56] LABS: IRON (FE) 102 UG/DL (50-170)
[2023-03-07 11:59] LABS: FREE T4 1.15 NG/DL (0.89-1.76); THYROID STIMULATING HORMONE 3.349 uIU/ML (0.55-4.78); TOTAL T3 97.2 NG/DL (60.0-181.0)
[2023-03-07 12:00] LABS: FOLATE > 24.00 NG/ML (>5.4); VITAMIN B12 LEVEL 1143 PG/ML (211-911)
[2023-03-07 12:28] LABS: ALBUMIN 3.5 G/DL (3.2-5.2); ALKALINE PHOSPHATASE 45 U/L (46-116); ALT/SGPT 15 U/L (7.0-40); AST/SGOT 12 U/L (<34); BILIRUBIN,TOTAL 0.5 MG/DL (0.3-1.2); BLOOD UREA NITROGEN 20 MG/DL (9-23); CALCIUM LEVEL 9.2 MG/DL (8.3-10.6); CARBON DIOXIDE LEVEL 29 MMOL/L (20-31); CHLORIDE LEVEL 107 MMOL/L (98-107); CHOLESTEROL LEVEL 202 MG/DL (<200); CHOLESTEROL RISK RATIO 4.27 (<5); CREATININE FOR GFR 0.83 MG/DL (0.55-1.30); GLOMERULAR FILTRATION RATE > 60.0 (>45); GLUCOSE, FASTING 99 MG/DL (74-106); HDL CHOLESTEROL 47.3 MG/DL (>40); LDL CHOLESTEROL 124.3 MG/DL (<100); MAGNESIUM LEVEL 2.1 MG/DL (1.8-2.4); NON-HDL-C 154.7 MG/DL; POTASSIUM SERUM 4.4 MMOL/L (3.5-5.1); SODIUM LEVEL 142 MMOL/L (136-145); TRIGLYCERIDES LEVEL 152 MG/DL (<150)
== END ==
LOC: M SFHCCLAY 08:12
PROVIDERS: ATTEND Family Medicine
DX: I10 Essential (primary) hypertension (principal); R30.0 Dysuria; R79.89 Other specified abnormal findings of blood chemistry; M79.10 Myalgia, unspecified site; D64.9 Anemia, unspecified; E78.2 Mixed hyperlipidemia

== ENCOUNTER → 2023-07-19 | Outpatient (REF) | payer MEDICARE, BC ==
[2023-07-19 11:27] LABS: HEMATOCRIT 35.7 % (36.0-47.0); HEMOGLOBIN 11.6 g/dl (12.0-15.5); MEAN CORPUSCULAR HEMOGLOBIN 32.2 pg (27.0-33.0); MEAN CORPUSCULAR HGB CONC 32.5 g/dl (32.0-36.5); MEAN CORPUSCULAR VOLUME 99.2 fl (80.0-96.0); PLATELET COUNT, AUTOMATED 228 10^3/uL (150-450)
[2023-07-19 11:34] LABS: ALBUMIN 3.7 G/DL (3.2-5.2); ALKALINE PHOSPHATASE 45 U/L (46-116); ALT/SGPT 15 U/L (7.0-40); AST/SGOT 13 U/L (<34); BILIRUBIN,TOTAL 0.5 MG/DL (0.3-1.2); BLOOD UREA NITROGEN 23 MG/DL (9-23); CALCIUM LEVEL 9.3 MG/DL (8.3-10.6); CARBON DIOXIDE LEVEL 30 MMOL/L (20-31); CHLORIDE LEVEL 107 MMOL/L (98-107); GLOMERULAR FILTRATION RATE > 60.0 (>45); GLUCOSE, FASTING 101 MG/DL (74-106); SODIUM LEVEL 143 MMOL/L (136-145); TOTAL PROTEIN 6.2 G/DL (5.7-8.2)
[2023-07-19 11:36] LABS: FREE T4 1.11 NG/DL (0.89-1.76); THYROID STIMULATING HORMONE 2.803 uIU/ML (0.55-4.78)
[2023-07-19 12:15] LABS: HEMOGLOBIN A1c 5.3 % (4.0-6.0)
== END ==
LOC: M SFHCCLAY 07:52
PROVIDERS: ATTEND Family Medicine
DX: I10 Essential (primary) hypertension (principal); R79.89 Other specified abnormal findings of blood chemistry; R73.09 Other abnormal glucose

== ENCOUNTER → 2023-07-31 | Outpatient (CLI) | payer MEDICARE, BC | LOC: M RAD 10:08 | PROVIDERS: ATTEND Family Medicine | DX: K76.89 Other specified diseases of liver (principal) ==

== ENCOUNTER → 2023-09-13 | Outpatient (REF) | payer MEDICARE, BC ==
[2023-09-13 12:24] LABS: CHOLESTEROL RISK RATIO 3.09 (<5); HDL CHOLESTEROL 48.4 MG/DL (>40); LDL CHOLESTEROL 81.4 MG/DL (<100); MAGNESIUM LEVEL 2.2 MG/DL (1.8-2.4); NON-HDL-C 101.6 MG/DL
== END ==
LOC: M LABDRAWC 11:21
PROVIDERS: ATTEND Internal Medicine Cardiovascular Disease
DX: I47.10 Supraventricular tachycardia, unspecified (principal); E78.2 Mixed hyperlipidemia; R00.2 Palpitations

== ENCOUNTER → 2023-10-31 | Outpatient (REF) | payer MEDICARE, BC ==
[2023-10-31 18:12] LABS: HEMOGLOBIN A1c 4.9 % (4.0-6.0)
[2023-10-31 18:28] LABS: IRON (FE) 87 UG/DL (50-170)
[2023-10-31 18:29] LABS: ALBUMIN 3.6 G/DL (3.2-5.2); ALKALINE PHOSPHATASE 46 U/L (46-116); ALT/SGPT < 9 U/L (7.0-40); AST/SGOT 14 U/L (<34); BILIRUBIN,TOTAL 0.4 MG/DL (0.3-1.2); BLOOD UREA NITROGEN 23 MG/DL (9-23); CARBON DIOXIDE LEVEL 28 MMOL/L (20-31); CHLORIDE LEVEL 106 MMOL/L (98-107); CREATININE FOR GFR 0.81 MG/DL (0.55-1.30); FREE T4 1.22 NG/DL (0.89-1.76); GLOMERULAR FILTRATION RATE > 60.0 (>45); GLUCOSE, FASTING 79 MG/DL (74-106); POTASSIUM SERUM 4.3 MMOL/L (3.5-5.1); SODIUM LEVEL 140 MMOL/L (136-145); THYROID STIMULATING HORMONE 2.023 uIU/ML (0.55-4.78)
== END ==
LOC: M SFHCCLAY 10:46
PROVIDERS: ATTEND Family Medicine
DX: R79.89 Other specified abnormal findings of blood chemistry (principal); I10 Essential (primary) hypertension; R53.83 Other fatigue; D64.9 Anemia, unspecified

== ENCOUNTER → 2023-11-08 | Outpatient (CLI) | payer MEDICARE, BC | LOC: M PLAIMG 07:35 | PROVIDERS: ATTEND Family Medicine | DX: M54.89 Other dorsalgia (principal); K50.90 Crohn's disease, unspecified, without complications; C21.0 Malignant neoplasm of anus, unspecified; K57.90 Diverticulosis of intestine, part unspecified, without perforation or abscess without bleeding ==

== ENCOUNTER → 2024-01-20 | Outpatient (REF) | payer MEDICARE, BC ==
[2024-01-20 12:34] LABS: HEMATOCRIT 35.7 % (36.0-47.0); HEMOGLOBIN 11.9 g/dl (12.0-15.5); MEAN CORPUSCULAR HEMOGLOBIN 33.1 pg (27.0-33.0); MEAN CORPUSCULAR HGB CONC 33.3 g/dl (32.0-36.5); MEAN CORPUSCULAR VOLUME 99.4 fl (80.0-96.0); PLATELET COUNT, AUTOMATED 209 10^3/uL (150-450); RED BLOOD COUNT 3.59 10^6/uL (4.00-5.40); WHITE BLOOD COUNT 3.1 10^3/uL (4.0-10.0)
[2024-01-20 12:41] LABS: ERYTHROCYTE SEDIMENTATION RATE 14 mm/hr (0-30)
[2024-01-20 12:57] LABS: C REACTIVE PROTEIN QUANTITATIV < 0.40 MG/DL (<1.0)
[2024-01-20 12:58] LABS: ALBUMIN 3.7 G/DL (3.2-5.2); ALKALINE PHOSPHATASE 48 U/L (46-116); ALT/SGPT 14 U/L (7.0-40); AST/SGOT 9 U/L (<34); BILIRUBIN,TOTAL 0.5 MG/DL (0.3-1.2); BLOOD UREA NITROGEN 26 MG/DL (9-23); CARBON DIOXIDE LEVEL 27 MMOL/L (20-31); CHLORIDE LEVEL 109 MMOL/L (98-107); CPK CREATINE PHOSPHOKINASE 54 U/L (34-145); CREATININE FOR GFR 0.79 MG/DL (0.55-1.30); GLOMERULAR FILTRATION RATE > 60.0 (>45); GLUCOSE, FASTING 107 MG/DL (74-106); POTASSIUM SERUM 4.4 MMOL/L (3.5-5.1); SODIUM LEVEL 141 MMOL/L (136-145)
[2024-01-20 13:00] LABS: RHEUMATOID FACTOR QUANT < 3.5 IU/ML (<14); THYROID STIMULATING HORMONE 1.674 uIU/ML (0.55-4.78)
[2024-01-20 13:01] LABS: FREE T4 1.24 NG/DL (0.89-1.76)
[2024-01-20 13:25] LABS: HEMOGLOBIN A1c 5.3 % (4.0-6.0)
[2024-01-21 13:07] LABS: VITAMIN D 1,25 DIHYDROXY 46.3 pg/mL (24.8-81.5)
[2024-01-21 20:17] LABS: ANA PATTERN Nuclear, Homogeneous (NEGATIVE); ANA SCREEN, IFA POSITIVE (NEGATIVE)
[2024-01-21 23:27] LABS: CYCLIC CITRULLINATED PEPTIDE < 16 UNITS (<20)
[2024-01-23 17:32] LABS: LYME TOTAL ANTIBODY CIA <= 0.90 Index (<=0.90)
== END ==
LOC: M SFHCCLAY 08:19
PROVIDERS: ATTEND Family Medicine
DX: I10 Essential (primary) hypertension (principal); M79.10 Myalgia, unspecified site; R79.89 Other specified abnormal findings of blood chemistry; E55.9 Vitamin D deficiency, unspecified

== ENCOUNTER → 2024-01-23 | Outpatient (CLI) | payer MEDICARE, BC | LOC: M CLY 12:44 | PROVIDERS: ATTEND Family Medicine | DX: M47.814 Spondylosis without myelopathy or radiculopathy, thoracic region (principal); M19.011 Primary osteoarthritis, right shoulder; M47.816 Spondylosis without myelopathy or radiculopathy, lumbar region ==

== ENCOUNTER → 2024-01-23 | Outpatient (CLI) | payer MEDICARE, BC | LOC: M CLY 12:31 | PROVIDERS: ATTEND Family Medicine | DX: M25.511 Pain in right shoulder (principal); M54.6 Pain in thoracic spine; M54.50 Low back pain, unspecified ==

== ENCOUNTER → 2024-06-15 | Outpatient (REF) | payer MEDICARE, BC ==
[2024-06-15 17:29] LABS: APPEARANCE, URINE CLEAR (CLEAR); BACTERIA, URINE AUTO NEGATIVE (NEGATIVE); BILIRUBIN, URINE AUTO NEGATIVE (NEGATIVE); BLOOD, URINE BLOOD NEGATIVE (NEGATIVE); COLOR, URINE YELLOW (YELLOW); GLUCOSE, URINE (UA) AUTO 3+ mg/dL (NEGATIVE); KETONE, URINE AUTO NEGATIVE (NEGATIVE); LEUKOCYTE ESTERASE, URINE AUTO NEGATIVE (NEGATIVE); NITRITE, URINE AUTO NEGATIVE (NEGATIVE); PROTEIN, URINE AUTO NEGATIVE (NEGATIVE); RBC, URINE AUTO 0 /HPF (0-3); SPECIFIC GRAVITY URINE AUTO 1.018 (1.002-1.035); SQUAMOUS EPITHELIAL CELL UR AU 0 /HPF (0-6); UROBILINOGEN, URINE AUTO 0.2 mg/dL (0.0-2.0); WBC, URINE AUTO 1 /HPF (0-3)
== END ==
LOC: M SMT 17:03
PROVIDERS: ATTEND Urology
DX: N39.0 Urinary tract infection, site not specified (principal)

== ENCOUNTER → 2024-06-25 | Outpatient (REF) | payer MEDICARE, BC ==
[2024-06-25 12:40] LABS: ALBUMIN 3.6 G/DL (3.2-5.2); ALKALINE PHOSPHATASE 35 U/L (35-104); ALT/SGPT 35 U/L (7.0-40); AST/SGOT 24 U/L (<34); BILIRUBIN,TOTAL 0.7 MG/DL (0.3-1.2); BLOOD UREA NITROGEN 22 MG/DL (9-23); CALCIUM LEVEL 9.5 MG/DL (8.3-10.6); CARBON DIOXIDE LEVEL 29 MMOL/L (20-31); CHLORIDE LEVEL 105 MMOL/L (98-107); CREATININE FOR GFR 0.89 MG/DL (0.55-1.30); GLOMERULAR FILTRATION RATE > 60.0 (>39); GLUCOSE, FASTING 116 MG/DL (74-106); MAGNESIUM LEVEL 2.1 MG/DL (1.8-2.4); POTASSIUM SERUM 4.3 MMOL/L (3.5-5.1); SODIUM LEVEL 143 MMOL/L (136-145); TOTAL PROTEIN 6.1 G/DL (5.7-8.2)
[2024-06-25 13:33] LABS: BASO % 0.8 % (0.0-1.0); EOS # 0.1 10^3/uL (0.0-0.5); EOS % 2.4 % (0.0-3.0); HEMOGLOBIN 11.2 g/dl (12.0-15.5); LYMPH # 1.4 10^3/uL (1.5-5.0); LYMPH % 37.3 % (24.0-44.0); MEAN CORPUSCULAR HEMOGLOBIN 32.2 pg (27.0-33.0); MEAN CORPUSCULAR HGB CONC 31.1 g/dl (32.0-36.5); MEAN CORPUSCULAR VOLUME 103.4 fl (80.0-96.0); MONO # 0.3 10^3/uL (0.0-0.8); MONO % 8.4 % (2.0-8.0); NEUTROPHILS # 1.9 10^3/uL (1.5-8.5); NEUTROPHILS % 50.8 % (36.0-66.0); RED BLOOD COUNT 3.48 10^6/uL (4.00-5.40); WHITE BLOOD COUNT 3.7 10^3/uL (4.0-10.0)
== END ==
LOC: M SFHCCLAY 08:21
PROVIDERS: ATTEND Family Medicine
DX: R79.89 Other specified abnormal findings of blood chemistry (principal); M79.10 Myalgia, unspecified site; N39.0 Urinary tract infection, site not specified; I10 Essential (primary) hypertension

== ENCOUNTER → 2024-06-26 | Outpatient (REF) | payer MEDICARE, BC ==
[2024-06-26 12:25] LABS: APPEARANCE, URINE HAZY (CLEAR); BACTERIA, URINE AUTO NEGATIVE (NEGATIVE); BILIRUBIN, URINE AUTO NEGATIVE (NEGATIVE); BLOOD, URINE BLOOD NEGATIVE (NEGATIVE); COLOR, URINE YELLOW (YELLOW); GLUCOSE, URINE (UA) AUTO NEGATIVE (NEGATIVE); KETONE, URINE AUTO NEGATIVE (NEGATIVE); LEUKOCYTE ESTERASE, URINE AUTO NEGATIVE (NEGATIVE); MUCUS, URINE SMALL (NEGATIVE); NITRITE, URINE AUTO NEGATIVE (NEGATIVE); PROTEIN, URINE AUTO NEGATIVE (NEGATIVE); RBC, URINE AUTO 0 /HPF (0-3); SPECIFIC GRAVITY URINE AUTO 1.015 (1.002-1.035); SQUAMOUS EPITHELIAL CELL UR AU 0 /HPF (0-6); UROBILINOGEN, URINE AUTO 0.2 mg/dL (0.0-2.0); WBC, URINE AUTO 0 /HPF (0-3)
== END ==
LOC: M SFHCCLAY 11:36
PROVIDERS: ATTEND Family Medicine
DX: R79.89 Other specified abnormal findings of blood chemistry (principal); M79.10 Myalgia, unspecified site; N39.0 Urinary tract infection, site not specified

== ENCOUNTER → 2024-08-06 | Outpatient (REF) | payer MEDICARE, BC ==
[2024-08-06 12:39] LABS: MAGNESIUM LEVEL 2.2 MG/DL (1.8-2.4); THYROID STIMULATING HORMONE 2.166 uIU/ML (0.55-4.78)
[2024-08-06 12:40] LABS: IRON (FE) 90 UG/DL (50-170)
[2024-08-06 12:41] LABS: FOLATE > 24.00 NG/ML (>5.4)
[2024-08-06 12:42] LABS: VITAMIN B12 LEVEL 1285 PG/ML (211-911)
== END ==
LOC: M SFHCCLAY 08:33
PROVIDERS: ATTEND Family Medicine
DX: D64.9 Anemia, unspecified (principal); R79.89 Other specified abnormal findings of blood chemistry; M79.10 Myalgia, unspecified site; I10 Essential (primary) hypertension; R53.83 Other fatigue; R94.5 Abnormal results of liver function studies

== ENCOUNTER → 2024-08-06 | Outpatient (REF) | payer MEDICARE, BC ==
[2024-08-06 13:06] LABS: ALBUMIN 3.6 G/DL (3.2-5.2); BILIRUBIN,DIRECT 0.1 MG/DL (<0.4); BILIRUBIN,TOTAL 0.4 MG/DL (0.3-1.2); TOTAL PROTEIN 6.1 G/DL (5.7-8.2)
== END ==
LOC: M LABDRAWC 11:57
DX: R94.5 Abnormal results of liver function studies (principal)

== ENCOUNTER → 2024-11-03 | Outpatient (REF) | payer MEDICARE, BC ==
[2024-11-03 12:38] LABS: ALBUMIN 3.8 G/DL (3.2-5.2); ALKALINE PHOSPHATASE 39 U/L (35-104); ALT/SGPT 21 U/L (7.0-40); AST/SGOT 12 U/L (<34); BILIRUBIN,TOTAL 0.6 MG/DL (0.3-1.2); BLOOD UREA NITROGEN 23 MG/DL (9-23); CALCIUM LEVEL 9.1 MG/DL (8.3-10.6); CARBON DIOXIDE LEVEL 27 MMOL/L (20-31); CHLORIDE LEVEL 105 MMOL/L (98-107); CHOLESTEROL LEVEL 199 MG/DL (<200); CHOLESTEROL RISK RATIO 3.49 (<5); CREATININE FOR GFR 0.77 MG/DL (0.55-1.30); GLOMERULAR FILTRATION RATE 82.9 (>39); GLUCOSE, FASTING 110 MG/DL (74-106); IRON (FE) 106 UG/DL (50-170); LDL CHOLESTEROL 114.4 MG/DL (<100); SODIUM LEVEL 143 MMOL/L (136-145); TOTAL PROTEIN 6.2 G/DL (5.7-8.2); TRIGLYCERIDES LEVEL 138 MG/DL (<150)
[2024-11-03 12:40] LABS: FOLATE > 24.00 NG/ML (>5.4); FREE T4 1.56 NG/DL (0.89-1.76); THYROID STIMULATING HORMONE 1.982 uIU/ML (0.55-4.78)
[2024-11-03 12:41] LABS: VITAMIN B12 LEVEL 1999 PG/ML (211-911)
== END ==
LOC: M SFHCCLAY 07:28
PROVIDERS: ATTEND Family Medicine
DX: D64.9 Anemia, unspecified (principal); R79.89 Other specified abnormal findings of blood chemistry; I10 Essential (primary) hypertension; E55.9 Vitamin D deficiency, unspecified; R06.02 Shortness of breath; R60.0 Localized edema

== ENCOUNTER → 2024-11-03 | Outpatient (REF) | payer MEDICARE, BC ==
[2024-11-03 12:37] LABS: CALCIUM LEVEL 9.4 MG/DL (8.3-10.6); CREATININE FOR GFR 0.8 MG/DL (0.55-1.30); GLOMERULAR FILTRATION RATE 79.2 (>39); POTASSIUM SERUM 4.1 MMOL/L (3.5-5.1)
== END ==
LOC: M LABDRAWC 11:42
PROVIDERS: ATTEND Internal Medicine Cardiovascular Disease
DX: R06.02 Shortness of breath (principal); R60.0 Localized edema

== ENCOUNTER → 2024-11-26 | Outpatient (CLI) | payer MEDICARE, BC | LOC: M PLAIMG 10:30 | PROVIDERS: ATTEND Family Medicine | DX: S43.431A Superior glenoid labrum lesion of right shoulder, initial encounter (principal); S46.011A Strain of muscle(s) and tendon(s) of the rotator cuff of right shoulder, initial encounter ==

== ENCOUNTER → 2025-02-03 | Outpatient (CLI) | payer MEDICARE, BC ==
[~2025-02-03] MED LIST changes: +AZAT50TA37 PO; +BACI1TAB20 PO; +CVS1CHW58 PO; +DULO1CAP5 PO; +ELIQ5TAB PO; +FURO20TA2 PO; +HUMI40IN2; +MAGN250T17 PO; +MESA1.2T PO; +NITR50CA34 PO; +OMEP40CA5 PO; +PRED5TA PO; +ROSU5TAB49 PO
[2025-02-03 09:47] LABS: APPEARANCE, URINE CLEAR (CLEAR); BACTERIA, URINE AUTO NEGATIVE (NEGATIVE); BILIRUBIN, URINE AUTO NEGATIVE (NEGATIVE); BLOOD, URINE BLOOD NEGATIVE (NEGATIVE); GLUCOSE, URINE (UA) AUTO NEGATIVE (NEGATIVE); KETONE, URINE AUTO NEGATIVE (NEGATIVE); LEUKOCYTE ESTERASE, URINE AUTO NEGATIVE (NEGATIVE); MUCUS, URINE SMALL (NEGATIVE); NITRITE, URINE AUTO NEGATIVE (NEGATIVE); PROTEIN, URINE AUTO NEGATIVE (NEGATIVE); RBC, URINE AUTO 0 /HPF (0-3); SPECIFIC GRAVITY URINE AUTO 1.008 (1.002-1.035); SQUAMOUS EPITHELIAL CELL UR AU 0 /HPF (0-6); UROBILINOGEN, URINE AUTO 0.2 mg/dL (0.0-2.0); WBC, URINE AUTO 1 /HPF (0-3)
[2025-02-03 10:02] LABS: ESTIMATED AVERAGE GLUCOSE 117.0 MG/DL (60-110)
[2025-02-03 10:40] LABS: ALT/SGPT 19 U/L (7.0-40); AST/SGOT 20 U/L (<34); CALCIUM LEVEL 9.4 MG/DL (8.3-10.6); CARBON DIOXIDE LEVEL 29 MMOL/L (20-31); CHLORIDE LEVEL 103 MMOL/L (98-107); CREATININE FOR GFR 0.91 MG/DL (0.55-1.30); GLOMERULAR FILTRATION RATE 67.9 (>39); POTASSIUM SERUM 4.2 MMOL/L (3.5-5.1); SODIUM LEVEL 142 MMOL/L (136-145)
[2025-02-03 10:42] LABS: FREE T4 1.64 NG/DL (0.89-1.76)
[2025-02-03 10:50] LABS: VITAMIN B12 LEVEL > 2000 PG/ML (211-911)
== END ==
LOC: M LAB 08:44
PROVIDERS: ATTEND Family Medicine
DX: R79.89 Other specified abnormal findings of blood chemistry (principal); R73.09 Other abnormal glucose; D64.9 Anemia, unspecified; R39.15 Urgency of urination; I10 Essential (primary) hypertension

== ENCOUNTER → 2025-06-01 | Outpatient (REF) | payer MEDICARE, BC ==
[2025-06-01 12:11] LABS: BASO # 0.0 10^3/uL (0.0-0.2); BASO % 0.5 % (0.0-1.0); EOS # 0.0 10^3/uL (0.0-0.5); EOS % 1.8 % (0.0-3.0); LYMPH # 0.9 10^3/uL (1.5-5.0); LYMPH % 42.7 % (24.0-44.0); MONO # 0.2 10^3/uL (0.0-0.8); MONO % 9.5 % (2.0-8.0); NEUTROPHILS # 1.0 10^3/uL (1.5-8.5); NEUTROPHILS % 45.5 % (36.0-66.0); PLATELET COUNT, AUTOMATED 178 10^3/uL (150-450)
[2025-06-01 12:32] LABS: APPEARANCE, URINE CLEAR (CLEAR); BACTERIA, URINE AUTO NEGATIVE (NEGATIVE); BILIRUBIN, URINE AUTO NEGATIVE (NEGATIVE); BLOOD, URINE BLOOD NEGATIVE (NEGATIVE); GLUCOSE, URINE (UA) AUTO NEGATIVE (NEGATIVE); KETONE, URINE AUTO NEGATIVE (NEGATIVE); LEUKOCYTE ESTERASE, URINE AUTO NEGATIVE (NEGATIVE); NITRITE, URINE AUTO NEGATIVE (NEGATIVE); PROTEIN, URINE AUTO NEGATIVE (NEGATIVE); RBC, URINE AUTO 0 /HPF (0-3); SPECIFIC GRAVITY URINE AUTO 1.009 (1.002-1.035); SQUAMOUS EPITHELIAL CELL UR AU 0 /HPF (0-6); UROBILINOGEN, URINE AUTO 0.2 mg/dL (0.0-2.0); WBC, URINE AUTO 0 /HPF (0-3)
[2025-06-01 12:35] LABS: ALT/SGPT 14.0 U/L (7.0-40); AST/SGOT 16.0 U/L (<34); CALCIUM LEVEL 9.0 MG/DL (8.3-10.6); CARBON DIOXIDE LEVEL 28.0 MMOL/L (20-31); CHLORIDE LEVEL 106.0 MMOL/L (98-107); CREATININE FOR GFR 0.77 MG/DL (0.55-1.30); GLOMERULAR FILTRATION RATE 82.4 (>39); POTASSIUM SERUM 4.4 MMOL/L (3.5-5.1); SODIUM LEVEL 143.0 MMOL/L (136-145)
[2025-06-01 12:37] LABS: FREE T4 1.34 NG/DL (0.89-1.76)
[2025-06-01 12:41] LABS: INR 1.08
[2025-06-01 12:45] LABS: ESTIMATED AVERAGE GLUCOSE 108.0 MG/DL (60-110)
== END ==
LOC: M SFHCCLAY 09:35
PROVIDERS: ATTEND Family Medicine
DX: Z01.818 Encounter for other preprocedural examination (principal); R79.89 Other specified abnormal findings of blood chemistry; R73.09 Other abnormal glucose; I10 Essential (primary) hypertension; N39.0 Urinary tract infection, site not specified

== ENCOUNTER → 2025-07-05 | Outpatient (REF) | payer MEDICARE, BC ==
[2025-07-05 12:53] LABS: BASO # 0.0 10^3/uL (0.0-0.2); BASO % 0.4 % (0.0-1.0); EOS # 0.1 10^3/uL (0.0-0.5); EOS % 2.4 % (0.0-3.0); LYMPH # 1.2 10^3/uL (1.5-5.0); LYMPH % 49.0 % (24.0-44.0); MONO # 0.2 10^3/uL (0.0-0.8); MONO % 8.4 % (2.0-8.0); NEUTROPHILS # 1.0 10^3/uL (1.5-8.5); NEUTROPHILS % 39.8 % (36.0-66.0); PLATELET COUNT, AUTOMATED 295 10^3/uL (150-450)
== END ==
LOC: M SFHCCLAY 08:52
PROVIDERS: ATTEND Family Medicine
DX: D72.810 Lymphocytopenia (principal)